=== PATIENT | male | born 1975 | race Caucasian/White ===

== ENCOUNTER → 2016-07-31 | Outpatient (CLI) | payer OTHER ==
[~2016-07-31] MED LIST: APIX1TAB PO; ASPI81TA28 PO; AZITTAB PO; B-COCAP20 PO; CALC0.5C PO; CYCL5TAB PO; DXY100 PO; HYDR-4717 PO; INSDGIPEN SC; ISOS20TA15 PO; METO25TA3 PO; METO5TAB5 PO; METR500T PO; NVLGI/PEN SC; RCL25 PO; SEVE800T7 PO; SPIR25TA PO; TOBR0.3S4 OPL; TORS100T13 PO; TORS20TA2 PO; TPRSR25 PO; VNTHFA/IN INH
[2016-07-31 14:44] LABS: BASO % 0.3 %; BASO ABS # 0.04 K/uL (0-0.2); COMPLETE YES; EOS % 0.1 %; HEMATOCRIT 32.6 % (42-52); IG% 0.3 %; LYMPH % 7.5 %; LYMPH ABS # 1.09 K/uL (1.2-3.4); MEAN CELL VOLUME 91.1 fL (80-100); MEAN CORPUSCULAR HEMOGLOBIN 30.2 pg (25-34); MEAN CORPUSCULAR HGB CONC 33.1 g/dl (32-36); MEAN PLATELET VOLUME 12.1 fL (7.4-10.4); MONO % 10.7 %; NEUT % 81.1 %; PLATELET COUNT 301 K/uL (130-400); RED BLOOD COUNT 3.58 M/uL (4.7-6.1); WHITE BLOOD COUNT 14.45 K/uL (4.8-10.8)
[2016-07-31 15:37] LABS: BLOOD UREA NITROGEN 172 mg/dl (7-18); BUN/CREATININE RATIO 20.7 (10-20); CALCIUM 10.5 mg/dl (8.5-10.1); CARBON DIOXIDE 24 mmol/L (21-32); CHLORIDE 95 mmol/L (98-107); GLUCOSE 171 mg/dl (70-99); MAGNESIUM 2.8 mg/dl (1.8-2.4); PHOSPHORUS 8.8 mg/dl (2.5-4.9); POTASSIUM 4.3 mmol/L (3.5-5.1); SODIUM 135 mmol/L (136-145)
== END | disposition home or self-care (01) ==
LOC: C.LAB1850 12:41
PROVIDERS: ATTEND Internal Medicine Nephrology
DX: D64.9 Anemia, unspecified (principal)

== ENCOUNTER 2016-08-02 05:27 | Inpatient (IN) | payer OTHER ==
[~2016-08-02] VITALS: Ht 190.5 cm; Wt 100.8 kg
[~2016-08-02 05:27] MED LIST changes: -APIX1TAB PO; -ASPI81TA28 PO; -B-COCAP20 PO; -CALC0.5C PO; -DXY100 PO; -HYDR-4717 PO; -INSDGIPEN SC; -ISOS20TA15 PO; -METO25TA3 PO; -METO5TAB5 PO; -METR500T PO; -NVLGI/PEN SC; -RCL25 PO; -SEVE800T7 PO; -SPIR25TA PO; -TORS100T13 PO; -TORS20TA2 PO; -TPRSR25 PO; -VNTHFA/IN INH
[2016-08-02 05:51] LABS: HEMATOCRIT 33.4 % (42-52); MEAN CELL VOLUME 89.3 fL (80-100); MEAN CORPUSCULAR HEMOGLOBIN 28.9 pg (25-34); MEAN CORPUSCULAR HGB CONC 32.3 g/dl (32-36); PLATELET COUNT 282 K/uL (130-400); RED BLOOD COUNT 3.74 M/uL (4.7-6.1); WHITE BLOOD COUNT 12.64 K/uL (4.8-10.8)
--- NOTE | 2016-08-02 05:56 | EMERGENCY ROOM VISIT NOTE ---
History Report prepared by Sun: Cristino Gambino Under the Supervision of: Dr. Elena Oconnell D.O. First contact with patient: 05:32 Chief Complaint: CHEST PAIN Stated Complaint: CHEST PAIN,LEGS NUMB History of Present Illness The patient is a 41 year old male who presents to the Emergency Room with complaints of resolved left sided chest pain starting around 8 pm last night. He describes it as a pinching pain. He had pain radiation to the back. His pain resolved on the way to the Emergency Room. He currently denies any chest pain. He also complains of bilateral lower extremity weakness. He has left leg pain which is similar to his previous sciatica pain. He had 2 hours of sleep last night due to the pain. He was evaluated by his PCP yesterday and had some blood work done. He has a defibrillator in place. He has a history of diabetes, hypertension, and A-Fib. He denies any history of myocardial infarction. About three and a half years ago, the patient had a cardiac catheterization which was clear. He was recently diagnosed with bronchitis. The patient has a history of kidney disease and he is scheduled to have vein mapping performed today at [place]. Source of History: patient Onset: around 8 pm last night Position: chest (left) Quality: other (pinching pain) Timing: resolved Associated Symptoms: + weakness Review of Systems See HPI for pertinent positives & negatives. A total of 10 systems reviewed and were otherwise negative. Past Medical & Surgical Medical Problems: (1) A-fib (2) Chest pain (3) Diabetes (4) Hypertension Family History Patient reports no known family medical history. Social History Smoking Status: Former Smoker Marital Status: single Occupation Status: unemployed Current/Historical Medications Scheduled Aspirin (Aspirin Ec), 81 MG PO DAILY Azithromycin (Zithromax Z-Chetan), 1 PKT PO UD Cyclobenzaprine Hcl (Flexeril), 5 MG PO TID Hydralazine Hcl (Apresoline), 50 MG PO TID Insulin Aspart (Novolog Flexpen), UNITS SC AC Insulin Glargine (Lantus Solostar), 38 UNITS SC QPM Isosorbide Dinitrate (Isordil), 20 MG PO BID Metolazone (Zaroxolyn), 5 MG PO DAILY Sevelamer Carbonate (Renvela), 1 TAB PO AC Spironolactone (Aldactone), 25 MG PO DAILY Tobramycin Sulfate (Ophth) (Tobrex Oph Jessica), 1 DROPS OPL DAILY Torsemide (Demadex), 20 MG PO QPM Torsemide (Demadex), 100 MG PO QAM Scheduled PRN Albuterol Hfa (Ventolin Hfa), 2 PUFFS INH Q6H PRN for SOB/Wheezing Allergies Coded Allergies: Cat Dander (Verified Allergy, Intermediate, RESPIRATORY SX, 08/02/16) Dust (Verified Allergy, Intermediate, ASTHMA SYMPTOMS, 08/02/16) Heparin (Verified Allergy, Intermediate, GI SYMPTOMS, 08/02/16) Uncoded Allergies: CIGARETTE SMOKE (Allergy, Unknown, SOB/COUGH, 08/02/16) WEATHER CHANGES (Allergy, Unknown, GETS SICK, 08/02/16) Physical Exam Vital Signs Date Time Temp Pulse Resp B/P (MAP) Pulse Ox O2 Delivery O2 Flow Rate FiO2 08/02/16 06:55 36.8 88 18 168/113 95 08/02/16 06:30 88 18 174/111 95 Room Air 08/02/16 05:42 95 Room Air 08/02/16 05:41 86 08/02/16 05:28 36.8 87 24 157/99 96 Room Air Physical Exam General: Slightly confused. HEENT: Head - normocephalic and atraumatic Pupils are equal, round, and reactive to light. Extraocular eye muscles are intact, and sclera are anicteric. Nose - moist nasal mucosa without discharge. Mouth - dry buccal mucosa. Oropharynx is nonerythematous and there is no tonsillar exudate or edema noted. Neck: Supple; no JVD, nuchal rigidity, cervical lymphadenopathy. Heart: Regular rate and rhythm. There is a normal S1 and S2 with no murmurs, clicks, or gallops appreciated. Lungs: Clear to auscultation bilaterally with no wheezes, rales, or rhonchi. Abdomen: Soft, completely nontender, nondistended, with good bowel sounds. There are no palpable pulsatile masses or hepatosplenomegaly. There is no guarding, rigidity, or rebound noted. Extremities: No evidence of cyanosis, clubbing, or edema. There are easily palpable peripheral pulses. Skin: warm and dry with good turgor and no rashes. Medical Decision & Procedures ER Provider Diagnostic Interpretation: X-ray results as stated below per interpretation by me: CHEST X-RAY Defibrillator in place, cardiomegaly, no pulmonary infiltrates. Laboratory Results 08/02/16 05:35 Red Blood Count 3.74, Mean Corpuscular Volume 89.3, Mean Corpuscular Hemoglobin 28.9, Mean Corpuscular Hemoglobin Concent 32.3, Mean Platelet Volume 11.0, Neutrophils (%) (Auto) 71.0, Lymphocytes (%) (Auto) 10.3, Monocytes (%) (Auto) 15.3, Eosinophils (%) (Auto) 2.6, Basophils (%) (Auto) 0.6, Neutrophils # (Auto ) 8.97, Lymphocytes # (Auto) 1.30, Monocytes # (Auto) 1.94, Eosinophils # (Auto ) 0.33, Basophils # (Auto) 0.07 08/02/16 05:35 Test 08/02/16 05:35 White Blood Count 12.64 K/uL (4.8-10.8) Red Blood Count 3.74 M/uL (4.7-6.1) Hemoglobin 10.8 g/dL (14.0-18.0) Hematocrit 33.4 % (42-52) Mean Corpuscular Volume 89.3 fL (80-100) Mean Corpuscular Hemoglobin 28.9 pg (25-34) Mean Corpuscular Hemoglobin Concent 32.3 g/dl (32-36) Platelet Count 282 K/uL (130-400) Mean Platelet Volume 11.0 fL (7.4-10.4) Neutrophils (%) (Auto) 71.0 % Lymphocytes (%) (Auto) 10.3 % Monocytes (%) (Auto) 15.3 % Eosinophils (%) (Auto) 2.6 % Basophils (%) (Auto) 0.6 % Neutrophils # (Auto) 8.97 K/uL (1.4-6.5) Lymphocytes # (Auto) 1.30 K/uL (1.2-3.4) Monocytes # (Auto) 1.94 K/uL (0.11-0.59) Eosinophils # (Auto) 0.33 K/uL (0-0.5) Basophils # (Auto) 0.07 K/uL (0-0.2) RDW Standard Deviation 48.7 fL (36.4-46.3) RDW Coefficient of Variation 15.0 % (11.5-14.5) Immature Granulocyte % (Auto) 0.2 % Immature Granulocyte # (Auto) 0.03 K/uL (0.00-0.02) Red Blood Cell Morphology Unremarkable Anion Gap 15.0 mmol/L (3-11) Est Creatinine Clear Calc Drug Dose 15.3 ml/min Estimated GFR () 8.4 Estimated GFR (Non- 7.2 BUN/Creatinine Ratio 21.7 (10-20) Calcium Level 9.9 mg/dl (8.5-10.1) Magnesium Level 2.5 mg/dl (1.8-2.4) Total Bilirubin 1.0 mg/dl (0.2-1) Aspartate Amino Transf (AST/SGOT) 18 U/L (15-37) Alanine Aminotransferase (ALT/SGPT) 20 U/L (12-78) Alkaline Phosphatase 194 U/L (45-117) Total Creatine Kinase 177 U/L (39-308) Creatine Kinase MB 21.8 ng/ml (0.5-3.6) Creatine Kinase MB Ratio 12.3 (0-3.0) Troponin I 0.230 ng/ml (0-0.045) Total Protein 8.7 gm/dl (6.4-8.2) Albumin 2.9 gm/dl (3.4-5.0) Globulin 5.8 gm/dl (2.5-4.0) Albumin/Globulin Ratio 0.5 (0.9-2) Laboratory results per my review. ECG Indication: chest pain Rate (beats per minute): 87 Rhythm: normal sinus Findings: 1st degree AV block, T-wave inversion (Lead I and aVL) Comparison ECG Date: May 2016 Change: no significant change ED Course 0532: Past medical records reviewed. The patient was evaluated in room B02. A complete history and physical exam was performed. A 12 EKG was obtained. An IV lock was initiated and labs were drawn as above. Patient had chest x-ray as described above. We were able to obtain previous laboratory studies from May 2016 in [facility]. We also obtained a 12 EKG from May 2016. 0624: I discussed the patient's case with Dr. Torres, from [facility]. 0628: Upon reevaluation, I discussed findings and results with him. He verbalized agreement of the treatment plan. The patient will be evaluated for further management and care. Medical Decision The patient presents to the Emergency Room with complaints of chest pain. Differential diagnosis includes but is not limited to angina, cardiac ischemia, STEMI, pleurisy, costochondritis. His labs showed white count 12.6, anemic with hemoglobin of 10.8, BUN 178, creatinine 8.2, glucose 144, magnesium 2.5, troponin 0.0230, potassium level 4.3. I attest that I have personally reviewed the patient's current medication list. Patient was found to have an elevated blood pressure and was referred to their primary doctor for recheck and further treatment. The patient is suffering from acute renal failure. He presents to the emergency department with chest pain. EKG was unchanged but the patient does have elevated troponin. The patient will require dialysis. I discussed the case with the [facility] Hospitalist and they will evaluate for further management. The patient was noted to have a low magnesium. Consults Time Called: 619 Consulting Physician: Dr. Torres, from [facility] Hospitalist Service Returned Call: 06 I discussed the patient's case with Dr. Torres, from [facility]. Impression Primary Impression: Acute renal failure Additional Impressions: Acute non-ST segment elevation myocardial infarction Hypomagnesemia Scribe Attestation The scribe's documentation has been prepared under my direction and personally reviewed by me in its entirety. I confirm that the note above accurately reflects all work, treatment, procedures, and medical decision making performed by me. Departure Information Dispostion Being Evaluated By Hospitalist Referrals No Doctor, Assigned (PCP) Patient Instructions My [facility] Problem Qualifiers
[2016-08-02 06:10] LABS: BASO % 0.6 %; BASO ABS # 0.07 K/uL (0-0.2); COMPLETE YES; EOS % 2.6 %; IG% 0.2 %; LYMPH % 10.3 %; MONO % 15.3 %
[2016-08-02 06:12] LABS: ALB/GLOB RATIO 0.5 (0.9-2); BUN/CREATININE RATIO 21.7 (10-20); CALCIUM 9.9 mg/dl (8.5-10.1); CREATININE 8.2 mg/dl (0.60-1.40); MAGNESIUM 2.5 mg/dl (1.8-2.4); POTASSIUM 4.3 mmol/L (3.5-5.1)
[2016-08-02 06:19] LABS: CKMB/CK RATIO 12.3 (0-3.0)
[2016-08-02] MEDS ORDERED: INSDGIPEN SC (06:24)
[2016-08-02] MEDS ORDERED: NVLGI/PEN SC (06:24)
[2016-08-02] MEDS ORDERED: VNTHFA/IN INH (06:26)
[2016-08-02] MEDS ORDERED: ASPI81TA28 PO (06:26)
[2016-08-02] MEDS ORDERED: METO5TAB5 PO (06:28)
[2016-08-02] MEDS ORDERED: TORS20TA2 PO (06:28)
[2016-08-02] MEDS ORDERED: SPIR25TA PO (06:28)
[2016-08-02] MEDS ORDERED: TORS100T13 PO (06:28)
[2016-08-02] MEDS ORDERED: HYDR-4717 PO (06:30)
[2016-08-02] MEDS ORDERED: ISOS20TA15 PO (06:30)
[2016-08-02] MEDS ORDERED: SEVE800T7 PO (06:30)
[2016-08-02 07:00] VITALS: O2SAT 95; BMI 29.2
[2016-08-02] MEDS ORDERED: HydrALAZINE HCL 20 MG/ML VIAL IM PRN (07:15)
--- NOTE | 2016-08-02 07:30 | DIAGNOSTIC IMAGING REPORT ---
CHEST ONE VIEW PORTABLE CLINICAL HISTORY: cp dyspnea COMPARISON STUDY: No previous studies for comparison. FINDINGS: The bones of congestive failure. Moderate cardiomegaly. Unipolar cardiac pacemaker/defibrillator. IMPRESSION: Moderate cardiomegaly. Electronically signed by: Familia Delgado M.D. 08/02/2016 7:29 AM Dictated Date/Time: 08/02/2016 7:27 AM
[2016-08-02 07:58] VITALS: BP 166/103; PULSE 85; TEMP 36.6; O2SAT 98
[2016-08-02] MEDS ORDERED: PNEUMOCOCCAL POLYSACCHARIDES 25 MCG/0.5 ML VIAL/SYR IM. ONE (08:30)
[2016-08-02] MEDS ORDERED: PNEUMOCOCCAL ADMINISTRATION CHARGE ONE (08:30)
--- NOTE | 2016-08-02 08:44 | History and Physical ---
History & Physical Date & Time of Service: Aug 02, 2016 at 07:13 Chief Complaint: Chest Pain,Legs Numb Primary Care Physician: No Doctor, Assigned History of Present Illness Source: patient, clinic records, hospital records 41 year old male with PMH of DM, HTN, CKD stage 5, cardiomyopathy, ICD placement presents to the Emergency Room with complaints chest pain that started around last night. Pt recently moved [facility] to [place]. He does not yet establish with a PCP. Pt said that the pain located below his nipple area, sharp pain, grade 2/10. The pain is radiated to his back. He also complaint left shoulder pain, and right wrist pain associated with 4th and 5th fingers numbness. Pt said that currently he does not have any chest pain. He said that the pain come and goes and usually lasted a few second. he said that nothing triggers the Chest pain. The chest pain can occur at anytime. He also complains of bilateral lower extremity weakness and left leg pain which is similar to his previous sciatica pain. he said the pain kept him up all night. He has a defibrillator in place. He had a cardiac catheterization done 3yrs ago that was normal. He is scheduled to have vein mapping today In [place]. He continues to produce urine. He was recently dx with bronchitis and being treated with Zithromax. Denies any palpitation, SOB, fever and chills. Past Medical/Surgical History Medical Problems: (1) A-fib Status: Resolved (2) Diabetes Status: Chronic (3) Hypertension Status: Chronic Family History Patient reports no known family medical history. Social History Smoking Status: Former Smoker Marital Status: single Occupational Status: unemployed Allergies Coded Allergies: Cat Dander (Verified Allergy, Intermediate, RESPIRATORY SX, 08/02/16) Dust (Verified Allergy, Intermediate, ASTHMA SYMPTOMS, 08/02/16) Heparin (Verified Allergy, Intermediate, GI SYMPTOMS, 08/02/16) Uncoded Allergies: CIGARETTE SMOKE (Allergy, Unknown, SOB/COUGH, 08/02/16) WEATHER CHANGES (Allergy, Unknown, GETS SICK, 08/02/16) Home Medications Scheduled Aspirin (Aspirin Ec), 81 MG PO DAILY Azithromycin (Zithromax Z-Chetan), 1 PKT PO UD Cyclobenzaprine Hcl (Flexeril), 5 MG PO TID Hydralazine Hcl (Apresoline), 50 MG PO TID Insulin Aspart (Novolog Flexpen), UNITS SC AC Insulin Glargine (Lantus Solostar), 38 UNITS SC QPM Isosorbide Dinitrate (Isordil), 20 MG PO BID Metolazone (Zaroxolyn), 5 MG PO DAILY Sevelamer Carbonate (Renvela), 1 TAB PO AC Spironolactone (Aldactone), 25 MG PO DAILY Tobramycin Sulfate (Ophth) (Tobrex Oph Jessica), 1 DROPS OPL DAILY Torsemide (Demadex), 20 MG PO QPM Torsemide (Demadex), 100 MG PO QAM Scheduled PRN Albuterol Hfa (Ventolin Hfa), 2 PUFFS INH Q6H PRN for SOB/Wheezing Review of Systems Constitutional: + fatigue, No fever, No chills, No sweats, No weakness Eyes: No eye pain, No discharge ENT: No hearing loss, No nasal symptoms, No sore throat Respiratory: + cough, No wheezing, No dyspnea at rest Cardiovascular: + chest pain, No orthopnea, No palpitations Abdomen: No pain, No nausea, No vomiting Musculoskeletal: + joint pain, + muscle pain, + problem reported (right wrist pain) Genitourinary - Male: No hematuria, No dysuria Neurologic: No memory loss, No paralysis Psychiatric: No substance abuse Endocrine: + fatigue Hematologic / Lymphatic: No night sweats Integumentary: No rash, No itch Physical Exam Vital Signs Date Time Temp Pulse Resp B/P (MAP) Pulse Ox O2 Delivery O2 Flow Rate FiO2 08/02/16 06:55 36.8 88 18 168/113 95 08/02/16 06:30 88 18 174/111 95 Room Air 08/02/16 05:42 95 Room Air 08/02/16 05:41 86 08/02/16 05:28 36.8 87 24 157/99 96 Room Air General Appearance: WD/WN, no apparent distress Head: normocephalic, atraumatic Eyes: normal inspection, PERRL ENT: hearing grossly normal Neck: supple, no JVD Respiratory/Chest: normal breath sounds, no respiratory distress, no accessory muscle use Cardiovascular: no JVD, no murmur Abdomen/GI: normal bowel sounds, non tender Back: no CVA tenderness, + pertinent finding (back pain) Extremities/Musculoskelatal: no calf tenderness Neurologic/Psych: alert, normal mood/affect, oriented x 3 Skin: warm/dry, no rash, + pertinent finding (Left buttock- (+) small open wound, lower left buttock, no erythema/warmth/tenderness) Diagnostics Laboratory Results Results Past 24 Hours Test 08/02/16 05:35 Range/Units White Blood Count 12.64 4.8-10.8 K/uL Red Blood Count 3.74 4.7-6.1 M/uL Hemoglobin 10.8 14.0-18.0 g/dL Hematocrit 33.4 42-52 % Mean Corpuscular Volume 89.3 80-100 fL Mean Corpuscular Hemoglobin 28.9 25-34 pg Mean Corpuscular Hemoglobin Concent 32.3 32-36 g/dl Platelet Count 282 130-400 K/uL Mean Platelet Volume 11.0 7.4-10.4 fL Neutrophils (%) (Auto) 71.0 % Lymphocytes (%) (Auto) 10.3 % Monocytes (%) (Auto) 15.3 % Eosinophils (%) (Auto) 2.6 % Basophils (%) (Auto) 0.6 % Neutrophils # (Auto) 8.97 1.4-6.5 K/uL Lymphocytes # (Auto) 1.30 1.2-3.4 K/uL Monocytes # (Auto) 1.94 0.11-0.59 K/uL Eosinophils # (Auto) 0.33 0-0.5 K/uL Basophils # (Auto) 0.07 0-0.2 K/uL RDW Standard Deviation 48.7 36.4-46.3 fL RDW Coefficient of Variation 15.0 11.5-14.5 % Immature Granulocyte % (Auto) 0.2 % Immature Granulocyte # (Auto) 0.03 0.00-0.02 K/uL Red Blood Cell Morphology Unremarkable Sodium Level 138 136-145 mmol/L Potassium Level 4.3 3.5-5.1 mmol/L Chloride Level 100 98-107 mmol/L Carbon Dioxide Level 23 21-32 mmol/L Anion Gap 15.0 3-11 mmol/L Blood Urea Nitrogen 178 7-18 mg/dl Creatinine 8.20 0.60-1.40 mg/dl Est Creatinine Clear Calc Drug Dose 15.3 ml/min Estimated GFR () 8.4 Estimated GFR (Non- 7.2 BUN/Creatinine Ratio 21.7 10-20 Random Glucose 144 70-99 mg/dl Calcium Level 9.9 8.5-10.1 mg/dl Magnesium Level 2.5 1.8-2.4 mg/dl Total Bilirubin 1.0 0.2-1 mg/dl Aspartate Amino Transf (AST/SGOT) 18 15-37 U/L Alanine Aminotransferase (ALT/SGPT) 20 12-78 U/L Alkaline Phosphatase 194 45-117 U/L Total Creatine Kinase 177 39-308 U/L Creatine Kinase MB 21.8 0.5-3.6 ng/ml Creatine Kinase MB Ratio 12.3 0-3.0 Troponin I 0.230 0-0.045 ng/ml Total Protein 8.7 6.4-8.2 gm/dl Albumin 2.9 3.4-5.0 gm/dl Globulin 5.8 2.5-4.0 gm/dl Albumin/Globulin Ratio 0.5 0.9-2 Diagnostic Radiology CHEST ONE VIEW PORTABLE CLINICAL HISTORY: cp dyspnea COMPARISON STUDY: No previous studies for comparison. FINDINGS: The bones of congestive failure. Moderate cardiomegaly. Unipolar cardiac pacemaker/defibrillator. IMPRESSION: Moderate cardiomegaly. Electronically signed by: Familia Delgado M.D. 08/02/2016 7:29 AM Dictated Date/Time: 08/02/2016 7:27 AM Impression Assessment and Plan CHEST PAIN Significant risks factor such as DM, HTN, CKD stage 5, Cardiomyopathy Need to R/O ACS 1set troponin elevated EKG did not show any significant ischemic changes Will monitor serial CM, check lipid panel If troponin trending up, will consult cardiology Monitor in telemetry Continue aspirin Pharmacology Nuclear Stress test done on 01/26 1) Uneventful regadenoson stress test 2) large size severe intensity basal to mid predominantly fixed inferior wall perfusion defect consistent with infarct with minimal periinfarct ischemia 3) left ventricular cavity size is severly enlarged, reduced systolic function, EF 26% global hypokinesis with akinetic basal to mid inferior wall ELEVATED TROPONIN Possible related to CKD stage 5 monitor troponin repeat EKG if chest pain persists and EKG trending up CKD STAGE 5 Has an appt today for Vein mapping in [place] Will consult Nephrology Consult Vascular surgery for possible vein mapping Avoid nephrotoxic agents CARDIOMYOPATHY Hx ICD placement Monitor in telemetry HTN BP elevated Continue home medS Hydralazine prn for SBP above 165 DM TYPE 2 HBA1C 8.2 on 05/28 Continue Lantus Insulin coverage MILD ELEVATION WBC Afebrile Denies any urinary symptoms Wound doesn't look infected continue monitor CBC LEFT WOUND BUTTOCK Daily wound care wound care consulted BRONCHITIS continue Zithromax for 3 days Duoneb treatment BACK PAIN pain medication prn continue cyclobenzaprine RIGHT WRIST PAIN associated with 4th and 5th fingers numbness Might be related to carpal tunnel denies any recent injury or trauma Will get an Xray of the wrist continue pain management DVT PX on heparin subq CODE STATUS FULL CODE Level of Care Telemetry Resuscitation Status FULL RESUSCITATION VTE Prophylaxis VTE Risk Assessment Done? Y/N: Yes Risk Level: Moderate Given or contraindicated: Unfractionated heparin SQ
[2016-08-02] MEDS ORDERED: GUAIFENESIN 200 MG TAB PO PRN (08:45)
[2016-08-02] MEDS ORDERED: ALBUT/IPRATROP 3MG/0.5MG NEB 3 ML VIAL INH PRN (08:45)
[2016-08-02] MEDS ORDERED: GLUCOSE 40% GEL 15 GM TUBE PO PRN (08:45)
[2016-08-02] MEDS ORDERED: GLUCAGON FOR INJ 1 MG VIAL SQ PRN (08:45)
[2016-08-02] MEDS ORDERED: DEXTROSE 50% 50 ML SYR IV PRN (08:45)
--- NOTE | 2016-08-02 08:50 | DIAGNOSTIC IMAGING REPORT ---
RIGHT WRIST MIN 3 VIEWS ROUTINE CLINICAL HISTORY: Wrist pain Right pain COMPARISON: None. DISCUSSION: Mild degenerative change. Soft tissue vascular calcification. No acute bony abnormality. There is no evidence for soft tissue swelling. IMPRESSION: Minimal/mild degenerative change. Soft tissue vascular calcification. No acute bony abnormality. Electronically signed by: Familia Delgado M.D. 08/02/2016 8:49 AM Dictated Date/Time: 08/02/2016 8:47 AM
[2016-08-02 09:05] LABS: INR 1.2 (0.9-1.1); PROTHROMBIN TIME (PATIENT) 12.5 SECONDS (9.0-12.0)
[2016-08-02] MEDS: ASPIRIN 81 MG ECTAB PO SCH (10:57)
[2016-08-02] MEDS: TOBRAMYCIN SULF 0.3% OP SOLN 5 ML BTL OPL SCH (10:58)
[2016-08-02] MEDS: TORSEMIDE 20 MG TAB PO SCH ×2 (10:59→17:43)
[2016-08-02] MEDS: CYCLOBENZAPRINE HCL 10 MG TAB PO SCH ×3 (10:59→19:42)
[2016-08-02] MEDS: METOLAZONE 5 MG TAB PO SCH (10:59)
[2016-08-02] MEDS: HYDROCODONE/ACETAMOPHEN 5/325MG TAB PO PRN (11:11)
[2016-08-02 11:39] VITALS: BP 166/103; PULSE 86; TEMP 36.7; O2SAT 94
[2016-08-02] MEDS: SPIRONOLACTONE 25 MG TAB PO SCH (11:48)
[2016-08-02] MEDS: AZITHROMYCIN 250 MG TAB PO SCH (11:48)
[2016-08-02] MEDS ORDERED: CLONIDINE HCL 0.1 MG TAB PO PRN (12:00)
[2016-08-02 12:01] LABS: ESTIMATED AVERAGE GLUCOSE 186 mg/dl; HA1C FLAG Normal (Normal)
[2016-08-02] MEDS: ISOSORBIDE DINITRATE 20 MG TAB PO SCH (13:55)
[2016-08-02] MEDS: INSULIN ASPART 100 UNITS/ML 3 ML PEN SC SCH ×3 (13:57→19:42)
[2016-08-02] MEDS: NITROGLYCERIN OINT 2% 1GM PACKET EXT SCH ×3 (13:58→23:02)
[2016-08-02] MEDS ORDERED: HEPARIN SOD 5000 UNIT/0.5 ML CARP SQ SCH (14:00)
--- NOTE | 2016-08-02 14:08 | Progress Note ---
Medicine Progress Note Date & Time of Visit: Aug 02, 2016 at 13:56. Subjective patient seen resting in bed, comfortable appears weak reports intermittent chest pain, more on the left side, radiating to the left arm and back also has chronic sciatica pain- left and bilateral leg pain- cramping worse with ambulation denies headache, dizziness, nausea, abdominal pain, poor appetite no other symptoms Objective Last 8 Hrs Date Time Temp Pulse Resp B/P (MAP) Pulse Ox O2 Delivery O2 Flow Rate FiO2 08/02/16 11:39 36.7 86 16 166/103 (124) 94 Room Air 08/02/16 07:58 36.6 85 18 166/103 (124) 98 Room Air 08/02/16 07:00 95 Room Air 08/02/16 06:55 36.8 88 18 168/113 95 08/02/16 06:30 88 18 174/111 95 Room Air Physical Exam: General- oriented x 3, not in distress, speaks in sentences with no effort Head- atraumatic Eyes- EOMI, anicteric Neck- no JVD Lungs- clear breath sounds bilaterally, no rales/wheezing Heart- regular rhythm; no murmur, normal rate no chest tenderness Abdomen- normal bowel sounds, soft, nontender Extremities- no pretibial edema, no calf tenderness; peripheral pulses intact Left buttock- (+) small open wound, lower left buttock, no erythema/warmth/ tenderness/discharge Neuro- alert, oriented x 3; EOMI; no facial palsy; no dysarthria; motor 5/5 bilaterally Skin- warm & dry Laboratory Results: Last 24 Hours Test 08/02/16 05:35 08/02/16 11:18 08/02/16 11:53 White Blood Count 12.64 K/uL Red Blood Count 3.74 M/uL Hemoglobin 10.8 g/dL Hematocrit 33.4 % Mean Corpuscular Volume 89.3 fL Mean Corpuscular Hemoglobin 28.9 pg Mean Corpuscular Hemoglobin Concent 32.3 g/dl Platelet Count 282 K/uL Mean Platelet Volume 11.0 fL Neutrophils (%) (Auto) 71.0 % Lymphocytes (%) (Auto) 10.3 % Monocytes (%) (Auto) 15.3 % Eosinophils (%) (Auto) 2.6 % Basophils (%) (Auto) 0.6 % Neutrophils # (Auto) 8.97 K/uL Lymphocytes # (Auto) 1.30 K/uL Monocytes # (Auto) 1.94 K/uL Eosinophils # (Auto) 0.33 K/uL Basophils # (Auto) 0.07 K/uL RDW Standard Deviation 48.7 fL RDW Coefficient of Variation 15.0 % Immature Granulocyte % (Auto) 0.2 % Immature Granulocyte # (Auto) 0.03 K/uL Red Blood Cell Morphology Unremarkable Prothrombin Time 12.5 SECONDS Prothromb Time International Ratio 1.2 Sodium Level 138 mmol/L Potassium Level 4.3 mmol/L Chloride Level 100 mmol/L Carbon Dioxide Level 23 mmol/L Anion Gap 15.0 mmol/L Blood Urea Nitrogen 178 mg/dl Creatinine 8.20 mg/dl Est Creatinine Clear Calc Drug Dose 15.3 ml/min Estimated GFR () 8.4 Estimated GFR (Non- 7.2 BUN/Creatinine Ratio 21.7 Random Glucose 144 mg/dl Calcium Level 9.9 mg/dl Magnesium Level 2.5 mg/dl Total Bilirubin 1.0 mg/dl Aspartate Amino Transf (AST/SGOT) 18 U/L Alanine Aminotransferase (ALT/SGPT) 20 U/L Alkaline Phosphatase 194 U/L Total Creatine Kinase 177 U/L Creatine Kinase MB 21.8 ng/ml 19.1 ng/ml Creatine Kinase MB Ratio 12.3 Troponin I 0.230 ng/ml 0.218 ng/ml Total Protein 8.7 gm/dl Albumin 2.9 gm/dl Globulin 5.8 gm/dl Albumin/Globulin Ratio 0.5 Estimated Average Glucose 186 mg/dl Hemoglobin A1c 8.1 % Bedside Glucose 128 mg/dl Assessment & Plan 41 year old male with history of DM Type 2, HTN, CAD, Cardiomyopathy, CKD 5 presenting with chest pain. CHEST PAIN HISTORY OF CAD, CARDIOMYOPATHY Significant risks factor such as DM, HTN, CKD stage 5, Cardiomyopathy -- cardiac markers x stable -- ekg no signs of acute ischemi -- echo: pending -- Cardiology consulted -- on Aspirin, Imdur -- will obtain records from PCP CARDIOMYOPATHY Hx ICD placement euvolemic -- continue Metolazone, Spironolactone, Torsemide CKD STAGE 5 Nephrology consulted HTN add PRN Clonidine on Hydralazine, Imdur Cardiology consulted DM TYPE 2 HBA1C 8.2 on 05/28 Continue Lantus Insulin coverage LEFT WOUND BUTTOCK wound care consulted BRONCHITIS continue Zithromax for 3 days Duoneb treatment BACK PAIN pain medication prn continue cyclobenzaprine RIGHT WRIST PAIN possible carpal tunnel syndrom xray wrist: negative DVT PX SCDs patient reports previous episode of nausea, sweats with heparin- declining heparin stating he does not want any more side effects explained that this is for DVT prevention CODE STATUS FULL CODE Dispo pending Current Inpatient Medications: Current Inpatient Medications Medications (Trade) Dose Ordered Sig/Niki Route Start Time Stop Time Status Last Admin Dose Admin Aspirin (Ecotrin Tab) 81 mg DAILY PO 08/02/16 09:00 09/01/16 08:59 08/02/16 10:57 81 MG Cyclobenzaprine HCl (Flexeril Tab) 5 mg TID PO 08/02/16 09:00 09/01/16 08:59 08/02/16 10:59 5 MG Hydralazine HCl (Apresoline Tab) 50 mg TID PO 08/02/16 09:00 09/01/16 08:59 08/02/16 10:58 50 MG Insulin Glargine (Lantus Solostar Pen) 35 unit QPM SC 08/02/16 21:00 09/01/16 20:59 Isosorbide Dinitrate (Isordil Tab) 20 mg BID@0700,1200 PO 08/02/16 12:00 09/01/16 11:59 Metolazone (Zaroxolyn Tab) 5 mg DAILY PO 08/02/16 09:00 09/01/16 08:59 08/02/16 10:59 5 MG Spironolactone (Aldactone Tab) 25 mg DAILY@0930 PO 08/02/16 09:30 09/01/16 09:29 08/02/16 11:48 25 MG Torsemide (Demadex Tab) 20 mg DAILY@1700 PO 08/02/16 17:00 09/01/16 16:59 Torsemide (Demadex Tab) 100 mg QAM PO 08/02/16 09:00 09/01/16 08:59 08/02/16 10:59 100 MG Hydralazine HCl (HydrALAZINE INJ) 10 mg Q6 PRN IM 08/02/16 07:15 09/01/16 07:14 Azithromycin (Zithromax Tab) 250 mg DAILY PO 08/02/16 10:00 08/09/16 09:59 08/02/16 11:48 250 MG Tobramycin Sulfate (Tobrex Oph Soln) 1 drops DAILY OPL 08/02/16 09:00 08/12/16 08:59 08/02/16 10:58 1 DROPS Insulin Aspart (novoLOG ASPART) SLIDING SCALE If C... ACHS SC 08/02/16 11:00 09/01/16 10:59 Glucose (Glucose 40% Gel) 15-30 GRAMS 15 GRAMS... UD PRN PO 08/02/16 08:45 09/01/16 08:44 Glucose (Glucose Chew Tab) 4-8 Tablets 4 Tabl... UD PRN PO 08/02/16 08:45 09/01/16 08:44 Dextrose (Dextrose 50% 50ML Syringe) 25-50ML OF 50% DW IV FOR... UD PRN IV 08/02/16 08:45 09/01/16 08:44 Glucagon (Glucagon Inj) 1 mg UD PRN SQ 08/02/16 08:45 09/01/16 08:44 Acetaminophen/ Hydrocodone Bitart ([place] 5/325 Tab) 1 tab Q8 PRN PO 08/02/16 08:45 08/16/16 08:44 08/02/16 11:11 1 TAB Albuterol/ Ipratropium (Duoneb) 3 ml Q4R PRN INH 08/02/16 08:45 09/01/16 08:44 Guaifenesin (Organidin Nr Tab) 200 mg Q8 PRN PO 08/02/16 08:45 09/01/16 08:44 Sevelamer HCl (Renvela) 800 mg AC PO 08/02/16 16:15 09/01/16 16:14 Clonidine HCl (Catapres Tab) 0.1 mg Q6H PRN PO 08/02/16 12:00 09/01/16 11:59 Nitroglycerin (Nitroglycerin 2% Oint) 1 inch Q6 EXT 08/02/16 13:00 09/01/16 12:59
[2016-08-02] MEDS ORDERED: PHARMACY GLYCEMIC MGMT CONSULT PRN (14:11)
[2016-08-02] MEDS ORDERED: METOPROLOL SUCC 25MG EXT REL TAB PO ONE (14:17)
[2016-08-02] MEDS ORDERED: PERFLUTREN LIPID MICROSPHERE (DEFINITY) IV ONE (14:35)
[2016-08-02 15:01] VITALS: BP 160/88; PULSE 85; TEMP 36.8; O2SAT 92
--- NOTE | 2016-08-02 15:34 | Pharmacy Progress Note ---
Glycemic Control Intl Consult Date of Service Aug 02, 2016. Scope Glycemic Pharmacist consulted by Dr Gregory on 08/02/16 for glycemic control and to write orders per [facility] inpatient glycemic control protocol Objective Weight (Kilograms): 106.000 Accuchecks BSG (last 24hrs): Test 08/02/16 05:35 08/02/16 11:53 Random Glucose 144 mg/dl (70-99) Bedside Glucose 128 mg/dl (70-99) Laboratory Data (last 24hrs) Test 08/02/16 05:35 08/02/16 11:18 Anion Gap 15.0 mmol/L BUN/Creatinine Ratio 21.7 Blood Urea Nitrogen 178 mg/dl Creatinine 8.20 mg/dl Potassium Level 4.3 mmol/L Sodium Level 138 mmol/L White Blood Count 12.64 K/uL Red Blood Count 3.74 M/uL Hemoglobin 10.8 g/dL Hematocrit 33.4 % Mean Corpuscular Volume 89.3 fL Mean Corpuscular Hemoglobin 28.9 pg Mean Corpuscular Hemoglobin Concent 32.3 g/dl Platelet Count 282 K/uL Mean Platelet Volume 11.0 fL Neutrophils (%) (Auto) 71.0 % Lymphocytes (%) (Auto) 10.3 % Monocytes (%) (Auto) 15.3 % Eosinophils (%) (Auto) 2.6 % Basophils (%) (Auto) 0.6 % Neutrophils # (Auto) 8.97 K/uL Lymphocytes # (Auto) 1.30 K/uL Monocytes # (Auto) 1.94 K/uL Eosinophils # (Auto) 0.33 K/uL Basophils # (Auto) 0.07 K/uL Hemoglobin A1c 8.1 % HbA1c Test 08/02/16 11:18 Hemoglobin A1c 8.1 % (4.5-5.6) H Recent Pertinent Medications Outpatient Anti-diabetic Regimen: * Lantus 38 units qpm, Novolog 10-14 units per sliding scale tidm * A1c = 8.1 % 08/02/16 The patient is currently receiving: * Basal insulin: Lantus 35 units every pm * Correctional Insulin: Novolog Correction per scale ACHS Goal Range: Low 140 mg/dL - High 180 mg/dL Correction Factor: 40 mg/dL/unit * Prandial insulin: Per carb ratio of 1 unit per 14 grams CHO consumed * Oral Agents: none Risk Factors for Insulin Resistance: * Steroids: no * Infection: recent bronchitis, on Zithromax po * Pressors: no * IVF: no * Recent Surgery: no * Diet: type 2 diabetic,AHA, low Na+, low K+, renal * Mechanical Ventilation: no Assessment & Plan ASSESSMENT: * ADA & AACE recommend a goal blood sugar range 140-180 mg/dl for the majority of critically ill & non-critically ill patients. However, more stringent targets may be selected in individual cases. * 41 yo type 2 diabetic rather poorly controlled on insulin, now with chest pain , renal failure. BSG's good so far though stress has increased and po intake has decreased. Will decrease goal range as patient is not critically ill, and tighten correction and carb ratio. Will reassess in am. PLAN FOR INPATIENT GLYCEMIC CONTROL: * Continuing Lantus 35 units SQ HS * Changing correction factor to 20 mg/dl/unit * Changing carb ratio to 1 unit per 7 grams CHO consumed * Changing goal range to Low 110 mg/dL - High 150 mg/dL * Please note that the plan above was derived based on current level of insulin resistance and hospital stress. These recommendations are appropriate for inpatient admission only. Plan of care upon discharge will need to be reassessed to avoid potential outpatient hypo/hyperglycemia. Thank you.
--- NOTE | 2016-08-02 16:19 | CARDIOLOGY CONSULTATION ---
DATE OF CONSULTATION: 08/02/2016 DATE OF CONSULTATION: 08/02/2016. REFERRING PHYSICIAN: Dr. Gregory. INDICATIONS: Chest pain, hypertension, renal insufficiency, elevated troponin. HISTORY OF PRESENT ILLNESS: The patient is a 41-year-old male whose history per review of records is notable for longstanding hypertension with hypertensive heart disease and idiopathic dilated cardiomyopathy, severe LV dysfunction with ejection fraction approximately 25% with chronic class 2-3 heart failure. He has been followed for history of worsening renal insufficiency now stage V. His past evaluations and treatments have included atrial flutter ablation in 2012, remote cardiac catheterization in 2007 without ischemic heart disease, prior history of [employer] ICD implantation with generator exchange in 2007, diabetes, chronic back pain and sciatica per patient. Patient presents now having been admitted with sharp jabbing intermittent pain less than a second in duration across his anterior and left precordium, occasionally intermittent left shoulder numbness and right wrist pain. Symptoms were not exertionally related. Symptoms are brief in nature. Notes no dizziness, lightheadedness. Notes no tachypalpitations. Notes no melena, hematochezia, dysuria or hematuria. Does continue to make urine though notes urine volumes have decreased. Feels weight has been stable. Has been treated recently for bronchitis with azithromycin. Still has residual cough. Notes no overt orthopnea, though does not sleep well at night due to cough and low back pain. Notes no bleeding difficulties. Notes no melena or hematochezia. Notes no headache or visual changes. Feels pain improved after taking usual medications since admission. Notes blood pressure always runs substantially elevated. The patient was markedly hypertensive on admission. He denies any defibrillator tenderness or activation. ALLERGIES: NOTED TO BE CIGARETTE SMOKE, CAT DANDER, DUST, HEPARIN. MEDICATIONS PRIOR TO HOSPITALIZATION: Per report were albuterol inhaler, aspirin 81 mg per day, recent addition of azithromycin, Flexeril 5 mg t.i.d., Apresoline 50 t.i.d., NovoLog and Lantus insulin, Isordil 20 b.i.d., metolazone 5 mg per day, Renvela 1 tablet AC, spironolactone 25 mg per day, torsemide 20 mg p.o. q.p.m., 100 mg q.a.m., Tobrex eyedrops. PAST SURGICAL HISTORY: Notable for as described ICD implantation, single lead 2007 as revision of initial study, prior remote cardiac catheterization in 2007, prior flutter ablation in 2011. SOCIAL HISTORY: The patient is a current resident at [place], is a nonsmoker, nondrinker. 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 FAMILY HISTORY: Positive for hypertension in both parents. Heart disease in grandparents. PHYSICAL EXAMINATION: VITAL SIGNS: Heart rate is 86, blood pressure is 166/103. GENERAL: The patient is an male in no acute distress, feels improved since hospitalization though little change clinically. NECK: Thick. There is no distinct jugular venous distention. LUNGS: Reveal mildly diminished breath sounds, but no rhonchi, rale or wheeze. CARDIOVASCULAR EXAMINATION: Regular. There is a grade 2/6 systolic murmur at the apical heave. There is no diastolic murmur. There is no audible S3 gallop. Pacer defibrillator sites in the right shoulder without tenderness. ABDOMEN: Soft, nontender. EXTREMITIES: Without cyanosis or clubbing. There are chronic stasis changes with 1+ lower extremity edema. DATA: Echocardiogram is pending. EKG reveals sinus rhythm with first degree AV block, rate of 87, left anterior fascicular block. LABORATORY STUDIES: Hemoglobin A1c is 8.1. Sodium is 138, potassium is 4.3, chloride is 100, bicarbonate is 23, BUN is 178, creatinine is 8.2. Troponin is 0.23 and comparable to prior hospitalizations per review of records. Chest x-ray reveals no pulmonary edema. White cell count 12.6, hemoglobin is 10.8. IMPRESSION: A 41-year-old male with history of longstanding hypertension, hypertensive heart disease and nonischemic cardiomyopathy, prior single total ICD implantation in 2007, prior flutter ablation, presents now with history of compensated class 2-3 heart failure with atypical chest pain, sharp, jabbing discomfort in the setting of nonischemic cardiomyopathy and marked uremia. Concern regarding likely component renal insufficiency contributing as well as significant hypertensive disease. PLAN: Will be to add topical nitrates. Echocardiogram will be reviewed. Nephrology will be recommended to be consulted. While in hospital will arrange for pacer defibrillator to be checked if not recently performed. Will add low dose beta viktoriya to regimen cautiously in the setting of first degree AV block with Toprol-XL 12.5 mg twice per day. All other home medications will be continued.
--- NOTE | 2016-08-02 17:10 | Nephrology Consultation ---
Nephrology Consultation Date & Providers Date of Consultation: Aug 02, 2016. Primary Care Provider: No Doctor, Assigned Referring Provider: Reason for Consultation Renal insufficiency History of Present Illness Mr. Cliff Tucker is a 41-year-old male with chronic kidney disease class V. The patient moved to [facility] from [place], [place]. He is now living in [place]. I met the patient in [place] [facility] [place]. He is transferring care from Dr. Mike Figueroa of [facility]. Arrangements for made for vein mapping which was scheduled for today. The patient has an appointment with vascular surgery in [place] next week for PD catheter and AVF placement. Mr. Tucker's baseline creatinine had been approximately 7 milligram/deciliter in May. Creatinine is currently 8. Cliff denied any specific uremic symptoms. His appetite is good. Activity tolerance is also appropriate. He has not witnessed any notable signs of fluid retention. He is interested in home dialysis options. He would like to plan for peritoneal dialysis. The patient's primary care provider in [place] was Dr. Evan Watts. 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 Robinson Hightower of the [place] [facility]. He has not established a primary care physician or global creative chairman locally at this time. Medical history is notable for an idiopathic cardiomyopathy with chronic systolic congestive heart failure. He has an ICD and history of ventricular arrhythmia in the past. Cliff has hypertension as well as adult onset diabetes mellitus. He underwent a left heart catheterization previously which did not show significant coronary artery disease. Most recent hemoglobin A1c was 8.2 in May. He denies significant retinopathy or neuropathy. He has visual loss associated with cataracts. He is planning on scheduling surgery for cataract extraction in the near future. This would be scheduled at [facility] in [facility]. Cliff also reports a significant history of morbid obesity. He has been able to lose nearly 100 lbs over the past several years using diet and regular walking exercise. The patient was evaluated in the emergency department at [facility] earlier this week. He was diagnosed with bronchitis as well as sciatica. Has a chronic history of sciatic pain. He was started on Flexeril to help with lower back symptoms. There has been improvement with the medication. He appears to be tolerating the medication well. He was also given a 5 day course of azithromycin. For mineral bone disorder and hyperphosphatemia, he has been taking Tums 2 tablets with each meal. He is maintained on a vitamin B1 supplement. He presented to the ED at [facility] today with chest pain and worsening symptoms of sciatica in both legs. He denies significant shortness of breath. Blood pressure is elevated. He denies headaches or visual changes. EKG did not show any acute changes. TTE is pending. Cardiology consultation was reviewed. Troponin slightly elevated. Past Medical/Surgical History Medical: Stage 5 chronic kidney disease Anemia DM type 2 Dyslipidemia Heart failure, systolic, due to idiopathic cardiomyopathy Hypertension Obesity Proteinuria Sciatica History of shock History of Respiratory arrest Surgical: ICD placement Allergies Coded Allergies: Cat Dander (Verified Allergy, Intermediate, RESPIRATORY SX, 08/02/16) Dust (Verified Allergy, Intermediate, ASTHMA SYMPTOMS, 08/02/16) Heparin (Verified Allergy, Intermediate, GI SYMPTOMS, 08/02/16) Uncoded Allergies: CIGARETTE SMOKE (Allergy, Unknown, SOB/COUGH, 08/02/16) WEATHER CHANGES (Allergy, Unknown, GETS SICK, 08/02/16) Inpatient Medications Current Inpatient Medications Medications (Trade) Dose Ordered Sig/Niki Route Start Time Stop Time Status Last Admin Dose Admin Aspirin (Ecotrin Tab) 81 mg DAILY PO 08/02/16 09:00 09/01/16 08:59 08/02/16 10:57 81 MG Cyclobenzaprine HCl (Flexeril Tab) 5 mg TID PO 08/02/16 09:00 09/01/16 08:59 08/02/16 13:58 5 MG Hydralazine HCl (Apresoline Tab) 50 mg TID PO 08/02/16 09:00 09/01/16 08:59 08/02/16 13:55 50 MG Insulin Glargine (Lantus Solostar Pen) 35 unit QPM SC 08/02/16 21:00 09/01/16 20:59 Isosorbide Dinitrate (Isordil Tab) 20 mg BID@0700,1200 PO 08/02/16 12:00 09/01/16 11:59 08/02/16 13:55 20 MG Metolazone (Zaroxolyn Tab) 5 mg DAILY PO 08/02/16 09:00 09/01/16 08:59 08/02/16 10:59 5 MG Spironolactone (Aldactone Tab) 25 mg DAILY@0930 PO 08/02/16 09:30 09/01/16 09:29 08/02/16 11:48 25 MG Torsemide (Demadex Tab) 20 mg DAILY@1700 PO 08/02/16 17:00 09/01/16 16:59 Torsemide (Demadex Tab) 100 mg QAM PO 08/02/16 09:00 09/01/16 08:59 08/02/16 10:59 100 MG Hydralazine HCl (HydrALAZINE INJ) 10 mg Q6 PRN IM 08/02/16 07:15 09/01/16 07:14 Azithromycin (Zithromax Tab) 250 mg DAILY PO 08/02/16 10:00 08/09/16 09:59 08/02/16 11:48 250 MG Tobramycin Sulfate (Tobrex Oph Soln) 1 drops DAILY OPL 08/02/16 09:00 08/12/16 08:59 08/02/16 10:58 1 DROPS Insulin Aspart (novoLOG ASPART) SLIDING SCALE If C... ACHS SC 08/02/16 11:00 09/01/16 10:59 08/02/16 13:57 2 UNITS Glucose (Glucose 40% Gel) 15-30 GRAMS 15 GRAMS... UD PRN PO 08/02/16 08:45 09/01/16 08:44 Glucose (Glucose Chew Tab) 4-8 Tablets 4 Tabl... UD PRN PO 08/02/16 08:45 09/01/16 08:44 Dextrose (Dextrose 50% 50ML Syringe) 25-50ML OF 50% DW IV FOR... UD PRN IV 08/02/16 08:45 09/01/16 08:44 Glucagon (Glucagon Inj) 1 mg UD PRN SQ 08/02/16 08:45 09/01/16 08:44 Acetaminophen/ Hydrocodone Bitart ([place] 5/325 Tab) 1 tab Q8 PRN PO 08/02/16 08:45 08/16/16 08:44 08/02/16 11:11 1 TAB Albuterol/ Ipratropium (Duoneb) 3 ml Q4R PRN INH 08/02/16 08:45 09/01/16 08:44 Guaifenesin (Organidin Nr Tab) 200 mg Q8 PRN PO 08/02/16 08:45 09/01/16 08:44 Sevelamer HCl (Renvela) 800 mg AC PO 08/02/16 16:15 09/01/16 16:14 Clonidine HCl (Catapres Tab) 0.1 mg Q6H PRN PO 08/02/16 12:00 09/01/16 11:59 Nitroglycerin (Nitroglycerin 2% Oint) 1 inch Q6 EXT 08/02/16 13:00 09/01/16 12:59 08/02/16 13:58 1 INCH Miscellaneous Information (Consult Glycemic Management Pharmacy) 1 ea UD PRN N/A 08/02/16 14:11 09/01/16 14:10 Metoprolol Succinate (Toprol Xl Tab) 12.5 mg BID PO 08/02/16 21:00 09/01/16 20:59 Family History Patient reports no known family medical history. Social History Smoking Status: Former Smoker Marital Status: single Occupation: unemployed Review of Systems A complete review of systems was performed. Pertinent positives are noted above. All other systems are negative. Physical Exam Date Time Temp Pulse Resp B/P (MAP) Pulse Ox O2 Delivery O2 Flow Rate FiO2 08/02/16 16:00 Room Air 08/02/16 15:01 36.8 85 19 160/88 (112) 92 Room Air 08/02/16 12:00 Room Air 08/02/16 11:39 36.7 86 16 166/103 (124) 94 Room Air 08/02/16 07:58 36.6 85 18 166/103 (124) 98 Room Air 08/02/16 07:00 95 Room Air 08/02/16 06:55 36.8 88 18 168/113 95 08/02/16 06:30 88 18 174/111 95 Room Air 08/02/16 05:42 95 Room Air 08/02/16 05:41 86 08/02/16 05:28 36.8 87 24 157/99 96 Room Air General Appearance: WD/WN, no apparent distress Head: normocephalic, atraumatic Eyes: normal inspection, sclerae normal ENT: normal ENT inspection, pharynx normal Neck: supple, + JVD Respiratory/Chest: lungs clear, no respiratory distress, no accessory muscle use Cardiovascular: regular rate, rhythm, no gallop, + systolic murmur, + pertinent finding (no rub appreciated) Abdomen/GI: non tender, soft Extremities/Musculoskelatal: normal inspection, no pedal edema Neurologic/Psych: alert, oriented x 3 Skin: normal color Laboratory Results Last 24 Hours Test 08/02/16 05:35 08/02/16 11:18 08/02/16 11:53 08/02/16 16:12 White Blood Count 12.64 K/uL Red Blood Count 3.74 M/uL Hemoglobin 10.8 g/dL Hematocrit 33.4 % Mean Corpuscular Volume 89.3 fL Mean Corpuscular Hemoglobin 28.9 pg Mean Corpuscular Hemoglobin Concent 32.3 g/dl Platelet Count 282 K/uL Mean Platelet Volume 11.0 fL Neutrophils (%) (Auto) 71.0 % Lymphocytes (%) (Auto) 10.3 % Monocytes (%) (Auto) 15.3 % Eosinophils (%) (Auto) 2.6 % Basophils (%) (Auto) 0.6 % Neutrophils # (Auto) 8.97 K/uL Lymphocytes # (Auto) 1.30 K/uL Monocytes # (Auto) 1.94 K/uL Eosinophils # (Auto) 0.33 K/uL Basophils # (Auto) 0.07 K/uL RDW Standard Deviation 48.7 fL RDW Coefficient of Variation 15.0 % Immature Granulocyte % (Auto) 0.2 % Immature Granulocyte # (Auto) 0.03 K/uL Red Blood Cell Morphology Unremarkable Prothrombin Time 12.5 SECONDS Prothromb Time International Ratio 1.2 Sodium Level 138 mmol/L Potassium Level 4.3 mmol/L Chloride Level 100 mmol/L Carbon Dioxide Level 23 mmol/L Anion Gap 15.0 mmol/L Blood Urea Nitrogen 178 mg/dl Creatinine 8.20 mg/dl Est Creatinine Clear Calc Drug Dose 15.3 ml/min Estimated GFR () 8.4 Estimated GFR (Non- 7.2 BUN/Creatinine Ratio 21.7 Random Glucose 144 mg/dl Calcium Level 9.9 mg/dl Magnesium Level 2.5 mg/dl Total Bilirubin 1.0 mg/dl Aspartate Amino Transf (AST/SGOT) 18 U/L Alanine Aminotransferase (ALT/SGPT) 20 U/L Alkaline Phosphatase 194 U/L Total Creatine Kinase 177 U/L Creatine Kinase MB 21.8 ng/ml 19.1 ng/ml Creatine Kinase MB Ratio 12.3 Troponin I 0.230 ng/ml 0.218 ng/ml Total Protein 8.7 gm/dl Albumin 2.9 gm/dl Globulin 5.8 gm/dl Albumin/Globulin Ratio 0.5 Estimated Average Glucose 186 mg/dl Hemoglobin A1c 8.1 % Bedside Glucose 128 mg/dl 111 mg/dl Impression (1) CKD (chronic kidney disease), stage IV (2) Chest pain (3) Sciatica (4) Anemia (5) Idiopathic cardiomyopathy Cliff is a 41-year-old male with idiopathic cardiomyopathy, history of ventricular arrhythmia, hypertension, diabetes mellitus, and chronic kidney disease class V A3. Serum creatinine 8 milligram/deciliter with a protein to creatinine ratio previously documented at 5000 milligram/gram. Metabolic profile is otherwise currently acceptable. Presentation not consistent with pericarditis or significant uremic signs or symptoms to necessitate emergent dialysis. He is interested in peritoneal dialysis. If necessary, he is aware that we would expedite tunneled hemodialysis catheter placement while inpatient. Unfortunately, I spoke with Dr. Encarnacion today and he does not have upcoming availability to expedite PD catheter placement. At this time, cardiac evaluation for chest pain is being completed. Volume status and blood pressure can be optimized. Pain control may help with management of blood pressure. Response to nitrate therapy will also be monitored. We will repeat a metabolic profile in the AM. Earlier this week, I requested to establish care with Antony Richard DO in [place]. Dr. Richard may be able to provide osteopathic treatments that could replace care previously provided by a chiropractor in [facility]. The patient reported significant benefit for management of sciatica with these treatments. Recommendations -- NPO after midnight -- Increase Torsemide as needed to encourage a net negative fluid balance -- Check hepatitis profile -- TTE pending -- Repeat metabolic profile in AM -- Check hepatitis profile -- Renal diet
--- NOTE | 2016-08-02 17:16 | ECHOCARDIOGRAM REPORT ---
*NOTICE TO RECEIVING [employer]EN [employer]Y AGENCY This information is strictly Confidential and protected under [place] law. [place] law prohibits you from making any further disclosure of this information unless further disclosure is expressly permitted by the written consent of the person to whom it pertains or is authorized by law. A general authorization for the release of medical or other information is not sufficient for this purpose. Hospital accepts no responsibility if the information is made available to any other person, INCLUDING THE PATIENT. Interpretation Summary * Name: BO DEGROOT Study Date: 08/02/2016 02:12 PM BP: 160/88 mmHg * Patient Location: C.2T\S\S242\S\1 HR: 85 * : 1975 (M/d/yyyy) Gender: Male Height: 75 in * Age: 41 yrs Ethnicity: CA Weight: 234 lb * Ordering Physician: George Gregory * Referring Physician: Self, Referred * Performed By: Flores Quinn RDCS * * Reason For Study: ELEVATED CARDIAC MARKERS * BSA: 2.3 m2 * -- Conclusions -- * The left ventricle is mildly dilated. * There is severe concentric left ventricular hypertrophy. * There is severe global hypokinesis of the left ventricle. * Ejection Fraction = 20-25%. * Diastolic dysfunction, Grade III (restrictive pattern), consistent with markedly increased left atrial pressure. * Aortic valve sclerosis moderate, without significant aortic valvular stenosis. * There is trace mitral regurgitation. * There is mild to moderate tricuspid regurgitation. * Right ventricular systolic pressure is elevated at 40-50mmHg. Procedure Details * A contrast injection of Definity was performed to improve assessment of LV function. * Contrast was injected into an intravenous site in the left arm. * One vial of Definity ultrasound contrast was diluted in normal saline to a total volume of 10 ml. A total of '2' ml of solution was administered during imaging. * Lot # [id number] of Definity utilized for procedure. * Expiration date AUG 28. * The attending nurse who injected the contrast agent was ARIEL OLIVA RN. * A complete two-dimensional transthoracic echocardiogram was performed (2D, M-mode, Doppler and color flow Doppler). Left Ventricle * The left ventricle is mildly dilated. * There is severe concentric left ventricular hypertrophy. * Ejection Fraction = 20-25%. * There is severe global hypokinesis of the left ventricle. Right Ventricle * The right ventricle is normal in size and function. * There is a pacemaker lead in the right ventricle. Atria * The left atrium is severely dilated. * Right atrial size is normal. * No ASD detected; PFO is not assessed. Mitral Valve * The mitral valve is normal. * There is no mitral valve stenosis. * There is trace mitral regurgitation. Tricuspid Valve * The tricuspid valve anatomy is normal. * There is no tricuspid stenosis. * There is mild to moderate tricuspid regurgitation. * Right ventricular systolic pressure is elevated at 40-50mmHg. Aortic Valve * The aortic valve is trileaflet. * Aortic valve sclerosis moderate, without significant aortic valvular stenosis. * No aortic regurgitation is present. Pulmonic Valve * The pulmonic valve is not well visualized. Great Vessels * The aortic root is normal size. Pericardium/Pleural * There is no pericardial effusion. Left Ventricular Diastolic Function * Diastolic dysfunction, Grade III (restrictive pattern), consistent with markedly increased left atrial pressure. MMode 2D Measurements and Calculations IVSd 1.6 cm IVSs 2.0 cm LVIDd 5.1 cm LVIDs 4.6 cm LVPWd 1.9 cm LVPWs 2.2 cm IVS/LVPW 0.84 FS 10.5 % EDV(Teich) 125.6 ml ESV(Teich) 97.0 ml EF(Teich) 22.8 % EDV(cubed) 135.1 ml ESV(cubed) 96.9 ml EF(cubed) 28.3 % % IVS thick 24.6 % % LVPW thick 17.6 % LV mass(C)d 420.6 grams LV mass(C)dI 179.4 grams/m\S\2 LV mass(C)s 487.5 grams LV mass(C)sI 207.9 grams/m\S\2 SV(Teich) 28.6 ml SI(Teich) 12.2 ml/m\S\2 SV(cubed) 38.3 ml SI(cubed) 16.3 ml/m\S\2 Ao root diam 3.2 cm Ao root area 8.3 cm\S\2 LA dimension 5.7 cm LA/Ao 1.8 LVAd ap4 44.2 cm\S\2 LVLd ap4 10.0 cm EDV(MOD-sp4) 163.6 ml EDV(sp4-el) 166.5 ml LVAs ap4 37.0 cm\S\2 LVLs ap4 9.6 cm ESV(MOD-sp4) 121.3 ml ESV(sp4-el) 120.6 ml EF(MOD-sp4) 25.8 % EF(sp4-el) 27.6 % LVAd ap2 48.1 cm\S\2 LVLd ap2 10.5 cm EDV(MOD-sp2) 184.4 ml EDV(sp2-el) 186.7 ml LVAs ap2 38.8 cm\S\2 LVLs ap2 9.7 cm ESV(MOD-sp2) 130.6 ml ESV(sp2-el) 131.8 ml EF(MOD-sp2) 29.2 % EF(sp2-el) 29.4 % LVLd %diff 5.3 % EDV(MOD-bp) 178.5 ml LVLs %diff 0.75 % ESV(MOD-bp) 126.7 ml EF(MOD-bp) 29.0 % SV(MOD-sp4) 42.3 ml SI(MOD-sp4) 18.0 ml/m\S\2 SV(MOD-sp2) 53.9 ml SI(MOD-sp2) 23.0 ml/m\S\2 SV(MOD-bp) 51.8 ml SI(MOD-bp) 22.1 ml/m\S\2 SV(sp4-el) 45.9 ml SI(sp4-el) 19.6 ml/m\S\2 SV(sp2-el) 54.9 ml SI(sp2-el) 23.4 ml/m\S\2 Doppler Measurements and Calculations MV E max arie 123.0 cm/sec MV dec time 0.13 sec Ao V2 max 105.7 cm/sec Ao max PG 4.5 mmHg Ao max PG (full) 2.4 mmHg LV V1 max PG 2.0 mmHg LV V1 max 71.2 cm/sec TR max arie 321.2 cm/sec
[2016-08-02] MEDS: RENVELA 800 MG PO SCH (17:44)
[2016-08-02 18:42] VITALS: BP 155/91; PULSE 82; TEMP 36.8; O2SAT 96
[2016-08-02 18:42] LABS: URINE APPEARANCE CLEAR (CLEAR); URINE BILIRUBIN NEG (NEG); URINE COLOR YELLOW; URINE EPITHELIAL CELL AUTO 0-5 /lpf (0-5); URINE NITRITE NEG (NEG); URINE PH 5.5 (4.5-7.5); URINE SPECIFIC GRAVITY 1.014 (1.000-1.030); UROBILINOGEN NEG (NEG)
[2016-08-02 18:43] LABS: MANUAL MICROSCOPIC REQUIRED? NO; REVIEW REQ? NO
[2016-08-02] MEDS: METOPROLOL SUCC 25MG EXT REL TAB PO SCH (19:41)
[2016-08-02] MEDS ORDERED: PIPERACILL/TAZOBAC CONSULT ACTIVE PRN (20:15)
[2016-08-02] MEDS ORDERED: PIPERACILL/TAZOBAC IV 3.375 GM in DEXTROSE 5% 100ML IV ONE (20:30)
[2016-08-02] MEDS ORDERED: INSULIN GLARGINE SOLOSTAR 100 UNITS/ML 3 ML PEN SC SCH (21:00)
[2016-08-02 23:16] VITALS: BP 156/95; PULSE 78; TEMP 37; O2SAT 94
[2016-08-03] VITALS (9 sets, daily range): BP systolic 144–166; BP diastolic 83–100; PULSE 71–75; TEMP 36.3–37; O2SAT 94–99; BMI 29.0
--- NOTE | 2016-08-03 00:39 | SURGICAL CONSULTATION ---
DATE OF CONSULTATION: 08/02/2016 HISTORY OF PRESENT ILLNESS: I have been asked by Dr. Gregory to see this 41-year-old male, who was admitted with a complaint of chest pain that was located below the nipple area on the left. It was sharp in character and radiated to his back. Has a complain of shoulder pain and right wrist pain and numbness between the fourth and fifth digits. He was also found to have an open wound measuring 3-4 mm on his left buttock just above the thigh crease posteriorly that he stated had been there for about 2.5 months. It has been draining, but has decreased in size to this point. There is no pain. He has not had any fever or chills. He has never had an ulcer in this area before. He has no history of Crohn's disease. PAST MEDICAL HISTORY: Includes, AFib, cardiomyopathy, decreased ejection fraction of 26%, diabetes, hypertension, stage V kidney disease and is going to be evaluated for fistula placement for dialysis. PAST SURGICAL HISTORY: No abdominal or buttocks procedures. MEDICATIONS AT HOME: Included, aspirin, Zithromax Flexeril, Apresoline, NovoLog, Lantus, Isordil, Zaroxolyn, Renvela, Aldactone, Tobrex, Demadex. ALLERGIES: HEPARIN AND SOME ENVIRONMENTAL ALLERGIES. PHYSICAL EXAMINATION: GENERAL: Reveals a well-developed, well-nourished male, who appears in no acute distress. VITAL SIGNS: Blood pressure 160/88, heart rate 85, respirations 19, temperature 36.8, pulse oximetry 92% on room air. HEENT: Reveals the sclerae to be anicteric. Mucous membranes are moist. NECK: Supple. BACK: Has no spinal or CVA tenderness. Examination of the buttock show a 3-4 mm opening through which a quarter inch piece of gauze is protruding that had been placed by the wound care team. There is no induration in that area. There is no palpable abscess cavity. There is no tenderness or erythema. LABORATORY DATA: WBC 12.64, H&H is 10.8 and 33.4, platelet count 282,000. Sodium 138, potassium 4.3, chloride 100, CO2 23, BUN 178, creatinine 8.2, glucose 144. Total bilirubin 1.0, AST 18, ALT 20, alkaline phosphatase 194. Troponin I is 0.230. ASSESSMENT AND PLAN: This patient has a buttock wound that is approximately 2 cm deep, but there is no induration. There is no erythema. I would use local management with daily irrigation and packing loosely. I do not feel there is any need for surgical exploration at this time. If the area becomes more indurated or if there seems to appear a pocket, we can reevaluate. This does not appear to be a fistulous opening. Thank you for allowing me to see this patient and participate in his care. CODEY
[2016-08-03] MEDS: PIPERACILL/TAZOBAC IV 3.375 GM in DEXTROSE 5% 100ML IV SCH ×2 (03:16→16:38)
[2016-08-03] MEDS: NITROGLYCERIN OINT 2% 1GM PACKET EXT SCH (04:59)
[2016-08-03] MEDS: RENVELA 800 MG PO SCH ×3 (05:45→16:39)
[2016-08-03] MEDS: ISOSORBIDE DINITRATE 20 MG TAB PO SCH ×2 (05:46→12:16)
[2016-08-03 05:52] LABS: HEMATOCRIT 32.6 % (42-52); MEAN CELL VOLUME 89.6 fL (80-100); MEAN CORPUSCULAR HEMOGLOBIN 29.7 pg (25-34); MEAN CORPUSCULAR HGB CONC 33.1 g/dl (32-36); MEAN PLATELET VOLUME 11.7 fL (7.4-10.4); PLATELET COUNT 254 K/uL (130-400); RED BLOOD COUNT 3.64 M/uL (4.7-6.1)
[2016-08-03 06:41] LABS: CREATININE 8.5 mg/dl (0.60-1.40); MAGNESIUM 2.5 mg/dl (1.8-2.4); POTASSIUM 4.3 mmol/L (3.5-5.1)
[2016-08-03 06:48] LABS: BUN/CREATININE RATIO 21.1 (10-20)
[2016-08-03] MEDS: INSULIN ASPART 100 UNITS/ML 3 ML PEN SC SCH ×4 (07:00→20:54)
[2016-08-03] MEDS: TOBRAMYCIN SULF 0.3% OP SOLN 5 ML BTL OPL SCH (08:23)
[2016-08-03] MEDS: METOLAZONE 5 MG TAB PO SCH (08:23)
[2016-08-03] MEDS: CYCLOBENZAPRINE HCL 10 MG TAB PO SCH ×3 (08:24→20:53)
[2016-08-03] MEDS: AZITHROMYCIN 250 MG TAB PO SCH (08:24)
[2016-08-03] MEDS: ASPIRIN 81 MG ECTAB PO SCH (08:24)
[2016-08-03] MEDS: METOPROLOL SUCC 25MG EXT REL TAB PO SCH ×2 (08:25→20:54)
--- NOTE | 2016-08-03 08:56 | Surgery Progress Note ---
Surgery Progress Note Date of Service Aug 03, 2016. Subjective Denies pain in perirectal area Objective Vital Signs: Date Time Temp Pulse Resp B/P (MAP) Pulse Ox O2 Delivery O2 Flow Rate FiO2 08/03/16 07:58 36.9 74 16 151/88 (109) 94 Room Air 08/03/16 05:05 37.0 75 18 157/94 (115) 98 Room Air 08/03/16 04:00 Room Air 08/02/16 23:59 Room Air 08/02/16 23:16 37.0 78 16 156/95 (115) 94 Room Air 08/02/16 20:00 Room Air 08/02/16 18:42 36.8 82 18 155/91 (112) 96 Room Air 08/02/16 16:00 Room Air 08/02/16 15:01 36.8 85 19 160/88 (112) 92 Room Air 08/02/16 12:00 Room Air 08/02/16 11:39 36.7 86 16 166/103 (124) 94 Room Air Laboratory Results: Results Past 24 Hours Test 08/02/16 11:18 08/02/16 11:53 08/02/16 16:12 08/02/16 17:17 Range/Units Estimated Average Glucose 186 mg/dl Hemoglobin A1c 8.1 4.5-5.6 % Creatine Kinase MB 19.1 16.3 0.5-3.6 ng/ml Creatine Kinase MB Ratio 0-3.0 Troponin I 0.218 0.231 0-0.045 ng/ml Bedside Glucose 128 111 70-99 mg/dl Test 08/02/16 18:00 08/02/16 19:38 08/03/16 05:33 08/03/16 06:53 Range/Units Urine Color YELLOW Urine Appearance CLEAR CLEAR Urine pH 5.5 4.5-7.5 Urine Specific [place] 1.014 1.000-1.030 Urine Protein 2+ NEG Urine Glucose (UA) NEG NEG Urine Ketones NEG NEG Urine Occult Blood NEG NEG Urine Nitrite NEG NEG Urine Bilirubin NEG NEG Urine Urobilinogen NEG NEG Urine Leukocyte Esterase NEG NEG Urine WBC (Auto) 1-5 0-5 /hpf Urine RBC (Auto) 0-4 0-4 /hpf Urine Hyaline Casts (Auto) 0 0-5 /lpf Urine Epithelial Cells (Auto) 0-5 0-5 /lpf Urine Bacteria (Auto) NEG NEG Bedside Glucose 99 82 70-99 mg/dl White Blood Count 10.80 4.8-10.8 K/uL Red Blood Count 3.64 4.7-6.1 M/uL Hemoglobin 10.8 14.0-18.0 g/dL Hematocrit 32.6 42-52 % Mean Corpuscular Volume 89.6 80-100 fL Mean Corpuscular Hemoglobin 29.7 25-34 pg Mean Corpuscular Hemoglobin Concent 33.1 32-36 g/dl RDW Standard Deviation 48.6 36.4-46.3 fL RDW Coefficient of Variation 14.9 11.5-14.5 % Platelet Count 254 130-400 K/uL Mean Platelet Volume 11.7 7.4-10.4 fL Sodium Level 137 136-145 mmol/L Potassium Level 4.3 3.5-5.1 mmol/L Chloride Level 97 98-107 mmol/L Carbon Dioxide Level 23 21-32 mmol/L Anion Gap 17.0 3-11 mmol/L Blood Urea Nitrogen 183 7-18 mg/dl Creatinine 8.50 0.60-1.40 mg/dl Est Creatinine Clear Calc Drug Dose 14.7 ml/min Estimated GFR () 8.0 Estimated GFR (Non- 6.9 BUN/Creatinine Ratio 21.1 10-20 Random Glucose 71 70-99 mg/dl Calcium Level 10.0 8.5-10.1 mg/dl Phosphorus Level 8.0 2.5-4.9 mg/dl Magnesium Level 2.5 1.8-2.4 mg/dl Albumin 2.8 3.4-5.0 gm/dl Opening persists Some purulent drainage on dressing More consideration for possible fistula Would need tertiary center colorectal surgical evaluation especially considering other multiple comorbidities
[2016-08-03] MEDS ORDERED: ALBUTEROL HFA 8 GM INHALER INH PRN (09:00)
--- NOTE | 2016-08-03 09:17 | Progress Note ---
Medicine Progress Note Date & Time of Visit: Aug 03, 2016 at 09:07. Subjective patient seen resting in bed, comfortable states he had a good night occasional chest pain- pinch, but overall better denies dyspnea, palpitations, dizziness cough also improving, no sputum no abdominal pain nausea/vomiting, no problems with urination denies buttock pain, fever/chills no other symptoms eager for discharge Objective Last 8 Hrs Date Time Temp Pulse Resp B/P (MAP) Pulse Ox O2 Delivery O2 Flow Rate FiO2 08/03/16 07:58 36.9 74 16 151/88 (109) 94 Room Air 08/03/16 05:05 37.0 75 18 157/94 (115) 98 Room Air 08/03/16 04:00 Room Air Physical Exam: General- oriented x 3, not in distress, speaks in sentences with no effort Eyes-anicteric Neck- no JVD Lungs- clear breath sounds, no rales/wheezing bilaterally Heart- regular rhythm; no murmur, normal rate Abdomen- normal bowel sounds, soft, nontender Extremities- no pretibial edema, no calf tenderness; peripheral pulses intact right wrist- on the medial side, (+) small scabbed wound, some tenderness but no erythema/warmth Neuro- alert, oriented x 3; no gross focal neuro deficits Skin- warm & dry Laboratory Results: Last 24 Hours Test 08/02/16 11:18 08/02/16 11:53 08/02/16 16:12 08/02/16 17:17 Estimated Average Glucose 186 mg/dl Hemoglobin A1c 8.1 % Creatine Kinase MB 19.1 ng/ml 16.3 ng/ml Creatine Kinase MB Ratio Troponin I 0.218 ng/ml 0.231 ng/ml Bedside Glucose 128 mg/dl 111 mg/dl Test 08/02/16 18:00 08/02/16 19:38 08/03/16 05:33 08/03/16 06:53 Urine Color YELLOW Urine Appearance CLEAR Urine pH 5.5 Urine Specific [place] 1.014 Urine Protein 2+ Urine Glucose (UA) NEG Urine Ketones NEG Urine Occult Blood NEG Urine Nitrite NEG Urine Bilirubin NEG Urine Urobilinogen NEG Urine Leukocyte Esterase NEG Urine WBC (Auto) 1-5 /hpf Urine RBC (Auto) 0-4 /hpf Urine Hyaline Casts (Auto) 0 /lpf Urine Epithelial Cells (Auto) 0-5 /lpf Urine Bacteria (Auto) NEG Bedside Glucose 99 mg/dl 82 mg/dl White Blood Count 10.80 K/uL Red Blood Count 3.64 M/uL Hemoglobin 10.8 g/dL Hematocrit 32.6 % Mean Corpuscular Volume 89.6 fL Mean Corpuscular Hemoglobin 29.7 pg Mean Corpuscular Hemoglobin Concent 33.1 g/dl RDW Standard Deviation 48.6 fL RDW Coefficient of Variation 14.9 % Platelet Count 254 K/uL Mean Platelet Volume 11.7 fL Sodium Level 137 mmol/L Potassium Level 4.3 mmol/L Chloride Level 97 mmol/L Carbon Dioxide Level 23 mmol/L Anion Gap 17.0 mmol/L Blood Urea Nitrogen 183 mg/dl Creatinine 8.50 mg/dl Est Creatinine Clear Calc Drug Dose 14.7 ml/min Estimated GFR () 8.0 Estimated GFR (Non- 6.9 BUN/Creatinine Ratio 21.1 Random Glucose 71 mg/dl Calcium Level 10.0 mg/dl Phosphorus Level 8.0 mg/dl Magnesium Level 2.5 mg/dl Albumin 2.8 gm/dl Assessment & Plan 41 year old male with history of DM Type 2, HTN, CAD, Cardiomyopathy, CKD 5 presenting with chest pain. CHEST PAIN HISTORY OF CAD, CARDIOMYOPATHY Significant risks factor such as DM, HTN, CKD stage 5, Cardiomyopathy -- cardiac markers x stable -- ekg no signs of acute ischemia -- echo: -- Conclusions -- * The left ventricle is mildly dilated. * There is severe concentric left ventricular hypertrophy. * There is severe global hypokinesis of the left ventricle. * Ejection Fraction = 20-25%. * Diastolic dysfunction, Grade III (restrictive pattern), consistent with markedly increased left atrial pressure. * Aortic valve sclerosis moderate, without significant aortic valvular stenosis. * There is trace mitral regurgitation. * There is mild to moderate tricuspid regurgitation. * Right ventricular systolic pressure is elevated at 40-50mmHg. -- Cardiology consulted, appreciate the input Metoprolol, Nitropaste added for BP control BP improving -- on Aspirin, Imdur CARDIOMYOPATHY Hx ICD placement -- echo as noted above Defibrillator interrogated: unremarkable per Accident Report Clerk -- euvolemic -- continue Metolazone, Spironolactone, Torsemide CKD STAGE 5 Nephrology consulted- Dr. Wild possible HD cath placement no overt uremia symptoms HTN Metoprolol, Nitropaste added for BP control BP improving on Hydralazine, Imdur Cardiology consulted DM TYPE 2 HBA1C 8.2 on 05/28 Continue Lantus Insulin coverage LEFT WOUND BUTTOCK wound care consulted , reports purulent drainage yesterday Gen surg consulted, no interventions at this time, will need local wound care started on Zosyn, also on Azithromycin (continued from outpatient for bronchitis ) -- wound cultures pending -- denies buttock pain -- on Zosyn Day 2 ID consulted BRONCHITIS cough improving, no dyspnea continue Zithromax for 2 more days Duoneb treatment PRN, Albuterol PRN BACK PAIN pain medication prn continue cyclobenzaprine RIGHT WRIST PAIN possible carpal tunnel syndrome xray wrist: negative trial of wrist splint outpatient follow up DVT PX SCDs patient reports previous episode of nausea, sweats with heparin- declining heparin stating he does not want any more side effects explained that this is for DVT prevention CODE STATUS FULL CODE Dispo pending Current Inpatient Medications: Current Inpatient Medications Medications (Trade) Dose Ordered Sig/Niki Route Start Time Stop Time Status Last Admin Dose Admin Aspirin (Ecotrin Tab) 81 mg DAILY PO 08/02/16 09:00 09/01/16 08:59 08/03/16 08:24 81 MG Cyclobenzaprine HCl (Flexeril Tab) 5 mg TID PO 08/02/16 09:00 09/01/16 08:59 08/03/16 08:24 5 MG Hydralazine HCl (Apresoline Tab) 50 mg TID PO 08/02/16 09:00 09/01/16 08:59 08/03/16 08:23 50 MG Insulin Glargine (Lantus Solostar Pen) 35 unit QPM SC 08/02/16 21:00 09/01/16 20:59 08/02/16 20:19 35 UNIT Isosorbide Dinitrate (Isordil Tab) 20 mg BID@0700,1200 PO 08/02/16 12:00 09/01/16 11:59 08/03/16 05:46 20 MG Metolazone (Zaroxolyn Tab) 5 mg DAILY PO 08/02/16 09:00 09/01/16 08:59 08/03/16 08:23 5 MG Spironolactone (Aldactone Tab) 25 mg DAILY@0930 PO 08/02/16 09:30 09/01/16 09:29 08/02/16 11:48 25 MG Torsemide (Demadex Tab) 20 mg DAILY@1700 PO 08/02/16 17:00 09/01/16 16:59 08/02/16 17:43 20 MG Torsemide (Demadex Tab) 100 mg QAM PO 08/02/16 09:00 09/01/16 08:59 08/02/16 10:59 100 MG Hydralazine HCl (HydrALAZINE INJ) 10 mg Q6 PRN IM 08/02/16 07:15 09/01/16 07:14 Azithromycin (Zithromax Tab) 250 mg DAILY PO 08/02/16 10:00 08/09/16 09:59 08/03/16 08:24 250 MG Tobramycin Sulfate (Tobrex Oph Soln) 1 drops DAILY OPL 08/02/16 09:00 08/12/16 08:59 08/03/16 08:23 1 DROPS Insulin Aspart (novoLOG ASPART) SLIDING SCALE If C... ACHS SC 08/02/16 11:00 09/01/16 10:59 08/02/16 17:47 5 UNITS Glucose (Glucose 40% Gel) 15-30 GRAMS 15 GRAMS... UD PRN PO 08/02/16 08:45 09/01/16 08:44 Glucose (Glucose Chew Tab) 4-8 Tablets 4 Tabl... UD PRN PO 08/02/16 08:45 09/01/16 08:44 Dextrose (Dextrose 50% 50ML Syringe) 25-50ML OF 50% DW IV FOR... UD PRN IV 08/02/16 08:45 09/01/16 08:44 Glucagon (Glucagon Inj) 1 mg UD PRN SQ 08/02/16 08:45 09/01/16 08:44 Acetaminophen/ Hydrocodone Bitart ([place] 5/325 Tab) 1 tab Q8 PRN PO 08/02/16 08:45 08/16/16 08:44 08/02/16 11:11 1 TAB Albuterol/ Ipratropium (Duoneb) 3 ml Q4R PRN INH 08/02/16 08:45 09/01/16 08:44 Guaifenesin (Organidin Nr Tab) 200 mg Q8 PRN PO 08/02/16 08:45 09/01/16 08:44 Sevelamer HCl (Renvela) 800 mg AC PO 08/02/16 16:15 09/01/16 16:14 08/03/16 05:45 800 MG Clonidine HCl (Catapres Tab) 0.1 mg Q6H PRN PO 08/02/16 12:00 09/01/16 11:59 Nitroglycerin (Nitroglycerin 2% Oint) 1 inch Q6 EXT 08/02/16 13:00 09/01/16 12:59 08/02/16 17:45 1 INCH Miscellaneous Information (Consult Glycemic Management Pharmacy) 1 ea UD PRN N/A 08/02/16 14:11 09/01/16 14:10 Metoprolol Succinate (Toprol Xl Tab) 12.5 mg BID PO 08/02/16 21:00 09/01/16 20:59 08/03/16 08:25 12.5 MG Piperacillin Sod/ Tazobactam Sod (Consult) 1 ea UD PRN N/A 08/02/16 20:15 09/01/16 20:14 Piperacillin Sod/ Tazobactam Sod 3.375 gm/Dextrose 115 ml @ 28.75 mls/ hr Q12H IV 08/03/16 04:00 08/13/16 03:59 08/03/16 03:16 28.75 MLS/HR
[2016-08-03] MEDS: SPIRONOLACTONE 25 MG TAB PO SCH (10:30)
[2016-08-03] MEDS: TORSEMIDE 20 MG TAB PO SCH ×2 (10:52→16:38)
--- NOTE | 2016-08-03 11:02 | CARDIOLOGY PROGRESS NOTE ---
DATE: 08/03/2016 DATE: 08/03/2016. SUBJECTIVE: The patient seen and examined. Chart, medications, telemetry reviewed. Blood pressure slightly lower this morning. He notes headache and nausea from nitro paste, this was discontinued. Heart rates have been tolerable on current dosing of metoprolol. Notes no tachypalpitations, syncope or near syncope and is anticipating dialysis, though hoped to begin peritoneal rather than hemodialysis. Pacer defibrillator checked this morning and finds it functioning appropriately. Device was placed last fall. Excellent battery life. OBJECTIVE: VITAL SIGNS: Heart rate 74, blood pressure is 151/88. NECK: Thin. There is no jugular venous distention, no carotid bruits. LUNGS: Clear. CARDIOVASCULAR EXAMINATION: Regular. No S3 gallop. There is apical heave. There is a grade 1/6 systolic murmur at the apex. Pacer defibrillator sites without tenderness. EXTREMITIES: Without cyanosis or clubbing. There are chronic stasis changes with trace pedal edema. LABORATORY STUDIES THIS MORNING: Creatinine is 8.5, albumin is 2.8. White cell count 10.8, hemoglobin is 10.8. 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 PLAN: We will continue current dosing of medications. Will discontinue topical nitrates while continuing oral isosorbide and low dose metoprolol added to regimen. Further evaluation as per nephrology. No acute cardiac decline. Pacer defibrillator interrogation finds it functioning appropriately today with results scanned into chart.
[2016-08-03] MEDS: GLUCOSE 10 TABS/TUBE PO PRN (11:13)
--- NOTE | 2016-08-03 11:14 | Pharmacy Progress Note ---
Glycemic Control Progress Note Date of Service Aug 03, 2016. Scope Glycemic Pharmacist consulted for glycemic control to write orders per [facility] inpatient glycemic control protocol. Objective Accuchecks BSG (last 24hrs): Test 08/02/16 11:53 08/02/16 16:12 08/02/16 19:38 08/03/16 05:33 Bedside Glucose 128 mg/dl (70-99) 111 mg/dl (70-99) 99 mg/dl (70-99) Random Glucose 71 mg/dl (70-99) Test 08/03/16 06:53 Bedside Glucose 82 mg/dl (70-99) HbA1c: Test 08/02/16 11:18 Hemoglobin A1c 8.1 % (4.5-5.6) H Recent Pertinent Medications The patient is currently receiving: * Basal insulin: Lantus 35 units every 24 hours given at bedtime * Correctional Insulin: Novolog Correction per scale ACHS Goal Range: Low 110 mg/dL - High 150 mg/dL Correction Factor: 20 mg/dL/unit * Prandial insulin: Per carb ratio of 1 unit per 7 grams CHO consumed Outpatient Anti-Diabetic Meds Basal Insulin & Bolus Insulin Assessment & Plan ASSESSMENT: * See progress note from 08/02 for more background info, in short: * Pt receiving SQ basal bolus insulin regimen for hyperglycemia secondary to baseline DM,stress/infection, 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 This is less than outpatient dosing of 68-80units/day d/t NPO and controlled CHO intake hospital diet. * 35 units of basal insulin * 7 units of prandial/correctional insulin * BSGs ranging 82 - 144 mg/dl over the past 24hrs * Changes needed to insulin regimen: * AM Fasting BSG = 82 mg/dl. This is slightly below goal range for patient based on inpatient targets and co-morbidities. Therefore Basal insulin needs decreased. Current dosing is already decreased as compared to outpatient dosing but further decrease warranted for NPO status. * Post-prandial BSGs are in range therefore no changes needed to CF/CR. Pt with LOW BSG at 1200 today. No insulin given today d/t NPO and below goal range BSGs, but will empirically decrease CF/CR to prevent further hypoglycemia. * Total daily dose = 42 units. May need to evenly re-distribute regimen 50%:50 % basal:prandial to prevent hypo/hyperglycemia PLAN FOR INPATIENT GLYCEMIC CONTROL: * Basal insulin * Decrease Lantus from 35 to 30 units units SQ HS * Bolus insulin: loosen parameters slightly * NovoLog per scale ACHS or Q6hrs while NPO * Goal Range: Low 110 mg/dL - High 150 mg/dL * Correction Factor: 25 mg/dL/unit * Nutritional / Prandial insulin per carb ratio of 1 unit per 9 grams CHO consumed * Please note that the plan above was derived based on current level of insulin resistance and hospital stress. These recommendations are appropriate for inpatient admission only. Plan of care upon discharge will need to be reassessed to avoid potential outpatient hypo/hyperglycemia. Thank you.
--- NOTE | 2016-08-03 11:18 | Progress Note ---
Progress Note Date of Service Aug 03, 2016. Progress Note ID Consult Dictated #[id number] A/P: 1. Buttock wound, chronic -Can continue zosyn for now -Will need outpt wound care, would like to follow in [place] -Was on keflex captain cannery tender with + response, can place on keflex, renal dosing -Thank you
--- NOTE | 2016-08-03 11:48 | Surgery Consultation ---
Consultation Date of Service Aug 03, 2016. (Wen Peoples, FCO) Chief Complaint acute on chronic renal failure, need permcath (Wen Peoples PA-C) History of Present Illness The patient is a 41 year old male with complicated medical hx, including AICD placement, cardiomyopathy, DMII, HTN, chronic renal failure, seen in consultation today for insertion of TDC for HD. Pt admits fatigue. Denies MORSE, fever, chills, chest pain, SOB, abd pain, N/V, rest pain, claudication, other complaints. (Wen Peoples, FCO) Vitals Vital Signs Past 12 Hours Date Time Temp Pulse Resp B/P (MAP) Pulse Ox O2 Delivery O2 Flow Rate FiO2 08/03/16 11:14 36.8 72 16 156/91 (112) 97 08/03/16 11:09 36.9 74 16 151/88 94 Room Air 08/03/16 11:02 Room Air 08/03/16 07:58 36.9 74 16 151/88 (109) 94 Room Air 08/03/16 07:30 Room Air 08/03/16 05:05 37.0 75 18 157/94 (115) 98 Room Air 08/03/16 04:00 Room Air 08/02/16 23:59 Room Air (Wen Peoples, FCO) Allergies Coded Allergies: Cat Dander (Verified Allergy, Intermediate, RESPIRATORY SX, 08/02/16) Dust (Verified Allergy, Intermediate, ASTHMA SYMPTOMS, 08/02/16) Heparin (Verified Allergy, Intermediate, GI SYMPTOMS, 08/02/16) Uncoded Allergies: CIGARETTE SMOKE (Allergy, Unknown, SOB/COUGH, 08/02/16) WEATHER CHANGES (Allergy, Unknown, GETS SICK, 08/02/16) Home Medications Scheduled Aspirin (Aspirin Ec), 81 MG PO DAILY Azithromycin (Zithromax Z-Chetan), 1 PKT PO UD Cyclobenzaprine Hcl (Flexeril), 5 MG PO TID Hydralazine Hcl (Apresoline), 50 MG PO TID Insulin Aspart (Novolog Flexpen), UNITS SC AC Insulin Glargine (Lantus Solostar), 38 UNITS SC QPM Isosorbide Dinitrate (Isordil), 20 MG PO BID Metolazone (Zaroxolyn), 5 MG PO DAILY Sevelamer Carbonate (Renvela), 1 TAB PO AC Spironolactone (Aldactone), 25 MG PO DAILY Tobramycin Sulfate (Ophth) (Tobrex Oph Jessica), 1 DROPS OPL DAILY Torsemide (Demadex), 20 MG PO QPM Torsemide (Demadex), 100 MG PO QAM Scheduled PRN Albuterol Hfa (Ventolin Hfa), 2 PUFFS INH Q6H PRN for SOB/Wheezing Problem List Medical Problems: (1) A-fib (2) Anemia (3) Chest pain (4) Chest pain (5) CKD (chronic kidney disease), stage IV (6) Diabetes (7) Hypertension (8) Idiopathic cardiomyopathy (9) Sciatica (Wen Peoples, GLENDYC) Surgical / Medical History Hx Cardiac Surgery: Yes (pacemaker/ICD-2nd one (February 2004)) HX Other Surgery: Yes Past Medical/Surgical History: CHF, Diabetes, Heart Disease, Hypertension, Kidney Disease (Wen Peoples, GLENDYC) Family History Patient reports no known family medical history. (Wen Peoples, GLENDYC) Patient reports no known family medical history. (Tho Encarnacion M.D.) Social History Smoking Status: Former Smoker Hx Tobacco Use In Past Year?: No Hx Alcohol Use - Type & Amnt: No Hx Substance Use -Type & Amnt: No (Wen Peoples, GLENDYC) Review of Systems Constitutional: + malaise, + fatigue, No chills, No fever Skin: No change in color Eyes: No visual changes (chronic cataracts) ENMT: No sore throat Respiratory: No cough, No YANEZ, No hemoptysis, No short of breath Cardiovascular: No chest pain, No palpitations, No syncope, No edema, No intermittent claudication Gastrointestinal: No abdominal pain, No nausea, No vomiting Musculoskeletal: + back pain Neurologic: + lethargy, No dizziness, No numbness, No tingling (Wen Peoples, PA-C) Physical Exam Constitutional: General Apperance: well-nourished, well-developed Level of Distress: NAD, chronically ill Ambulation: ambulating normally Psychiatric: Mental Status: active & alert, normal mood, normal affect Orientation: oriented except where noted, to time, to place, to person Memory: recent memory normal, remote memory normal Head: normocephalic, atraumatic Eyes: EOM: EOMI ENMT: normal ENT inspection, hearing grossly normal Neck: supple, trachea midline Lungs: Respiratory effort: no dyspnea Auscultation: no rales/crackles, no rhonchi, decreased breath sounds Cardiovascular: Heart Auscultation: RRR, no rubs, no gallops Peripheral Pulses: Pulses: full and equal, in all extremities except if noted Bruits: none appreciated Carotid Pulse: normal on the left, normal on the right Brachial Pulses: normal on the left, normal on the right Radial Pulse: normal on the left, normal on the right Femoral Pulse: normal on the left, normal on the right Posterior Tibialis Pulse: decreased on the left, decreased on the right Dorsalis Pedis Pulse: decreased on the left, decreased on the right Abdomen: Bowel Sounds: normal Inspection & Palpation: soft, non-distended, no tenderness, guarding & rebound Musculoskeletal: normal strength (5/5 throughout), normal tone Extremities: Upper Right: no cyanosis, no edema, no varicosities Upper Left: no cyanosis, no edema, no varicosities Lower Right: no cyanosis, no edema, no varicosities Lower Left: no cyanosis, no edema, no varicosities Neurologic: Cranial Nerves: grossly intact Sensation: grossly intact (Wen Peoples, PA-C) Assessment and Plan ASSESSMENT and PLAN: Acute on chronic renal failure Pt for permcath insertion in OR today for HD. Procedure, risks, benefits and alternatives discussed with pt, he expresses understanding and agreement. AICD in R chest noted. Pt advised we would be happy to see in office to discuss AVF creation in near future. (Wen Peoples, PA-C) Patient was seen, examined, and chart reviewed. Agree with exam and treatment plan of the Vascular PA. I have discussed the risks options and benefits of the procedure with the patient. The patient understands the risks options and benefits and agrees to the procedure. (Tho Encarnacion M.D.)
--- NOTE | 2016-08-03 12:20 | INFECT. DISEASE CONSULTATION ---
DATE OF CONSULTATION: 08/03/2016 REQUESTING PHYSICIAN: Dr. Gregory. HISTORY OF PRESENT ILLNESS: This is a 41-year-old gentleman who was admitted to the hospital after he had chest pain that started the night before. He does have a significant cardiac history. He is being followed by cardiology. He does have a history of a left buttock wound which he states has been there for 2 months. He was following with physicians in the [facility] but recently moved to [place]. He was on antibiotics with Keflex for 30 days and just completed this 1 week ago. He states that he was to be on chronic antibiotics, but he had not established care and was to follow up with the wound care center in [place] today; however, he was admitted to the hospital. He denies any fevers or chills. He denies any pain in the area. He states the wound has overall improved significantly and is much smaller than when it was initially when he began antibiotics for this. He was tolerating antibiotics well. He denies any diarrhea, nausea or vomiting. He currently has no pain in the area but there is minimal drainage. He states that he would prefer to follow up with the wound center in [place] upon discharge as this will be closer to his house. He was started on Zosyn empirically yesterday. No cultures have been obtained. All remaining review of systems are reviewed and are unremarkable. He currently does not have chest pain on my examination. Of note, he was recently treated with Zithromax for bronchitis. He was restarted on azithromycin upon admission here. PAST MEDICAL HISTORY: Significant for AFib, diabetes, hypertension, chronic kidney disease, cardiomyopathy. The patient is undergoing outpatient workup to begin plans for dialysis. SURGICAL HISTORY: Significant for ICD placement. FAMILY HISTORY: Noncontributory. SOCIAL HISTORY: Significant for history of tobacco use. He denies any alcohol or drug use. ALLERGIES: HE IS ALLERGIC TO HEPARIN. CURRENT MEDICATIONS: Include albuterol, Zosyn, Lantus, Toprol-XL, Demadex, Renvela, Catapres, isosorbide, azithromycin, Aldactone, Ecotrin, Flexeril, hydralazine, Zaroxolyn, tobramycin eyedrops, Percocet, DuoNeb, guaifenesin. PHYSICAL EXAMINATION: VITAL SIGNS: He is afebrile, pulse 74, respiratory rate is 16, blood pressure is 151/88, oxygen saturation is 94-98% on room air. GENERAL: He is awake, alert and oriented x3. He is in no acute distress. HEENT: Mucous membranes are moist. Extraocular muscles are intact. HEART: Regular. LUNGS: Clear with poor inspiratory effort. ABDOMEN: Soft, nontender, nondistended. EXTREMITIES: There is no lower extremity edema. SKIN: Without rash. Examination of the left buttock ulcer reveals a pinpoint tunnel which does not appear to track. There is no surrounding warmth, erythema, induration. There is minimal serous drainage. A culture was obtained. There is no tenderness to palpation. LABORATORY STUDIES: CBC today reveals a white blood cell count of 10.8, hemoglobin 10.8, platelets are 254. Chemistry panel reveals sodium of 137, potassium 4.3, chloride 97, bicarbonate 23, BUN 183, creatinine is 8.5, glucose is 82. Urinalysis is unremarkable. Chest x-ray is unremarkable. ASSESSMENT AND PLAN: Buttock wound. I did not see any signs of infection at this time. He can be followed on Zosyn for now and can return to renal dose Keflex upon discharge from the hospital as he seems to be having appropriate response to this. I would recommend that he have continued followup at wound care center and he has expressed preference of going to [place] wound center as this will be closer to his home. Thank you for this consultation.
--- NOTE | 2016-08-03 12:58 | Procedure Note ---
Pre-Mod Sedation Assessment General Date of Moderate Sedation: Aug 03, 2016. Vital Signs: Vital Signs Past 12 Hours Date Time Temp Pulse Resp B/P (MAP) Pulse Ox O2 Delivery O2 Flow Rate FiO2 08/03/16 11:14 36.8 72 16 156/91 (112) 97 08/03/16 11:09 36.9 74 16 151/88 94 Room Air 08/03/16 11:02 Room Air 08/03/16 07:58 36.9 74 16 151/88 (109) 94 Room Air 08/03/16 07:30 Room Air 08/03/16 05:05 37.0 75 18 157/94 (115) 98 Room Air 08/03/16 04:00 Room Air Pre-Sedation Airway Assessment Oral Cavity: WNL Short Thick Neck: No Hx of Sleep Apnea: No Smoking Status: Former Smoker Mallampati Classification: Class I ASA Classification: Class IV Notes The planned sedation has been discussed with the patient and consent obtained. I have identified the patient, determined the appropriateness of sedation and have assessed the patient immediately prior to the procedure. All medicine(s) and interventions are by my order.
[2016-08-03] MEDS ORDERED: CEFAZOLIN IV 1,000 MG in DEXTROSE 5% 50ML 50 ML IV SCH (13:00)
[2016-08-03] MEDS ORDERED: CEFAZOLIN SOD 1000MG/55 ML D5W IV ONE (14:47)
[2016-08-03] MEDS ORDERED: HEPARIN SOD (PORCINE) 5000 UNIT/ML 1 ML VIAL ONE (15:03)
[2016-08-03] MEDS ORDERED: FENTANYL CITRATE INJ 50 MCG/1 ML 2 ML VIAL ONE (15:03)
[2016-08-03] MEDS ORDERED: MIDAZOLAM HCL 1 MG/ML 2ML VIAL ONE (15:04)
[2016-08-03] MEDS ORDERED: MIDAZOLAM HCL 1 MG/ML 2ML VIAL IV ONE ×2 (15:37→15:51)
[2016-08-03] MEDS ORDERED: FENTANYL CITRATE INJ 50 MCG/1 ML 2 ML VIAL IV ONE ×2 (15:37→15:51)
[2016-08-03] MEDS ORDERED: LIDOCAINE HCL 1% 20 ML VIAL SQ ONE (15:42)
--- NOTE | 2016-08-03 16:08 | [facility] Post Operative Brief Note ---
Immediate Operative Summary Operative Date Aug 03, 2016. Pre-Operative Diagnosis Acute Renal Failure Post-Operative Diagnosis Same Procedure(s) Performed Insertion of Perm Catheter, Left Internal Jugular Approach, Ultrasound Localization of Left Internal Jugular Vein, Fluoroscopy for positioning, Moderate Sedation from 1536 - [address] Encarnacion Jacquard Fixer Surgeon(s) Dr. Harp Estimated Blood Loss 5 Findings tip in distal SVC Specimens None Anesthesia Local with conscious sedation Complication(s) None Disposition
--- NOTE | 2016-08-03 16:35 | DIAGNOSTIC IMAGING REPORT ---
DATE OF PROCEDURE: 08/03/2016 PREOPERATIVE DIAGNOSIS: Acute on chronic renal failure requiring dialysis. POSTOPERATIVE DIAGNOSIS: Acute on chronic renal failure requiring dialysis. PROCEDURE: Placement of left tunneled IJ PermCath. SURGEON: Dr. Tho Encarnacion. MEAL ATTENDANT: Dr. Krystle Harp. ANESTHESIA: 28 minutes of conscious sedation plus local. ESTIMATED BLOOD LOSS: 5 mL. CONDITION: Stable. COMPLICATIONS: None. INDICATIONS: Mr. Cliff Tucker is a 41-year-old gentleman with history of type 2 diabetes, hypertension, ischemic cardiomyopathy status post AICD placement, acute on chronic renal failure. He has had worsening renal function and is now requiring dialysis. For this reason, he was recommended to undergo placement of a left tunneled IJ PermCath as his AICD is placed on the right side. The risks, benefits and alternatives were discussed with the patient and he consented to the procedure. DESCRIPTION OF PROCEDURE: The patient was taken to the [facility] OR and placed in the supine position. His left neck and chest were prepped and draped in the usual sterile fashion. Safety timeout was performed and the patient, procedure and sidedness were correctly identified. The patient was given conscious sedation. Ultrasound was used to identify the left internal jugular vein. Local anesthesia was used to anesthetize the skin overlying the vein. An 18-gauge access needle was used to puncture the vein under ultrasound guidance. Guidewire was inserted through the needle and placed into the right ventricle. Local anesthesia was used to anesthetize the skin underlying the left clavicle to create a tunnel for the catheter. A skin gerber was made in the infraclavicular region. The catheter was tunneled from the infraclavicular skin incision to the left IJ access site. Several dilators were placed over the wire to dilate the tract for the catheter. A peelaway sheath was placed over the wire and the wire removed. The catheter was placed through the peelaway sheath and into the SVC. There was some kinking of the catheter and guidewire was placed through the venous port to aid in positioning of the catheter. Catheter then appeared to be in good position and the wire was removed. Both ports easily aspirated and flushed. Again, this patient is ALLERGIC TO HEPARIN THEY CAUSE NAUSEA AND TACHYCARDIA, heparin was not instilled into either port of the catheter. Both ports were flushed copiously with normal saline. The catheter was sutured to the chest wall with nylon suture. The IJ access site was closed with a single interrupted Vicryl suture. Dermabond was applied over the IJ access site. A sterile dressing was applied. The patient was transferred to PACU in stable condition. He tolerated the procedure well and there were no immediate complications. Dr. Tho Encarnacion was present for the entire procedure. I, Dr. Encarnacion was present and scrubed for the entire procedure. [facility]
[2016-08-03 18:42] LABS: HEPATITIS B AB NEG
--- NOTE | 2016-08-03 18:46 | Nephrology Progress Note ---
Nephrology Progress Note Date of Service Aug 03, 2016. Chief Complaint Renal insufficiency Subjective Cliff was seen and evaluated in his hospital room this morning. Plan of care was discussed with Dr. Leroy, Dr. Encarnacion and Dr. Gregory. I also spoke with Dr. Barrios (assembler billiard table in [facility]). Unfortunately, we were not able to arrange PD catheter placement at this time. Ultimately, it was felt more comfortable transitioning from hemodialysis to PD. Cliff was agreeable to HD PermCath placement today. He would like to start dialysis near his home in [place]. Dr. Barrios confirmed that the patient would be able to transition to a home dialysis at [facility]. Review of Systems A complete review of systems was performed. Pertinent positives are noted above. All other systems are negative. Vital Signs Last 8 Hrs Date Time Temp Pulse Resp B/P (MAP) Pulse Ox O2 Delivery O2 Flow Rate FiO2 08/03/16 18:30 37.0 73 22 158/92 (114) 94 Room Air 08/03/16 17:30 36.9 73 22 166/100 (122) 97 Room Air 08/03/16 16:30 Room Air 08/03/16 16:30 36.4 72 16 156/87 (110) 94 Room Air 08/03/16 16:04 70 16 148/88 95 3 08/03/16 11:14 36.8 72 16 156/91 (112) 97 08/03/16 11:09 36.9 74 16 151/88 94 Room Air 08/03/16 11:02 Room Air I & O 24-Hour Column 08/04/16 08:00 Output Total 1100 ml Balance -1100 ml Last Recorded Weight Weight (Kilograms): 105.400 Physical Exam General Appearance: WD/WN, no apparent distress Head: normocephalic, atraumatic Eyes: normal inspection, sclerae normal ENT: normal ENT inspection, pharynx normal Neck: supple, + JVD Respiratory/Chest: lungs clear, no respiratory distress, no accessory muscle use Cardiovascular: regular rate, rhythm, no gallop, + systolic murmur, + pertinent finding (no rub) Abdomen/GI: non tender, soft Extremities/Musculoskelatal: normal inspection, + pedal edema Neurologic/Psych: alert, normal mood/affect, oriented x 3 Family History Patient reports no known family medical history. Social History Marital Status: single Occupation: unemployed Laboratory Results Past 24 Hours 08/03/16 05:33 08/03/16 05:33 Test 08/02/16 19:38 08/03/16 05:33 08/03/16 06:53 08/03/16 11:09 Bedside Glucose 99 mg/dl (70-99) 82 mg/dl (70-99) 53 mg/dl (70-99) Red Blood Count 3.64 M/uL (4.7-6.1) Mean Corpuscular Volume 89.6 fL (80-100) Mean Corpuscular Hemoglobin 29.7 pg (25-34) Mean Corpuscular Hemoglobin Concent 33.1 g/dl (32-36) RDW Standard Deviation 48.6 fL (36.4-46.3) RDW Coefficient of Variation 14.9 % (11.5-14.5) Mean Platelet Volume 11.7 fL (7.4-10.4) Anion Gap 17.0 mmol/L (3-11) Est Creatinine Clear Calc Drug Dose 14.7 ml/min Estimated GFR () 8.0 Estimated GFR (Non- 6.9 BUN/Creatinine Ratio 21.1 (10-20) Calcium Level 10.0 mg/dl (8.5-10.1) Phosphorus Level 8.0 mg/dl (2.5-4.9) Magnesium Level 2.5 mg/dl (1.8-2.4) Albumin 2.8 gm/dl (3.4-5.0) Test 08/03/16 11:47 08/03/16 16:28 08/03/16 16:45 08/03/16 17:45 Bedside Glucose 80 mg/dl (70-99) 65 mg/dl (70-99) 60 mg/dl (70-99) Allergies Coded Allergies: Cat Dander (Verified Allergy, Intermediate, RESPIRATORY SX, 08/02/16) Dust (Verified Allergy, Intermediate, ASTHMA SYMPTOMS, 08/02/16) Heparin (Verified Allergy, Intermediate, GI SYMPTOMS, 08/02/16) Uncoded Allergies: CIGARETTE SMOKE (Allergy, Unknown, SOB/COUGH, 08/02/16) WEATHER CHANGES (Allergy, Unknown, GETS SICK, 08/02/16) Medications Current Inpatient Medications Medications (Trade) Dose Ordered Sig/Niki Route Start Time Stop Time Status Last Admin Dose Admin Aspirin (Ecotrin Tab) 81 mg DAILY PO 08/02/16 09:00 09/01/16 08:59 08/03/16 08:24 81 MG Cyclobenzaprine HCl (Flexeril Tab) 5 mg TID PO 08/02/16 09:00 09/01/16 08:59 08/03/16 08:24 5 MG Hydralazine HCl (Apresoline Tab) 50 mg TID PO 08/02/16 09:00 09/01/16 08:59 08/03/16 08:23 50 MG Isosorbide Dinitrate (Isordil Tab) 20 mg BID@0700,1200 PO 08/02/16 12:00 09/01/16 11:59 08/03/16 12:16 20 MG Metolazone (Zaroxolyn Tab) 5 mg DAILY PO 08/02/16 09:00 09/01/16 08:59 08/03/16 08:23 5 MG Spironolactone (Aldactone Tab) 25 mg DAILY@0930 PO 08/02/16 09:30 09/01/16 09:29 08/03/16 10:30 25 MG Torsemide (Demadex Tab) 20 mg DAILY@1700 PO 08/02/16 17:00 09/01/16 16:59 08/03/16 16:38 20 MG Torsemide (Demadex Tab) 100 mg QAM PO 08/02/16 09:00 09/01/16 08:59 08/03/16 10:52 100 MG Hydralazine HCl (HydrALAZINE INJ) 10 mg Q6 PRN IM 08/02/16 07:15 09/01/16 07:14 Azithromycin (Zithromax Tab) 250 mg DAILY PO 08/02/16 10:00 08/05/16 08:59 08/03/16 08:24 250 MG Tobramycin Sulfate (Tobrex Oph Soln) 1 drops DAILY OPL 08/02/16 09:00 08/12/16 08:59 08/03/16 08:23 1 DROPS Insulin Aspart (novoLOG ASPART) SLIDING SCALE If C... ACHS SC 08/02/16 11:00 09/01/16 10:59 08/02/16 17:47 5 UNITS Glucose (Glucose 40% Gel) 15-30 GRAMS 15 GRAMS... UD PRN PO 08/02/16 08:45 09/01/16 08:44 Glucose (Glucose Chew Tab) 4-8 Tablets 4 Tabl... UD PRN PO 08/02/16 08:45 09/01/16 08:44 08/03/16 11:13 4 TABS Dextrose (Dextrose 50% 50ML Syringe) 25-50ML OF 50% DW IV FOR... UD PRN IV 08/02/16 08:45 09/01/16 08:44 Glucagon (Glucagon Inj) 1 mg UD PRN SQ 08/02/16 08:45 09/01/16 08:44 Acetaminophen/ Hydrocodone Bitart ([place] 5/325 Tab) 1 tab Q8 PRN PO 08/02/16 08:45 08/16/16 08:44 08/02/16 11:11 1 TAB Albuterol/ Ipratropium (Duoneb) 3 ml Q4R PRN INH 08/02/16 08:45 09/01/16 08:44 Guaifenesin (Organidin Nr Tab) 200 mg Q8 PRN PO 08/02/16 08:45 09/01/16 08:44 Sevelamer HCl (Renvela) 800 mg AC PO 08/02/16 16:15 09/01/16 16:14 08/03/16 16:39 800 MG Clonidine HCl (Catapres Tab) 0.1 mg Q6H PRN PO 08/02/16 12:00 09/01/16 11:59 Miscellaneous Information (Consult Glycemic Management Pharmacy) 1 UD PRN N/A 08/02/16 14:11 09/01/16 14:10 Metoprolol Succinate (Toprol Xl Tab) 12.5 mg BID PO 08/02/16 21:00 09/01/16 20:59 08/03/16 08:25 12.5 MG Piperacillin Sod/ Tazobactam Sod (Consult) 1 ea UD PRN N/A 08/02/16 20:15 09/01/16 20:14 Piperacillin Sod/ Tazobactam Sod 3.375 gm/Dextrose 115 ml @ 28.75 mls/ hr Q12H IV 08/03/16 04:00 08/13/16 03:59 6/23/17 16:38 28.75 MLS/HR Albuterol (Ventolin Hfa Inhaler) 2 puffs Q6H PRN INH 08/03/16 09:00 09/02/16 08:59 Insulin Glargine (Lantus Solostar Pen) 30 unit QPM SC 08/03/16 21:00 09/02/16 20:59 Impression (1) CKD (chronic kidney disease), stage IV (2) Chest pain (3) Sciatica (4) Anemia (5) Idiopathic cardiomyopathy Cliff is a 41-year-old male with idiopathic cardiomyopathy, history of ventricular arrhythmia, hypertension, diabetes mellitus, and chronic kidney disease class V A3. Cliff has ESRD with significant azotemia, early signs of uremia and hypervolemia. I suspect he will feel better starting hemodialysis at this time. He does plan to transition to PD in the near future once PD catheter is placed. Recommendations -- HD permcath placement today -- Outpatient HD to be arranged at [facility] under the care of Dr. Barrios -- Plan first HD treatment tomorrow (orders entered into EMR) -- Hepatitis profile pending -- Repeat metabolic profile in AM -- Renal diet
[2016-08-03] MEDS: HYDROCODONE/ACETAMOPHEN 5/325MG TAB PO PRN (19:25)
[2016-08-03] MEDS ORDERED: INSULIN GLARGINE SOLOSTAR 100 UNITS/ML 3 ML PEN SC SCH (21:00)
[2016-08-04] VITALS (20 sets, daily range): BP systolic 134–164; BP diastolic 72–101; PULSE 71–84; TEMP 36.4–36.8; O2SAT 95–98
[2016-08-04] MEDS: PIPERACILL/TAZOBAC IV 3.375 GM in DEXTROSE 5% 100ML IV SCH ×2 (04:22→18:00)
[2016-08-04] MEDS: ISOSORBIDE DINITRATE 20 MG TAB PO SCH ×2 (07:00→14:55)
[2016-08-04 07:02] LABS: HEMATOCRIT 32.4 % (42-52); MEAN CELL VOLUME 89.5 fL (80-100); MEAN CORPUSCULAR HEMOGLOBIN 29.6 pg (25-34); MEAN PLATELET VOLUME 11.7 fL (7.4-10.4); PLATELET COUNT 228 K/uL (130-400); RED BLOOD COUNT 3.62 M/uL (4.7-6.1); WHITE BLOOD COUNT 10.03 K/uL (4.8-10.8)
--- NOTE | 2016-08-04 07:09 | Surgery Progress Note ---
Surgery Progress Note Date of Service Aug 04, 2016. Subjective afeb, awake alert Objective Vital Signs: Date Time Temp Pulse Resp B/P (MAP) Pulse Ox O2 Delivery O2 Flow Rate FiO2 08/04/16 04:00 Room Air 08/04/16 04:00 36.6 71 20 145/82 (103) 98 Room Air 08/04/16 00:00 Room Air 08/03/16 23:23 36.5 71 16 144/83 (103) 99 Room Air 08/03/16 20:00 Room Air 08/03/16 19:37 36.3 72 20 158/95 (116) 95 Room Air 08/03/16 18:30 37.0 73 22 158/92 (114) 94 Room Air 08/03/16 17:30 36.9 73 22 166/100 (122) 97 Room Air 08/03/16 16:30 Room Air 08/03/16 16:30 36.4 72 16 156/87 (110) 94 Room Air 08/03/16 16:04 70 16 148/88 95 3 08/03/16 11:14 36.8 72 16 156/91 (112) 97 08/03/16 11:09 36.9 74 16 151/88 94 Room Air 08/03/16 11:02 Room Air 08/03/16 07:58 36.9 74 16 151/88 (109) 94 Room Air 08/03/16 07:30 Room Air Laboratory Results: Results Past 24 Hours Test 08/03/16 11:09 08/03/16 11:47 08/03/16 16:28 08/03/16 16:45 Range/Units Bedside Glucose 53 80 65 60 70-99 mg/dl Test 08/03/16 17:27 08/03/16 17:45 08/03/16 20:10 08/04/16 06:37 Range/Units Bedside Glucose 97 136 70-99 mg/dl Hepatitis B Surface Antigen NEG NEG Hepatitis B Surface Antibody NEG White Blood Count 10.03 4.8-10.8 K/uL Red Blood Count 3.62 4.7-6.1 M/uL Hemoglobin 10.7 14.0-18.0 g/dL Hematocrit 32.4 42-52 % Mean Corpuscular Volume 89.5 80-100 fL Mean Corpuscular Hemoglobin 29.6 25-34 pg Mean Corpuscular Hemoglobin Concent 33.0 32-36 g/dl RDW Standard Deviation 49.2 36.4-46.3 fL RDW Coefficient of Variation 15.0 11.5-14.5 % Platelet Count 228 130-400 K/uL Mean Platelet Volume 11.7 7.4-10.4 fL no worsening erythema or drainage from Lt buttock wound Assessment & Plan 08/04/16- pt would like f/u with Dr Briceno when discharged
[2016-08-04 07:49] LABS: CALCIUM 9.9 mg/dl (8.5-10.1); CREATININE 8.8 mg/dl (0.60-1.40); POTASSIUM 4.3 mmol/L (3.5-5.1)
[2016-08-04] MEDS: RENVELA 800 MG PO SCH ×3 (07:58→16:15)
[2016-08-04] MEDS: TOBRAMYCIN SULF 0.3% OP SOLN 5 ML BTL OPL SCH (07:59)
[2016-08-04] MEDS: CYCLOBENZAPRINE HCL 10 MG TAB PO SCH ×3 (08:01→20:46)
[2016-08-04] MEDS: ASPIRIN 81 MG ECTAB PO SCH (08:01)
[2016-08-04] MEDS: AZITHROMYCIN 250 MG TAB PO SCH (08:02)
[2016-08-04] MEDS: INSULIN ASPART 100 UNITS/ML 3 ML PEN SC SCH ×4 (08:04→20:43)
[2016-08-04 08:07] LABS: BUN/CREATININE RATIO 20.6 (10-20); PHOSPHORUS 8.7 mg/dl (2.5-4.9)
[2016-08-04 10:34] LABS: FERRITIN 92.6 ng/ml (8.0-388.0)
--- NOTE | 2016-08-04 11:00 | Pharmacy Progress Note ---
Glycemic Control Progress Note Date of Service Aug 04, 2016. Scope Glycemic Pharmacist consulted for glycemic control to write orders per [facility] inpatient glycemic control protocol. Objective Accuchecks BSG (last 24hrs): Test 08/03/16 11:09 08/03/16 11:47 08/03/16 16:28 08/03/16 16:45 Bedside Glucose 53 mg/dl (70-99) 80 mg/dl (70-99) 65 mg/dl (70-99) 60 mg/dl (70-99) Test 08/03/16 17:27 08/03/16 20:10 08/04/16 06:37 08/04/16 06:52 Bedside Glucose 97 mg/dl (70-99) 136 mg/dl (70-99) 73 mg/dl (70-99) Random Glucose 65 mg/dl (70-99) HbA1c: Test 08/02/16 11:18 Hemoglobin A1c 8.1 % (4.5-5.6) H Recent Pertinent Medications The patient is currently receiving: * Basal insulin: Lantus 30 units every 24 hours given at bedtime * Correctional Insulin: Novolog Correction per scale ACHS Goal Range: Low 110 mg/dL - High 150 mg/dL Correction Factor: 25 mg/dL/unit * Prandial insulin: Per carb ratio of 1 unit per 9 grams CHO consumed Outpatient Anti-Diabetic Meds Basal Insulin Bolus Insulin Total daily outpatient dose = 68-80 units/day Assessment & Plan ASSESSMENT: * See progress note from 08/02 for more background info, in short: * Pt receiving SQ basal bolus insulin regimen for hyperglycemia secondary to baseline DM,stress/infection, recent surgery {cardiac cath [employer]REL [employer]ASHER}, * Patient is currently receiving an average of 30-42 units of insulin per day. This is less than outpatient dosing of 68-80units/day d/t NPO and controlled CHO intake hospital diet. * BSGs ranging 54 - 136 mg/dl over the past 24hrs * Changes needed to insulin regimen: * AM Fasting BSG = 73 mg/dl. This is slightly below goal range for patient based on inpatient targets and co-morbidities. Therefore Basal insulin needs decreased. Current dosing is already decreased as compared to outpatient dosing but further decrease warranted for NPO/decrease PO status. * Post-prandial BSGs are in range therefore no changes needed to CF/CR. PLAN FOR INPATIENT GLYCEMIC CONTROL: * Basal insulin * Decrease Lantus from 30 to 25 units units SQ HS * Bolus insulin: No change * NovoLog per scale ACHS or Q6hrs while NPO * Goal Range: Low 110 mg/dL - High 150 mg/dL * Correction Factor: 25 mg/dL/unit * Nutritional / Prandial insulin per carb ratio of 1 unit per 9 grams CHO consumed * Please note that the plan above was derived based on current level of insulin resistance and hospital stress. These recommendations are appropriate for inpatient admission only. Plan of care upon discharge will need to be reassessed to avoid potential outpatient hypo/hyperglycemia. Thank you.
[2016-08-04] MEDS: HYDROCODONE/ACETAMOPHEN 5/325MG TAB PO PRN (11:21)
[2016-08-04] MEDS: CALCITRIOL 0.25 MCG CAP PO SCH (11:21)
--- NOTE | 2016-08-04 11:31 | Nephrology Progress Note ---
Nephrology Progress Note Date of Service Aug 04, 2016. Chief Complaint Follow-up for end-stage renal disease. Iraida Coronado was seen and examined in his room this morning. He had left IJ TDC yesterday, currently the area looks fine but he is having pain at the catheter site. denies nausea, shortness of breath or chest pain. He continues to make urine, creatinine 8.8 but on the other electrolyte acceptable. BUN stable at 183. Blood pressure stable. Review of Systems A complete review of systems was performed. Pertinent positives are noted above. All other systems are negative. Vital Signs Last 8 Hrs Date Time Temp Pulse Resp B/P (MAP) Pulse Ox O2 Delivery O2 Flow Rate FiO2 08/04/16 08:19 36.8 84 18 152/79 (103) 98 08/04/16 08:00 98 Room Air 08/04/16 04:00 Room Air 08/04/16 04:00 36.6 71 20 145/82 (103) 98 Room Air Last Recorded Weight Weight (Kilograms): 104.400 Physical Exam GENERAL: Middle-aged male , AAA x 3, in mild distress with pain NECK: Supple, no JVD. CHEST: Left IJ tunnel dialysis catheter, area mildly tender but no significant swelling, erythema or bleeding. RESPIRATORY: Normal breathing efforts, no accessory muscle use, clear to auscultation bilaterally, no wheezes or rales. CARDIOVASCULAR: S1, S2 normal, rate rhythm regular. EXTREMITY: No lower extremity edema NEURO: speech fluent. PSYCHIATRY: Normal mood and judgment Family History Patient reports no known family medical history. Social History Marital Status: single Occupation: unemployed Laboratory Results Past 24 Hours 08/04/16 06:37 08/04/16 06:37 Test 08/03/16 11:47 08/03/16 16:28 08/03/16 16:45 08/03/16 17:27 Bedside Glucose 80 mg/dl (70-99) 65 mg/dl (70-99) 60 mg/dl (70-99) 97 mg/dl (70-99) Test 08/03/16 17:45 08/03/16 20:10 08/04/16 06:37 08/04/16 06:52 Hepatitis B Surface Antigen NEG (NEG) Hepatitis B Surface Antibody NEG Bedside Glucose 136 mg/dl (70-99) 73 mg/dl (70-99) Red Blood Count 3.62 M/uL (4.7-6.1) Mean Corpuscular Volume 89.5 fL (80-100) Mean Corpuscular Hemoglobin 29.6 pg (25-34) Mean Corpuscular Hemoglobin Concent 33.0 g/dl (32-36) RDW Standard Deviation 49.2 fL (36.4-46.3) RDW Coefficient of Variation 15.0 % (11.5-14.5) Mean Platelet Volume 11.7 fL (7.4-10.4) Anion Gap 18.0 mmol/L (3-11) Est Creatinine Clear Calc Drug Dose 14.2 ml/min Estimated GFR () 7.7 Estimated GFR (Non- 6.6 BUN/Creatinine Ratio 20.6 (10-20) Calcium Level 9.9 mg/dl (8.5-10.1) Phosphorus Level 8.7 mg/dl (2.5-4.9) Iron Level 33 mcg/dl (35-175) Total Iron Binding Capacity 283 mcg/dl (250-450) Transferrin 232 mg/dl (200-360) Transferrin % Saturation 10 % (20-50) Ferritin 92.6 ng/ml (8.0-388.0) Albumin 2.6 gm/dl (3.4-5.0) Allergies Coded Allergies: Cat Dander (Verified Allergy, Intermediate, RESPIRATORY SX, 08/02/16) Dust (Verified Allergy, Intermediate, ASTHMA SYMPTOMS, 08/02/16) Heparin (Verified Allergy, Intermediate, GI SYMPTOMS, 08/02/16) Uncoded Allergies: CIGARETTE SMOKE (Allergy, Unknown, SOB/COUGH, 08/02/16) WEATHER CHANGES (Allergy, Unknown, GETS SICK, 08/02/16) Medications Current Inpatient Medications Medications (Trade) Dose Ordered Sig/Niki Route Start Time Stop Time Status Last Admin Dose Admin Aspirin (Ecotrin Tab) 81 mg DAILY PO 08/02/16 09:00 09/01/16 08:59 08/04/16 08:01 81 MG Cyclobenzaprine HCl (Flexeril Tab) 5 mg TID PO 08/02/16 09:00 09/01/16 08:59 08/04/16 08:01 5 MG Hydralazine HCl (Apresoline Tab) 50 mg TID PO 08/02/16 09:00 09/01/16 08:59 08/03/16 20:53 50 MG Isosorbide Dinitrate (Isordil Tab) 20 mg BID@0700,1200 PO 08/02/16 12:00 09/01/16 11:59 08/03/16 12:16 20 MG Metolazone (Zaroxolyn Tab) 5 mg DAILY PO 08/02/16 09:00 09/01/16 08:59 08/03/16 08:23 5 MG Spironolactone (Aldactone Tab) 25 mg DAILY@0930 PO 08/02/16 09:30 09/01/16 09:29 08/03/16 10:30 25 MG Torsemide (Demadex Tab) 20 mg DAILY@1700 PO 08/02/16 17:00 09/01/16 16:59 08/03/16 16:38 20 MG Torsemide (Demadex Tab) 100 mg QAM PO 08/02/16 09:00 09/01/16 08:59 08/03/16 10:52 100 MG Hydralazine HCl (HydrALAZINE INJ) 10 mg Q6 PRN IM 08/02/16 07:15 09/01/16 07:14 Azithromycin (Zithromax Tab) 250 mg DAILY PO 08/02/16 10:00 08/05/16 08:59 08/04/16 08:02 250 MG Tobramycin Sulfate (Tobrex Oph Soln) 1 drops DAILY OPL 08/02/16 09:00 08/12/16 08:59 08/04/16 07:59 1 DROPS Insulin Aspart (novoLOG ASPART) SLIDING SCALE If C... ACHS SC 08/02/16 11:00 09/01/16 10:59 08/04/16 08:04 6 UNITS Glucose (Glucose 40% Gel) 15-30 GRAMS 15 GRAMS... UD PRN PO 08/02/16 08:45 09/01/16 08:44 Glucose (Glucose Chew Tab) 4-8 Tablets 4 Tabl... UD PRN PO 08/02/16 08:45 09/01/16 08:44 08/03/16 11:13 4 TABS Dextrose (Dextrose 50% 50ML Syringe) 25-50ML OF 50% DW IV FOR... UD PRN IV 08/02/16 08:45 7/22/17 08:44 Glucagon (Glucagon Inj) 1 mg UD PRN SQ 08/02/16 08:45 09/01/16 08:44 Acetaminophen/ Hydrocodone Bitart ([place] 5/325 Tab) 1 tab Q8 PRN PO 08/02/16 08:45 08/16/16 08:44 08/04/16 11:21 1 TAB Albuterol/ Ipratropium (Duoneb) 3 ml Q4R PRN INH 08/02/16 08:45 09/01/16 08:44 Guaifenesin (Organidin Nr Tab) 200 mg Q8 PRN PO 08/02/16 08:45 09/01/16 08:44 Sevelamer HCl (Renvela) 800 mg AC PO 08/02/16 16:15 09/01/16 16:14 08/04/16 11:21 800 MG Clonidine HCl (Catapres Tab) 0.1 mg Q6H PRN PO 08/02/16 12:00 09/01/16 11:59 Miscellaneous Information (Consult Glycemic Management Pharmacy) 1 ea UD PRN N/A 08/02/16 14:11 09/01/16 14:10 Metoprolol Succinate (Toprol Xl Tab) 12.5 mg BID PO 08/02/16 21:00 09/01/16 20:59 08/03/16 20:54 12.5 MG Piperacillin Sod/ Tazobactam Sod (Consult) 1 ea UD PRN N/A 08/02/16 20:15 09/01/16 20:14 Piperacillin Sod/ Tazobactam Sod 3.375 gm/Dextrose 115 ml @ 28.75 mls/ hr Q12H IV 08/03/16 04:00 08/13/16 03:59 08/04/16 04:22 28.75 MLS/HR Albuterol (Ventolin Hfa Inhaler) 2 puffs Q6H PRN INH 08/03/16 09:00 09/02/16 08:59 Insulin Glargine (Lantus Solostar Pen) 25 unit QPM SC 08/04/16 21:00 09/03/16 20:59 Vitamin B Complex/ Vit C/Folic Acid (Nephrocaps) 1 cap QAM PO 08/05/16 09:00 09/04/16 08:59 Calcitriol (Rocaltrol Cap) 0.5 mcg TuThSa@0900 PO 08/04/16 11:00 09/03/16 10:59 08/04/16 11:21 0.5 MCG Impression (1) CKD (chronic kidney disease), stage IV (2) Chest pain (3) Sciatica (4) Anemia (5) Idiopathic cardiomyopathy Cliff is a 41-year-old male with idiopathic cardiomyopathy, history of ventricular arrhythmia, hypertension, diabetes mellitus, and chronic kidney disease class V A3. Clfif has ESRD with significant azotemia, early signs of uremia and hypervolemia. I suspect he will feel better starting hemodialysis at this time. He does plan to transition to PD in the near future once PD catheter is placed. Recommendations -- plan for 1st hemodialysis today with 2 hour, 160 dialysis center with low blood flow considering significant azotemia -- next dialysis will be Saturday -- Outpatient HD to be arranged at [facility] under the care of Dr. Barrios -- Plan first HD treatment tomorrow (orders entered into EMR) -- Hepatitis profile pending -- Repeat metabolic profile in AM -- Renal diet -- Nephrocaps once a day -- will check iron study, if significant iron deficiency, will start on Venofer.
[2016-08-04] MEDS: METOPROLOL SUCC 25MG EXT REL TAB PO SCH ×2 (14:54→20:45)
[2016-08-04] MEDS: SPIRONOLACTONE 25 MG TAB PO SCH (14:56)
[2016-08-04] MEDS: METOLAZONE 5 MG TAB PO SCH (14:56)
[2016-08-04] MEDS: TORSEMIDE 20 MG TAB PO SCH ×2 (14:58→17:00)
--- NOTE | 2016-08-04 15:41 | Cardiology Follow-Up ---
Subjective General Date of Service: Aug 04, 2016. Chief Complaint: follow up CM Pt evaluation today including: conversation w/ patient, conversation w/ family , physical exam History of Present Illness The patient is a 41 year old male seen in follow up. Patient completed 2 hours of HD today and is now back in his room on the telemetry floor. He notes no SOB or chest pain. Allergies Coded Allergies: Cat Dander (Verified Allergy, Intermediate, RESPIRATORY SX, 08/02/16) Dust (Verified Allergy, Intermediate, ASTHMA SYMPTOMS, 08/02/16) Heparin (Verified Allergy, Intermediate, GI SYMPTOMS, 08/02/16) Uncoded Allergies: CIGARETTE SMOKE (Allergy, Unknown, SOB/COUGH, 08/02/16) WEATHER CHANGES (Allergy, Unknown, GETS SICK, 08/02/16) Social History Smoking Status: Former Smoker Hx Tobacco Use In Past Year?: No Hx Alcohol Use - Type And Amou: No Hx Substance Use - Type And Am: No Problem List Medical Problems: (1) Acute non-ST segment elevation myocardial infarction Status: Acute (2) Acute renal failure Status: Acute (3) Hypomagnesemia Status: Acute Physical Exam Vital Signs Last Vital Signs Documentation Date Time Temp Pulse Resp B/P (MAP) Pulse Ox O2 Delivery O2 Flow Rate FiO2 08/04/16 15:04 72 18 143/78 (99) 98 Room Air 08/04/16 14:20 36.7 08/03/16 16:04 3 Physical Exam Constitutional: General Apperance: well-nourished, well-developed Level of Distress: NAD, chronically ill Ambulation: ambulating normally Psychiatric: Mental Status: active & alert, normal mood, normal affect Orientation: oriented except where noted, to time, to place, to person Memory: recent memory normal, remote memory normal Head: normocephalic, atraumatic Eyes: EOM: EOMI Neck: supple, trachea midline Lungs: Respiratory effort: no dyspnea Auscultation: no rales/crackles, no rhonchi, decreased breath sounds Peripheral Pulses: Bruits: none appreciated Carotid Pulse: normal on the left, normal on the right Radial Pulse: normal on the left, normal on the right Femoral Pulse: normal on the left, normal on the right Dorsalis Pedis Pulse: decreased on the left, decreased on the right Abdomen: Bowel Sounds: normal Inspection & Palpation: soft, non-distended, no tenderness, guarding & rebound Musculoskeletal: normal strength (5/5 throughout), normal tone Neurologic: Cranial Nerves: grossly intact Sensation: grossly intact Assessment and Plan Assessment and Plan Impression: 1. Non ischemic CM, LVEF ~20%, s/p single chamber AICD in 2007 2. Progressive renal failure, uremia, azotemia, Tunneled HD catheter placed and had HD today. 3. Bronchitis Plan: Continue current treatment including oral isordil, hydralazine, ASA. Toprol started this hospital stay. Laboratory Results Last 24 Hours Test 08/03/16 16:28 08/03/16 16:45 08/03/16 17:27 08/03/16 17:45 Bedside Glucose 65 mg/dl 60 mg/dl 97 mg/dl Hepatitis B Surface Antigen NEG Hepatitis B Surface Antibody NEG Test 08/03/16 20:10 08/04/16 06:37 08/04/16 06:52 08/04/16 11:09 Bedside Glucose 136 mg/dl 73 mg/dl 90 mg/dl White Blood Count 10.03 K/uL Red Blood Count 3.62 M/uL Hemoglobin 10.7 g/dL Hematocrit 32.4 % Mean Corpuscular Volume 89.5 fL Mean Corpuscular Hemoglobin 29.6 pg Mean Corpuscular Hemoglobin Concent 33.0 g/dl RDW Standard Deviation 49.2 fL RDW Coefficient of Variation 15.0 % Platelet Count 228 K/uL Mean Platelet Volume 11.7 fL Sodium Level 135 mmol/L Potassium Level 4.3 mmol/L Chloride Level 94 mmol/L Carbon Dioxide Level 23 mmol/L Anion Gap 18.0 mmol/L Blood Urea Nitrogen 183 mg/dl Creatinine 8.80 mg/dl Est Creatinine Clear Calc Drug Dose 14.2 ml/min Estimated GFR () 7.7 Estimated GFR (Non- 6.6 BUN/Creatinine Ratio 20.6 Random Glucose 65 mg/dl Calcium Level 9.9 mg/dl Phosphorus Level 8.7 mg/dl Iron Level 33 mcg/dl Total Iron Binding Capacity 283 mcg/dl Transferrin 232 mg/dl Transferrin % Saturation 10 % Ferritin 92.6 ng/ml Albumin 2.6 gm/dl
--- NOTE | 2016-08-04 16:29 | Progress Note ---
Medicine Progress Note Date & Time of Visit: Aug 04, 2016 at 16:28. Objective Last 8 Hrs Date Time Temp Pulse Resp B/P (MAP) Pulse Ox O2 Delivery O2 Flow Rate FiO2 08/04/16 16:00 95 Room Air 08/04/16 15:48 36.4 08/04/16 15:04 72 18 143/78 (99) 98 Room Air 08/04/16 14:20 36.7 72 164/87 (112) 08/04/16 14:15 73 149/89 08/04/16 14:00 75 153/88 08/04/16 13:45 75 151/90 08/04/16 13:30 73 154/95 08/04/16 13:15 72 153/93 08/04/16 13:00 72 156/96 08/04/16 12:45 72 155/100 08/04/16 12:30 72 161/96 08/04/16 12:15 72 157/101 08/04/16 12:00 36.8 72 162/72 (102) 08/04/16 12:00 97 Room Air 08/04/16 11:57 36.7 76 16 154/95 (114) 97 Laboratory Results: Last 24 Hours Test 08/03/16 16:45 08/03/16 17:27 08/03/16 17:45 08/03/16 20:10 Bedside Glucose 60 mg/dl 97 mg/dl 136 mg/dl Hepatitis B Surface Antigen NEG Hepatitis B Surface Antibody NEG Test 08/04/16 06:37 08/04/16 06:52 08/04/16 11:09 08/04/16 16:13 White Blood Count 10.03 K/uL Red Blood Count 3.62 M/uL Hemoglobin 10.7 g/dL Hematocrit 32.4 % Mean Corpuscular Volume 89.5 fL Mean Corpuscular Hemoglobin 29.6 pg Mean Corpuscular Hemoglobin Concent 33.0 g/dl RDW Standard Deviation 49.2 fL RDW Coefficient of Variation 15.0 % Platelet Count 228 K/uL Mean Platelet Volume 11.7 fL Sodium Level 135 mmol/L Potassium Level 4.3 mmol/L Chloride Level 94 mmol/L Carbon Dioxide Level 23 mmol/L Anion Gap 18.0 mmol/L Blood Urea Nitrogen 183 mg/dl Creatinine 8.80 mg/dl Est Creatinine Clear Calc Drug Dose 14.2 ml/min Estimated GFR () 7.7 Estimated GFR (Non- 6.6 BUN/Creatinine Ratio 20.6 Random Glucose 65 mg/dl Calcium Level 9.9 mg/dl Phosphorus Level 8.7 mg/dl Iron Level 33 mcg/dl Total Iron Binding Capacity 283 mcg/dl Transferrin 232 mg/dl Transferrin % Saturation 10 % Ferritin 92.6 ng/ml Albumin 2.6 gm/dl Bedside Glucose 73 mg/dl 90 mg/dl 94 mg/dl Date/Time Source Procedure Growth Status 08/04/16 14:23 Blood Blood Culture Pending Ordered 08/04/16 14:23 Blood Blood Culture Pending Ordered Assessment & Plan Current Inpatient Medications: Current Inpatient Medications Medications (Trade) Dose Ordered Sig/Niki Route Start Time Stop Time Status Last Admin Dose Admin Aspirin (Ecotrin Tab) 81 mg DAILY PO 08/02/16 09:00 09/01/16 08:59 08/04/16 08:01 81 MG Cyclobenzaprine HCl (Flexeril Tab) 5 mg TID PO 08/02/16 09:00 09/01/16 08:59 08/04/16 14:59 5 MG Hydralazine HCl (Apresoline Tab) 50 mg TID PO 08/02/16 09:00 09/01/16 08:59 08/04/16 14:00 50 MG Isosorbide Dinitrate (Isordil Tab) 20 mg BID@0700,1200 PO 08/02/16 12:00 09/01/16 11:59 08/04/16 14:55 20 MG Metolazone (Zaroxolyn Tab) 5 mg DAILY PO 08/02/16 09:00 09/01/16 08:59 08/04/16 14:56 5 MG Spironolactone (Aldactone Tab) 25 mg DAILY@0930 PO 08/02/16 09:30 09/01/16 09:29 08/04/16 14:56 25 MG Torsemide (Demadex Tab) 20 mg DAILY@1700 PO 08/02/16 17:00 09/01/16 16:59 08/03/16 16:38 20 MG Torsemide (Demadex Tab) 100 mg QAM PO 08/02/16 09:00 09/01/16 08:59 08/04/16 14:58 100 MG Hydralazine HCl (HydrALAZINE INJ) 10 mg Q6 PRN IM 08/02/16 07:15 09/01/16 07:14 Azithromycin (Zithromax Tab) 250 mg DAILY PO 08/02/16 10:00 08/05/16 08:59 08/04/16 08:02 250 MG Tobramycin Sulfate (Tobrex Oph Soln) 1 drops DAILY OPL 08/02/16 09:00 08/12/16 08:59 08/04/16 07:59 1 DROPS Insulin Aspart (novoLOG ASPART) SLIDING SCALE If C... ACHS SC 08/02/16 11:00 09/01/16 10:59 08/04/16 12:09 5 UNITS Glucose (Glucose 40% Gel) 15-30 GRAMS 15 GRAMS... UD PRN PO 08/02/16 08:45 09/01/16 08:44 Glucose (Glucose Chew Tab) 4-8 Tablets 4 Tabl... UD PRN PO 08/02/16 08:45 09/01/16 08:44 08/03/16 11:13 4 TABS Dextrose (Dextrose 50% 50ML Syringe) 25-50ML OF 50% DW IV FOR... UD PRN IV 08/02/16 08:45 09/01/16 08:44 Glucagon (Glucagon Inj) 1 mg UD PRN SQ 08/02/16 08:45 09/01/16 08:44 Acetaminophen/ Hydrocodone Bitart ([place] 5/325 Tab) 1 tab Q8 PRN PO 08/02/16 08:45 08/16/16 08:44 08/04/16 11:21 1 TAB Albuterol/ Ipratropium (Duoneb) 3 ml Q4R PRN INH 08/02/16 08:45 09/01/16 08:44 Guaifenesin (Organidin Nr Tab) 200 mg Q8 PRN PO 08/02/16 08:45 09/01/16 08:44 Sevelamer HCl (Renvela) 800 mg AC PO 08/02/16 16:15 09/01/16 16:14 08/04/16 11:21 800 MG Clonidine HCl (Catapres Tab) 0.1 mg Q6H PRN PO 08/02/16 12:00 09/01/16 11:59 Miscellaneous Information (Consult Glycemic Management Pharmacy) 1 ea UD PRN N/A 08/02/16 14:11 09/01/16 14:10 Metoprolol Succinate (Toprol Xl Tab) 12.5 mg BID PO 08/02/16 21:00 09/01/16 20:59 08/04/16 14:54 12.5 MG Piperacillin Sod/ Tazobactam Sod (Consult) 1 ea UD PRN N/A 08/02/16 20:15 09/01/16 20:14 Piperacillin Sod/ Tazobactam Sod 3.375 gm/Dextrose 115 ml @ 28.75 mls/ hr Q12H IV 08/03/16 04:00 08/13/16 03:59 08/04/16 04:22 28.75 MLS/HR Albuterol (Ventolin Hfa Inhaler) 2 puffs Q6H PRN INH 08/03/16 09:00 09/02/16 08:59 Insulin Glargine (Lantus Solostar Pen) 25 unit QPM SC 08/04/16 21:00 09/03/16 20:59 Vitamin B Complex/ Vit C/Folic Acid (Nephrocaps) 1 cap QAM PO 08/05/16 09:00 09/04/16 08:59 Calcitriol (Rocaltrol Cap) 0.5 mcg TuThSa@0900 PO 08/04/16 11:00 09/03/16 10:59 08/04/16 11:21 0.5 MCG
--- NOTE | 2016-08-04 19:48 | Progress Note ---
Medicine Progress Note Date & Time of Visit: Aug 04, 2016 at 19:38. Subjective seen sitting up in bed, appears more comfortable, brighter s/p perm cath placement yesterday s/p 1st HD today, tolerated well no dizziness, nausea, abdominal pain, chest pain, dyspnea still has right wrist/hand pain no pain on the left buttock no other symptoms Objective Last 8 Hrs Date Time Temp Pulse Resp B/P (MAP) Pulse Ox O2 Delivery O2 Flow Rate FiO2 08/04/16 19:28 36.5 72 18 134/73 (93) 96 08/04/16 16:00 95 Room Air 08/04/16 15:48 36.4 08/04/16 15:04 72 18 143/78 (99) 98 Room Air 08/04/16 14:20 36.7 72 164/87 (112) 08/04/16 14:15 73 149/89 08/04/16 14:00 75 153/88 08/04/16 13:45 75 151/90 08/04/16 13:30 73 154/95 08/04/16 13:15 72 153/93 08/04/16 13:00 72 156/96 08/04/16 12:45 72 155/100 08/04/16 12:30 72 161/96 08/04/16 12:15 72 157/101 08/04/16 12:00 36.8 72 162/72 (102) 08/04/16 12:00 97 Room Air 08/04/16 11:57 36.7 76 16 154/95 (114) 97 Physical Exam: General- oriented x 3, not in distress, speaks in sentences with no effort Eyes-anicteric Neck- no JVD L IJ cath: no swelling/erythema/bleeding Lungs- clear b/s bilaterally, no rales/wheezes Heart- regular rhythm; no murmur, normal rate Abdomen- normal bowel sounds, soft, nontender Left Buttock- wound with small opening on the crease: less erythema, tenderness , drainage Extremities- no pretibial edema, no calf tenderness; peripheral pulses intact right wrist- on the medial side, (+) small scabbed wound, (+) moderate tenderness but no edema, erythema, warmth Neuro- alert, oriented x 3; no gross focal neuro deficits Skin- warm & dry Laboratory Results: Last 24 Hours Test 08/03/16 20:10 08/04/16 06:37 08/04/16 06:52 08/04/16 11:09 Bedside Glucose 136 mg/dl 73 mg/dl 90 mg/dl White Blood Count 10.03 K/uL Red Blood Count 3.62 M/uL Hemoglobin 10.7 g/dL Hematocrit 32.4 % Mean Corpuscular Volume 89.5 fL Mean Corpuscular Hemoglobin 29.6 pg Mean Corpuscular Hemoglobin Concent 33.0 g/dl RDW Standard Deviation 49.2 fL RDW Coefficient of Variation 15.0 % Platelet Count 228 K/uL Mean Platelet Volume 11.7 fL Sodium Level 135 mmol/L Potassium Level 4.3 mmol/L Chloride Level 94 mmol/L Carbon Dioxide Level 23 mmol/L Anion Gap 18.0 mmol/L Blood Urea Nitrogen 183 mg/dl Creatinine 8.80 mg/dl Est Creatinine Clear Calc Drug Dose 14.2 ml/min Estimated GFR () 7.7 Estimated GFR (Non- 6.6 BUN/Creatinine Ratio 20.6 Random Glucose 65 mg/dl Calcium Level 9.9 mg/dl Phosphorus Level 8.7 mg/dl Iron Level 33 mcg/dl Total Iron Binding Capacity 283 mcg/dl Transferrin 232 mg/dl Transferrin % Saturation 10 % Ferritin 92.6 ng/ml Albumin 2.6 gm/dl Test 08/04/16 16:13 Bedside Glucose 94 mg/dl Date/Time Source Procedure Growth Status 08/04/16 14:23 Blood Blood Culture Pending Ordered 08/04/16 14:23 Blood Blood Culture Pending Ordered Assessment & Plan 41 year old male with history of DM Type 2, HTN, CAD, Cardiomyopathy, CKD 5 presenting with chest pain. CHEST PAIN HISTORY OF CAD, CARDIOMYOPATHY --Significant risks factor such as DM, HTN, CKD stage 5, Cardiomyopathy -- cardiac markers x stable -- ekg no signs of acute ischemia -- echo: -- Conclusions -- * The left ventricle is mildly dilated. * There is severe concentric left ventricular hypertrophy. * There is severe global hypokinesis of the left ventricle. * Ejection Fraction = 20-25%. * Diastolic dysfunction, Grade III (restrictive pattern), consistent with markedly increased left atrial pressure. * Aortic valve sclerosis moderate, without significant aortic valvular stenosis. * There is trace mitral regurgitation. * There is mild to moderate tricuspid regurgitation. * Right ventricular systolic pressure is elevated at 40-50mmHg. -- Cardiology consulted, appreciate the input Chest pain likely from uncontrolled blood pressure Metoprolol, Nitropaste added for BP control BP improving, Nitropaste discontinued -- continue usual Hydralazine, Imdur CARDIOMYOPATHY Hx ICD placement -- echo as noted above Defibrillator interrogated: unremarkable per Anatomy Teacher -- euvolemic -- continue Metolazone, Spironolactone, Torsemide CKD STAGE 5 Nephrology consulted- Dr. Wild s/p Left IJ Permcath placement 08/03/16 s/p 1st HD session 08/04/16 -- tolerated HD -- plan for next HD on Saturday HTN management per #1 DM TYPE 2 HBA1C 8.2 on 05/28 Continue Lantus Insulin coverage LEFT WOUND BUTTOCK (+) purulent drainage on admission wound care consulted Gen surg consulted, no interventions at this time, will need local wound care started on Zosyn, also on Azithromycin (continued from outpatient for bronchitis ) -- wound cultures pending -- improving -- on Zosyn Day 3 ID consulted, recommend Cephalexin on discharge ff up cultures BRONCHITIS cough improving, no dyspnea continue Zithromax for 1 more day Duoneb treatment PRN, Albuterol PRN BACK PAIN pain medication prn continue cyclobenzaprine RIGHT WRIST PAIN WOUND ON THE RIGHT WRIST xray wrist: negative -- still has significant pain despite antibiotics -- CT scan ordered, follow up -- Ortho consulted DVT PX SCDs patient reports previous episode of nausea, sweats with heparin- declining heparin stating he does not want any more side effects explained that this is for DVT prevention, accepting of risks CODE STATUS FULL CODE Dispo pending recently moved from [facility] to [facility] lives with mother currently in the process of establishing care in [facility] also will need to establish care with Senior Windows Engineer in [place], close to home- Dr. Wild arranging needs to establish care with a Pattern Attendant Current Inpatient Medications: Current Inpatient Medications Medications (Trade) Dose Ordered Sig/Niki Route Start Time Stop Time Status Last Admin Dose Admin Aspirin (Ecotrin Tab) 81 mg DAILY PO 08/02/16 09:00 09/01/16 08:59 08/04/16 08:01 81 MG Cyclobenzaprine HCl (Flexeril Tab) 5 mg TID PO 08/02/16 09:00 09/01/16 08:59 08/04/16 14:59 5 MG Hydralazine HCl (Apresoline Tab) 50 mg TID PO 08/02/16 09:00 09/01/16 08:59 08/04/16 14:00 50 MG Isosorbide Dinitrate (Isordil Tab) 20 mg BID@0700,1200 PO 08/02/16 12:00 09/01/16 11:59 08/04/16 14:55 20 MG Metolazone (Zaroxolyn Tab) 5 mg DAILY PO 08/02/16 09:00 09/01/16 08:59 08/04/16 14:56 5 MG Spironolactone (Aldactone Tab) 25 mg DAILY@0930 PO 08/02/16 09:30 09/01/16 09:29 08/04/16 14:56 25 MG Torsemide (Demadex Tab) 20 mg DAILY@1700 PO 08/02/16 17:00 09/01/16 16:59 08/03/16 16:38 20 MG Torsemide (Demadex Tab) 100 mg QAM PO 08/02/16 09:00 09/01/16 08:59 08/04/16 14:58 100 MG Azithromycin (Zithromax Tab) 250 mg DAILY PO 08/02/16 10:00 08/05/16 08:59 08/04/16 08:02 250 MG Tobramycin Sulfate (Tobrex Oph Soln) 1 drops DAILY OPL 08/02/16 09:00 08/12/16 08:59 08/04/16 07:59 1 DROPS Insulin Aspart (novoLOG ASPART) SLIDING SCALE If C... ACHS SC 08/02/16 11:00 09/01/16 10:59 08/04/16 18:02 4 UNITS Glucose (Glucose 40% Gel) 15-30 GRAMS 15 GRAMS... UD PRN PO 08/02/16 08:45 09/01/16 08:44 Glucose (Glucose Chew Tab) 4-8 Tablets 4 Tabl... UD PRN PO 08/02/16 08:45 09/01/16 08:44 08/03/16 11:13 4 TABS Dextrose (Dextrose 50% 50ML Syringe) 25-50ML OF 50% DW IV FOR... UD PRN IV 08/02/16 08:45 09/01/16 08:44 Glucagon (Glucagon Inj) 1 mg UD PRN SQ 08/02/16 08:45 09/01/16 08:44 Acetaminophen/ Hydrocodone Bitart ([place] 5/325 Tab) 1 tab Q8 PRN PO 08/02/16 08:45 08/16/16 08:44 08/04/16 11:21 1 TAB Albuterol/ Ipratropium (Duoneb) 3 ml Q4R PRN INH 08/02/16 08:45 09/01/16 08:44 Guaifenesin (Organidin Nr Tab) 200 mg Q8 PRN PO 08/02/16 08:45 09/01/16 08:44 Sevelamer HCl (Renvela) 800 mg AC PO 08/02/16 16:15 09/01/16 16:14 08/04/16 16:15 800 MG Clonidine HCl (Catapres Tab) 0.1 mg Q6H PRN PO 08/02/16 12:00 09/01/16 11:59 Miscellaneous Information (Consult Glycemic Management Pharmacy) 1 ea UD PRN N/A 08/02/16 14:11 09/01/16 14:10 Metoprolol Succinate (Toprol Xl Tab) 12.5 mg BID PO 08/02/16 21:00 09/01/16 20:59 08/04/16 14:54 12.5 MG Piperacillin Sod/ Tazobactam Sod (Consult) 1 ea UD PRN N/A 08/02/16 20:15 09/01/16 20:14 Piperacillin Sod/ Tazobactam Sod 3.375 gm/Dextrose 115 ml @ 28.75 mls/ hr Q12H IV 08/03/16 04:00 08/13/16 03:59 08/04/16 18:00 28.75 MLS/HR Albuterol (Ventolin Hfa Inhaler) 2 puffs Q6H PRN INH 08/03/16 09:00 09/02/16 08:59 Insulin Glargine (Lantus Solostar Pen) 25 unit QPM SC 08/04/16 21:00 09/03/16 20:59 Vitamin B Complex/ Vit C/Folic Acid (Nephrocaps) 1 cap QAM PO 08/05/16 09:00 09/04/16 08:59 Calcitriol (Rocaltrol Cap) 0.5 mcg TuThSa@0900 PO 08/04/16 11:00 09/03/16 10:59 08/04/16 11:21 0.5 MCG
--- NOTE | 2016-08-04 20:41 | DIAGNOSTIC IMAGING REPORT ---
CT SCAN OF THE RIGHT UPPER EXTREMITY WITHOUT IV CONTRAST CLINICAL HISTORY: Wrist pain. No history of trauma. COMPARISON STUDY: Radiographs of the right wrist dated 08/02/2016. TECHNIQUE: CT scan of the right upper extremity is performed from the mid radius and ulna to the fingers. Images are reviewed in the axial, sagittal, and coronal planes. IV contrast was not administered for this examination. 3-D reformats are created and assessed. The examination is degraded by suboptimal positioning. FINDINGS: The skeletal structures are well mineralized. No fracture is identified in the visualized right upper extremity. The joint spaces of the wrist appear maintained. No erosive change is seen. There is advanced atherosclerotic calcification of the regional arteries. Indeterminant soft tissue calcifications are identified between the pisiform and the hook of the hamate and may be intramuscular in location. The overlying soft tissues are otherwise normal as visualized. No fluid collection is suggested. IMPRESSION: 1. No fracture is identified in the right wrist or hand. 2. There is advanced atherosclerotic calcification of the regional arteries. 3. 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 Clinical correlation will be essential. Dictated: 08/04/2016 5:44 PM Transcribed: 08/04/2016 8:41 PM MARK ANTHONY_Kate Electronically signed by: Vahid Garrido M.D. 08/04/2016 8:46 PM Dictated Date/Time: 08/04/2016 5:44 PM
[2016-08-04] MEDS ORDERED: INSULIN GLARGINE SOLOSTAR 100 UNITS/ML 3 ML PEN SC SCH (21:00)
[2016-08-05 04:28] VITALS: BP 136/85; PULSE 71; TEMP 36.7; O2SAT 94
[2016-08-05] MEDS: PIPERACILL/TAZOBAC IV 3.375 GM in DEXTROSE 5% 100ML IV SCH ×2 (04:28→16:13)
[2016-08-05 06:31] LABS: HEMATOCRIT 32.4 % (42-52); MEAN CELL VOLUME 89.5 fL (80-100); MEAN CORPUSCULAR HEMOGLOBIN 28.7 pg (25-34); MEAN CORPUSCULAR HGB CONC 32.1 g/dl (32-36); MEAN PLATELET VOLUME 11.1 fL (7.4-10.4); PLATELET COUNT 247 K/uL (130-400); RED BLOOD COUNT 3.62 M/uL (4.7-6.1); WHITE BLOOD COUNT 9.58 K/uL (4.8-10.8)
[2016-08-05] MEDS: RENVELA 800 MG PO SCH ×3 (07:00→16:15)
[2016-08-05 07:18] LABS: BLOOD UREA NITROGEN 154 mg/dl (7-18); CARBON DIOXIDE 23 mmol/L (21-32); CHLORIDE 97 mmol/L (98-107); GLUCOSE 70 mg/dl (70-99); PHOSPHORUS 8.8 mg/dl (2.5-4.9); POTASSIUM 4.1 mmol/L (3.5-5.1); SODIUM 136 mmol/L (136-145)
[2016-08-05 07:29] LABS: CALCIUM 10.1 mg/dl (8.5-10.1)
[2016-08-05] MEDS: ISOSORBIDE DINITRATE 20 MG TAB PO SCH ×2 (07:47→11:23)
[2016-08-05 08:00] VITALS: BP 138/86; PULSE 69; TEMP 36.8; O2SAT 97
[2016-08-05] MEDS: NEPHROCAPS PO SCH (08:57)
[2016-08-05] MEDS: CYCLOBENZAPRINE HCL 10 MG TAB PO SCH (08:58)
[2016-08-05] MEDS: METOPROLOL SUCC 25MG EXT REL TAB PO SCH ×2 (08:58→21:09)
[2016-08-05] MEDS: ASPIRIN 81 MG ECTAB PO SCH (08:58)
[2016-08-05] MEDS: METOLAZONE 5 MG TAB PO SCH (08:59)
[2016-08-05] MEDS: TORSEMIDE 20 MG TAB PO SCH ×2 (08:59→16:46)
[2016-08-05] MEDS: TOBRAMYCIN SULF 0.3% OP SOLN 5 ML BTL OPL SCH (09:00)
[2016-08-05] MEDS: SPIRONOLACTONE 25 MG TAB PO SCH (09:00)
[2016-08-05] MEDS: INSULIN ASPART 100 UNITS/ML 3 ML PEN SC SCH ×4 (09:08→21:00)
[2016-08-05] MEDS ORDERED: CYCLOBENZAPRINE HCL 10 MG TAB PO PRN (10:45)
--- NOTE | 2016-08-05 11:10 | Progress Note ---
Medicine Progress Note Date & Time of Visit: Aug 05, 2016 at 10:28. Subjective 41 yo diabetic male with HTN, CAD, cardiomyopathy and ESRD recently started on HD yesterday who presented a few days ago with chest pain though 2/2 uncontrolled BP. Cards has titrated meds and BP is better controlled with resolution of chest pain. There is some discomfort per patient from the perm cath in the L anterior chest wall placed 08/03 for HD, but this is manageable. He also reports pain in his R hand and wrist around a wound that is present just prox to R wrist which has been present for 2 weeks now. There is also numbness in an ulnar distribution and patient cannot move 5th finger well- limited function. He denies fevers, chills and toelrated breakfast this morning. L buttock pain is OK regarding the wound, however, he reports some sciatica with radiculopathy "like a lightning bolt" extending posteriorly to his L foot. The Flexeril is not helping and he states that he has tried gabapentin in the past but reports "too many side effects" We discussed the possibility of switching to a benzo and he declined citing "too many side effects." He tolerated HD without issue yesterday and states that he is going home tomorrow no matter what. Objective Last 8 Hrs Date Time Temp Pulse Resp B/P (MAP) Pulse Ox O2 Delivery O2 Flow Rate FiO2 08/05/16 08:00 Room Air 08/05/16 08:00 36.8 69 18 138/86 (103) 97 Room Air 08/05/16 04:28 36.7 71 16 136/85 (102) 94 Room Air 08/05/16 04:00 Room Air Physical Exam: GEN: WNWD, in distress with movement but is able to get up on his feet and stand , alert and appropriate HEENT: NC/AT, pupils are equal and reactive, normal sclerae CARDIO: reg rate, S1/2 heard without m/g/r CHEST: L anterior perm cath in place covered with dressing, c/d/i LUNGS: crackles at L base, otherwise clear to auscultation bilaterally. ABD: +BS, soft, non-tender, non-distended, no rebound or guarding BUTTOCK: L medial wound with no surrounding erythema or drainage. Packing in place with wick exposed. EXTREMITY: no LE swelling or edema, extremities are warm and well-perfused, multiple lower extremity scabbing noted on lower legs L>R-no open wounds. There is a purplish macule with an irregular linear shape to it on R forearm just proximal to wrist. No drainage is noted and there is a central punctum as though bitten. No erythema around the wound but there is significant tenderness around it. NEURO: CN 2-12 grossly intact, sensation intact throughout with the following exceptions: weakness in ulnar distribution of R hand to just proximal of wound , weakness on tops of feet to ankles bilaterally, neg SLR bilaterally-very inflexible, cannot extend L knee fully because of pain in L hamstrings. R side is also negative and patient is more flexible on this side. Could not elicit reflexes in knees-each time of tap patient would jump and flex his quads. MUSC: 5/5 strength throughout, no focal deficits but limited movement 2/2 pain. Cane is noted at bedside. SKIN: warm and dry with changes noted above. Laboratory Results: 08/05/16 06:07 08/05/16 06:07 Test 08/02/16 05:35 08/02/16 11:18 08/02/16 17:17 08/02/16 18:00 Immature Granulocyte % (Auto) 0.2 % White Blood Count 12.64 K/uL (4.8-10.8) Red Blood Count 3.74 M/uL (4.7-6.1) Hemoglobin 10.8 g/dL (14.0-18.0) Hematocrit 33.4 % (42-52) Mean Corpuscular Volume 89.3 fL (80-100) Mean Corpuscular Hemoglobin 28.9 pg (25-34) Mean Corpuscular Hemoglobin Concent 32.3 g/dl (32-36) Platelet Count 282 K/uL (130-400) Mean Platelet Volume 11.0 fL (7.4-10.4) Neutrophils (%) (Auto) 71.0 % Lymphocytes (%) (Auto) 10.3 % Monocytes (%) (Auto) 15.3 % Eosinophils (%) (Auto) 2.6 % Basophils (%) (Auto) 0.6 % Neutrophils # (Auto) 8.97 K/uL (1.4-6.5) Lymphocytes # (Auto) 1.30 K/uL (1.2-3.4) Monocytes # (Auto) 1.94 K/uL (0.11-0.59) Eosinophils # (Auto) 0.33 K/uL (0-0.5) Basophils # (Auto) 0.07 K/uL (0-0.2) Immature Granulocyte # (Auto) 0.03 K/uL (0.00-0.02) Red Blood Cell Morphology Unremarkable Prothrombin Time 12.5 SECONDS (9.0-12.0) Prothromb Time International Ratio 1.2 (0.9-1.1) Total Bilirubin 1.0 mg/dl (0.2-1) Aspartate Amino Transf (AST/SGOT) 18 U/L (15-37) Alanine Aminotransferase (ALT/SGPT) 20 U/L (12-78) Alkaline Phosphatase 194 U/L (45-117) Total Creatine Kinase 177 U/L (39-308) Total Protein 8.7 gm/dl (6.4-8.2) Globulin 5.8 gm/dl (2.5-4.0) Albumin/Globulin Ratio 0.5 (0.9-2) Estimated Average Glucose 186 mg/dl Hemoglobin A1c 8.1 % (4.5-5.6) Creatine Kinase MB 16.3 ng/ml (0.5-3.6) Creatine Kinase MB Ratio (0-3.0) Troponin I 0.231 ng/ml (0-0.045) Urine Color YELLOW Urine Appearance CLEAR (CLEAR) Urine pH 5.5 (4.5-7.5) Urine Specific [place] 1.014 (1.000-1.030) Urine Protein 2+ (NEG) Urine Glucose (UA) NEG (NEG) Urine Ketones NEG (NEG) Urine Occult Blood NEG (NEG) Urine Nitrite NEG (NEG) Urine Bilirubin NEG (NEG) Urine Urobilinogen NEG (NEG) Urine Leukocyte Esterase NEG (NEG) Urine WBC (Auto) 1-5 /hpf (0-5) Urine RBC (Auto) 0-4 /hpf (0-4) Urine Hyaline Casts (Auto) 0 /lpf (0-5) Urine Epithelial Cells (Auto) 0-5 /lpf (0-5) Urine Bacteria (Auto) NEG (NEG) Test 08/03/16 05:33 08/03/16 17:45 08/04/16 06:37 08/05/16 06:07 Magnesium Level 2.5 mg/dl (1.8-2.4) Hepatitis B Surface Antigen NEG (NEG) Hepatitis B Surface Antibody NEG Iron Level 33 mcg/dl (35-175) Total Iron Binding Capacity 283 mcg/dl (250-450) Transferrin 232 mg/dl (200-360) Transferrin % Saturation 10 % (20-50) Ferritin 92.6 ng/ml (8.0-388.0) Red Blood Count 3.62 M/uL (4.7-6.1) Mean Corpuscular Volume 89.5 fL (80-100) Mean Corpuscular Hemoglobin 28.7 pg (25-34) Mean Corpuscular Hemoglobin Concent 32.1 g/dl (32-36) RDW Standard Deviation 48.9 fL (36.4-46.3) RDW Coefficient of Variation 15.0 % (11.5-14.5) Mean Platelet Volume 11.1 fL (7.4-10.4) Anion Gap 16.0 mmol/L (3-11) Est Creatinine Clear Calc Drug Dose 15.7 ml/min Estimated GFR () 8.7 Estimated GFR (Non- 7.5 BUN/Creatinine Ratio (10-20) Calcium Level 10.1 mg/dl (8.5-10.1) Phosphorus Level 8.8 mg/dl (2.5-4.9) Albumin 2.5 gm/dl (3.4-5.0) Test 08/05/16 06:59 Bedside Glucose 72 mg/dl (70-99) Date/Time Source Procedure Growth Status 08/04/16 21:08 Blood Blood Culture Pending Received 08/03/16 00:00 Ulcer Buttock Left Gram Stain - Final Resulted 08/03/16 00:00 Ulcer Buttock Left Wound Culture Pending Resulted Last 24 Hours Test 08/04/16 11:09 08/04/16 16:13 08/04/16 20:18 08/05/16 06:07 Bedside Glucose 90 mg/dl 94 mg/dl 114 mg/dl White Blood Count 9.58 K/uL Red Blood Count 3.62 M/uL Hemoglobin 10.4 g/dL Hematocrit 32.4 % Mean Corpuscular Volume 89.5 fL Mean Corpuscular Hemoglobin 28.7 pg Mean Corpuscular Hemoglobin Concent 32.1 g/dl RDW Standard Deviation 48.9 fL RDW Coefficient of Variation 15.0 % Platelet Count 247 K/uL Mean Platelet Volume 11.1 fL Sodium Level 136 mmol/L Potassium Level 4.1 mmol/L Chloride Level 97 mmol/L Carbon Dioxide Level 23 mmol/L Anion Gap 16.0 mmol/L Blood Urea Nitrogen 154 mg/dl Creatinine 7.90 mg/dl Est Creatinine Clear Calc Drug Dose 15.7 ml/min Estimated GFR () 8.7 Estimated GFR (Non- 7.5 BUN/Creatinine Ratio Random Glucose 70 mg/dl Calcium Level 10.1 mg/dl Phosphorus Level 8.8 mg/dl Albumin 2.5 gm/dl Test 08/05/16 06:59 Bedside Glucose 72 mg/dl Date/Time Source Procedure Growth Status 08/04/16 21:08 Blood Blood Culture Pending Received 08/04/16 21:05 Blood Blood Culture Pending Received Assessment & Plan 41 yo diabetic male with HTN, CAD, cardiomyopathy and ESRD recently started on HD yesterday who presented a few days ago with chest pain though 2/2 uncontrolled BP. Cards has titrated meds and BP is better controlled with resolution of chest pain. 1. Right wrist wound with R hand ulnar numbness and circumferential pain and numbness around the wound. Pt denies trauma and suggests bugbite as the cause. Wound has been there for 10 days at this point per patient and he feels it is improving but numbness and decreased 5th finger function is very limiting. Ortho has been consulted for evaluation. 2. L buttock furuncle with spontaneous drainage at home 6 weeks ago--packing in place with no surrounding erythema and fevers/chills have resolved per patient. Elly and Charliero at this time-->change to Keflex per ID. Will need HH nursing for daily packing and home wound care as pt lives with girlfriend and states she will be unable to do this. 3. ESRD-perm cath placed 08/03 and first HD was yesterday, 08/04. No issues except some minor discomfort with the catheter. Next HD treatment is Mon. Cont per Nephro recs. 4. Chest pain in setting of h/o DMII, CAD and cardiomyopathy--resolved after titration of BP meds and better control of HTN 5. L buttock pain with radiculopathy x 4 weeks. On exam there is TTP of the L piriformis muscle and when patient changes position during exam he develops acute spasms that cause him severe pain. On SLR test he was noted to be extremely inflexible. PT was just in and he reports they showed him some stretching exercises. My initial impression is that this may be related to some compensation from the wound on his L buttock and trying to sit in strange positions to stay off of it. Cont Flexeril with increased dose and change to PRN. 6. Atypical chest pain-resolved with improvement of BP 7. Bronchitis-small area of crackles at R base, otherwise lungs are clear. Pt has persistent cough which is improved. Denies sore throat, fevers, chills, headache or earpain at this time. Was recently on Azithro as outpatient and continued on that here in the hospital. Cont this and supportive care for now. 8. Anemia-likely multifactorial 2/2 iron deficiency, ESRD and frequent phlebotomy in the hospital. Per Nephro, they may start Venofer, so will defer management to them at this time. Will need outpatient follow-up. 9. HTN-at goal on current meds 10. Chronic systolic heart failure-compensated. ICD in place. Cont medical management includingmetolazone, spironolactone and torsemide 11. DMII-A1C was 8.2 in May 2016. Currenlty controlled. Cont Lantus/ISS per glycemic pharmacist recs. DVT prophy-SCDs, per prior notes, patient reports episodes of nausea wtih heparin and declined heparin verbalizing understanding of the risks assoc woth hospital-acquired blood clots. CODE STATUS FULL CODE Dispo pending recently moved from [facility] to [facility] lives with mother currently in the process of establishing care in [facility] also will need to establish care with Pulmonary Care Nurse in [place], close to home- Dr. Wild arranging needs to establish care with a Watch [employer] Lily Díaz DO [facility] Hospitalist Consultants: Cards, Vascular Surgery, General Surgery, ID, Nephro, Ortho Current Inpatient Medications: Current Inpatient Medications Medications (Trade) Dose Ordered Sig/Niki Route Start Time Stop Time Status Last Admin Dose Admin Aspirin (Ecotrin Tab) 81 mg DAILY PO 08/02/16 09:00 09/01/16 08:59 08/05/16 08:58 81 MG Cyclobenzaprine HCl (Flexeril Tab) 5 mg TID PO 08/02/16 09:00 09/01/16 08:59 08/05/16 08:58 5 MG Hydralazine HCl (Apresoline Tab) 50 mg TID PO 08/02/16 09:00 09/01/16 08:59 08/05/16 08:59 50 MG Isosorbide Dinitrate (Isordil Tab) 20 mg BID@0700,1200 PO 08/02/16 12:00 09/01/16 11:59 08/05/16 07:47 20 MG Metolazone (Zaroxolyn Tab) 5 mg DAILY PO 08/02/16 09:00 09/01/16 08:59 08/05/16 08:59 5 MG Spironolactone (Aldactone Tab) 25 mg DAILY@0930 PO 08/02/16 09:30 09/01/16 09:29 08/05/16 09:00 25 MG Torsemide (Demadex Tab) 20 mg DAILY@1700 PO 08/02/16 17:00 09/01/16 16:59 08/03/16 16:38 20 MG Torsemide (Demadex Tab) 100 mg QAM PO 08/02/16 09:00 09/01/16 08:59 08/05/16 08:59 100 MG Tobramycin Sulfate (Tobrex Oph Soln) 1 drops DAILY OPL 08/02/16 09:00 08/12/16 08:59 08/05/16 09:00 1 DROPS Insulin Aspart (novoLOG ASPART) SLIDING SCALE If C... ACHS SC 08/02/16 11:00 09/01/16 10:59 08/05/16 09:08 3 UNITS Glucose (Glucose 40% Gel) 15-30 GRAMS 15 GRAMS... UD PRN PO 08/02/16 08:45 09/01/16 08:44 Glucose (Glucose Chew Tab) 4-8 Tablets 4 Tabl... UD PRN PO 08/02/16 08:45 09/01/16 08:44 08/03/16 11:13 4 TABS Dextrose (Dextrose 50% 50ML Syringe) 25-50ML OF 50% DW IV FOR... UD PRN IV 08/02/16 08:45 09/01/16 08:44 Glucagon (Glucagon Inj) 1 mg UD PRN SQ 08/02/16 08:45 09/01/16 08:44 Acetaminophen/ Hydrocodone Bitart ([place] 5/325 Tab) 1 tab Q8 PRN PO 08/02/16 08:45 08/16/16 08:44 08/04/16 11:21 1 TAB Albuterol/ Ipratropium (Duoneb) 3 ml Q4R PRN INH 08/02/16 08:45 09/01/16 08:44 Guaifenesin (Organidin Nr Tab) 200 mg Q8 PRN PO 08/02/16 08:45 09/01/16 08:44 08/05/16 08:57 200 MG Sevelamer HCl (Renvela) 800 mg AC PO 08/02/16 16:15 09/01/16 16:14 08/05/16 07:00 800 MG Clonidine HCl (Catapres Tab) 0.1 mg Q6H PRN PO 08/02/16 12:00 09/01/16 11:59 Miscellaneous Information (Consult Glycemic Management Pharmacy) 1 ea UD PRN N/A 08/02/16 14:11 09/01/16 14:10 Metoprolol Succinate (Toprol Xl Tab) 12.5 mg BID PO 08/02/16 21:00 09/01/16 20:59 08/05/16 08:58 12.5 MG Piperacillin Sod/ Tazobactam Sod (Consult) 1 ea UD PRN N/A 08/02/16 20:15 09/01/16 20:14 Piperacillin Sod/ Tazobactam Sod 3.375 gm/Dextrose 115 ml @ 28.75 mls/ hr Q12H IV 08/03/16 04:00 08/13/16 03:59 08/05/16 04:28 28.75 MLS/HR Albuterol (Ventolin Hfa Inhaler) 2 puffs Q6H PRN INH 08/03/16 09:00 09/02/16 08:59 Vitamin B Complex/ Vit C/Folic Acid (Nephrocaps) 1 cap QAM PO 08/05/16 09:00 09/04/16 08:59 08/05/16 08:57 1 CAP Calcitriol (Rocaltrol Cap) 0.5 mcg TuThSa@0900 PO 08/04/16 11:00 09/03/16 10:59 08/04/16 11:21 0.5 MCG Insulin Glargine (Lantus Solostar Pen) 20 unit QPM SC 08/05/16 21:00 09/04/16 20:59
--- NOTE | 2016-08-05 11:38 | Surgery Progress Note ---
Surgery Progress Note Date of Service Aug 05, 2016. Subjective No acute changes Objective Vital Signs: Date Time Temp Pulse Resp B/P (MAP) Pulse Ox O2 Delivery O2 Flow Rate FiO2 08/05/16 08:00 Room Air 08/05/16 08:00 36.8 69 18 138/86 (103) 97 Room Air 08/05/16 04:28 36.7 71 16 136/85 (102) 94 Room Air 08/05/16 04:00 Room Air 08/05/16 00:00 Room Air 08/04/16 23:47 36.8 71 18 137/81 (99) 97 Room Air 08/04/16 20:00 Room Air 08/04/16 19:28 36.5 72 18 134/73 (93) 96 08/04/16 16:00 95 Room Air 08/04/16 15:48 36.4 08/04/16 15:04 72 18 143/78 (99) 98 Room Air 08/04/16 14:20 36.7 72 164/87 (112) 08/04/16 14:15 73 149/89 08/04/16 14:00 75 153/88 08/04/16 13:45 75 151/90 08/04/16 13:30 73 154/95 08/04/16 13:15 72 153/93 08/04/16 13:00 72 156/96 08/04/16 12:45 72 155/100 08/04/16 12:30 72 161/96 08/04/16 12:15 72 157/101 08/04/16 12:00 36.8 72 162/72 (102) 08/04/16 12:00 97 Room Air 08/04/16 11:57 36.7 76 16 154/95 (114) 97 Laboratory Results: Results Past 24 Hours Test 08/04/16 16:13 08/04/16 20:18 08/05/16 06:07 08/05/16 06:59 Range/Units Bedside Glucose 94 114 72 70-99 mg/dl White Blood Count 9.58 4.8-10.8 K/uL Red Blood Count 3.62 4.7-6.1 M/uL Hemoglobin 10.4 14.0-18.0 g/dL Hematocrit 32.4 42-52 % Mean Corpuscular Volume 89.5 80-100 fL Mean Corpuscular Hemoglobin 28.7 25-34 pg Mean Corpuscular Hemoglobin Concent 32.1 32-36 g/dl RDW Standard Deviation 48.9 36.4-46.3 fL RDW Coefficient of Variation 15.0 11.5-14.5 % Platelet Count 247 130-400 K/uL Mean Platelet Volume 11.1 7.4-10.4 fL Sodium Level 136 136-145 mmol/L Potassium Level 4.1 3.5-5.1 mmol/L Chloride Level 97 98-107 mmol/L Carbon Dioxide Level 23 21-32 mmol/L Anion Gap 16.0 3-11 mmol/L Blood Urea Nitrogen 154 7-18 mg/dl Creatinine 7.90 0.60-1.40 mg/dl Est Creatinine Clear Calc Drug Dose 15.7 ml/min Estimated GFR () 8.7 Estimated GFR (Non- 7.5 BUN/Creatinine Ratio 10-20 Random Glucose 70 70-99 mg/dl Calcium Level 10.1 8.5-10.1 mg/dl Phosphorus Level 8.8 2.5-4.9 mg/dl Albumin 2.5 3.4-5.0 gm/dl Test 08/05/16 11:15 Range/Units Bedside Glucose 82 70-99 mg/dl Microbiology Results 08/04/16 Blood Culture, Received Pending 08/04/16 Blood Culture, Received Pending Assessment & Plan 08/05/16- Urgent surgical intervention not indicated cont with current plan and outpt followup 08/04/16- pt would like f/u with Dr Briceno when discharged 08/04/16- pt would like f/u with Dr Briceno when discharged
--- NOTE | 2016-08-05 11:41 | Pharmacy Progress Note ---
Glycemic Control Progress Note Date of Service Aug 05, 2016. Scope Glycemic Pharmacist consulted for glycemic control to write orders per [facility] inpatient glycemic control protocol. Objective Accuchecks BSG (last 24hrs): Test 08/04/16 16:13 08/04/16 20:18 08/05/16 06:07 08/05/16 06:59 Bedside Glucose 94 mg/dl (70-99) 114 mg/dl (70-99) 72 mg/dl (70-99) Random Glucose 70 mg/dl (70-99) Test 08/05/16 11:15 Bedside Glucose 82 mg/dl (70-99) HbA1c: Test 08/02/16 11:18 Hemoglobin A1c 8.1 % (4.5-5.6) H Recent Pertinent Medications The patient is currently receiving: * Basal insulin: Lantus 25 units every 24 hours given at bedtime * Correctional Insulin: Novolog Correction per scale ACHS Goal Range: Low 110 mg/dL - High 150 mg/dL Correction Factor: 25 mg/dL/unit * Prandial insulin: Per carb ratio of 1 unit per 9 grams CHO consumed Outpatient Anti-Diabetic Meds Basal Insulin Bolus Insulin Total daily outpatient dose = 68-80 units/day Assessment & Plan ASSESSMENT: * See progress note from 08/02 for more background info, in short: * Pt receiving SQ basal bolus insulin regimen for hyperglycemia secondary to baseline DM,stress/infection, recent surgery {cardiac cath [employer]}, * Patient is currently receiving an average of 30-40 units of insulin per day. This is less than outpatient dosing of 68-80units/day most likely d/t controlled CHO intake hospital diet, insulin sensitivity changes with starting HD, ?non-compliance as an outpatient? * BSGs 73, 90, 94, 114, 72 mg/dl over the past 24hrs * Changes needed to insulin regimen: * AM Fasting BSG = 72 mg/dl. This is slightly below goal range for patient based on inpatient targets and co-morbidities. Therefore Basal insulin needs decreased. Current dosing is already decreased as compared to outpatient dosing but further decrease warranted based on AM fasting BSG trends * Post-prandial BSGs are in range therefore no changes needed to CF/CR. PLAN FOR INPATIENT GLYCEMIC CONTROL: * Basal insulin * Decrease Lantus from 25 to 20 units units SQ HS * Bolus insulin: No change * NovoLog per scale ACHS or Q6hrs while NPO * Goal Range: Low 110 mg/dL - High 150 mg/dL * Correction Factor: 25 mg/dL/unit * Nutritional / Prandial insulin per carb ratio of 1 unit per 9 grams CHO consumed * Please note that the plan above was derived based on current level of insulin resistance and hospital stress. These recommendations are appropriate for inpatient admission only. Plan of care upon discharge will need to be reassessed to avoid potential outpatient hypo/hyperglycemia. Thank you.
[2016-08-05 12:00] VITALS: BP 127/76; PULSE 68; TEMP 36.4; O2SAT 96
--- NOTE | 2016-08-05 12:01 | Nephrology Progress Note ---
Nephrology Progress Note Date of Service Aug 05, 2016. Chief Complaint Follow-up for end-stage renal disease. Iraida Coronado Was seen and examined in his room this morning. He was lying in bed, mention that the pain and the tunnel dialysis catheter site improved. He had 1st dialysis treatment yesterday for 2 hours tolerated well without any adverse effects. BUN improved to 154 from 183, other electrolyte acceptable. Currently blood pressure and volume status stable. Continues to make decent amount of urine. Review of Systems A complete review of systems was performed. Pertinent positives are noted above. All other systems are negative. Vital Signs Last 8 Hrs Date Time Temp Pulse Resp B/P (MAP) Pulse Ox O2 Delivery O2 Flow Rate FiO2 08/05/16 08:00 Room Air 08/05/16 08:00 36.8 69 18 138/86 (103) 97 Room Air 08/05/16 04:28 36.7 71 16 136/85 (102) 94 Room Air 08/05/16 04:00 Room Air Last Recorded Weight Weight (Kilograms): 103.300 Physical Exam GENERAL: Middle-aged male , AAA x 3, in no distress. NECK: Supple, no JVD. CHEST: Left IJ tunnel dialysis catheter, area mildly tender but no significant swelling, erythema or bleeding. RESPIRATORY: Normal breathing efforts, no accessory muscle use, clear to auscultation bilaterally, no wheezes or rales. CARDIOVASCULAR: S1, S2 normal, rate rhythm regular. EXTREMITY: No lower extremity edema NEURO: speech fluent. PSYCHIATRY: Normal mood and judgment Family History Patient reports no known family medical history. Social History Marital Status: single Occupation: unemployed Laboratory Results Past 24 Hours 08/05/16 06:07 08/05/16 06:07 Test 08/04/16 16:13 08/04/16 20:18 08/05/16 06:07 08/05/16 06:59 Bedside Glucose 94 mg/dl (70-99) 114 mg/dl (70-99) 72 mg/dl (70-99) Red Blood Count 3.62 M/uL (4.7-6.1) Mean Corpuscular Volume 89.5 fL (80-100) Mean Corpuscular Hemoglobin 28.7 pg (25-34) Mean Corpuscular Hemoglobin Concent 32.1 g/dl (32-36) RDW Standard Deviation 48.9 fL (36.4-46.3) RDW Coefficient of Variation 15.0 % (11.5-14.5) Mean Platelet Volume 11.1 fL (7.4-10.4) Anion Gap 16.0 mmol/L (3-11) Est Creatinine Clear Calc Drug Dose 15.7 ml/min Estimated GFR () 8.7 Estimated GFR (Non- 7.5 BUN/Creatinine Ratio (10-20) Calcium Level 10.1 mg/dl (8.5-10.1) Phosphorus Level 8.8 mg/dl (2.5-4.9) Albumin 2.5 gm/dl (3.4-5.0) Test 08/05/16 11:15 Bedside Glucose 82 mg/dl (70-99) Allergies Coded Allergies: Cat Dander (Verified Allergy, Intermediate, RESPIRATORY SX, 08/02/16) Dust (Verified Allergy, Intermediate, ASTHMA SYMPTOMS, 08/02/16) Heparin (Verified Allergy, Intermediate, GI SYMPTOMS, 08/02/16) Unclassified Drugs (Verified Allergy, Unknown, SOB/COUGH FROM CIGARETTE SMOKE, 08/05/16) Medications Current Inpatient Medications Medications (Trade) Dose Ordered Sig/Niki Route Start Time Stop Time Status Last Admin Dose Admin Aspirin (Ecotrin Tab) 81 mg DAILY PO 08/02/16 09:00 09/01/16 08:59 08/05/16 08:58 81 MG Hydralazine HCl (Apresoline Tab) 50 mg TID PO 08/02/16 09:00 09/01/16 08:59 08/05/16 08:59 50 MG Isosorbide Dinitrate (Isordil Tab) 20 mg BID@0700,1200 PO 08/02/16 12:00 09/01/16 11:59 08/05/16 11:23 20 MG Metolazone (Zaroxolyn Tab) 5 mg DAILY PO 08/02/16 09:00 09/01/16 08:59 08/05/16 08:59 5 MG Spironolactone (Aldactone Tab) 25 mg DAILY@0930 PO 08/02/16 09:30 09/01/16 09:29 08/05/16 09:00 25 MG Torsemide (Demadex Tab) 20 mg DAILY@1700 PO 08/02/16 17:00 09/01/16 16:59 08/03/16 16:38 20 MG Torsemide (Demadex Tab) 100 mg QAM PO 08/02/16 09:00 09/01/16 08:59 08/05/16 08:59 100 MG Tobramycin Sulfate (Tobrex Oph Soln) 1 drops DAILY OPL 08/02/16 09:00 08/12/16 08:59 08/05/16 09:00 1 DROPS Insulin Aspart (novoLOG ASPART) SLIDING SCALE If C... ACHS SC 08/02/16 11:00 09/01/16 10:59 08/05/16 09:08 3 UNITS Glucose (Glucose 40% Gel) 15-30 GRAMS 15 GRAMS... UD PRN PO 08/02/16 08:45 09/01/16 08:44 Glucose (Glucose Chew Tab) 4-8 Tablets 4 Tabl... UD PRN PO 08/02/16 08:45 09/01/16 08:44 08/03/16 11:13 4 TABS Dextrose (Dextrose 50% 50ML Syringe) 25-50ML OF 50% DW IV FOR... UD PRN IV 08/02/16 08:45 09/01/16 08:44 Glucagon (Glucagon Inj) 1 mg UD PRN SQ 08/02/16 08:45 09/01/16 08:44 Acetaminophen/ Hydrocodone Bitart ([place] 5/325 Tab) 1 tab Q8 PRN PO 08/02/16 08:45 08/16/16 08:44 08/04/16 11:21 1 TAB Albuterol/ Ipratropium (Duoneb) 3 ml Q4R PRN INH 08/02/16 08:45 09/01/16 08:44 Guaifenesin (Organidin Nr Tab) 200 mg Q8 PRN PO 08/02/16 08:45 09/01/16 08:44 08/05/16 08:57 200 MG Sevelamer HCl (Renvela) 800 mg AC PO 08/02/16 16:15 09/01/16 16:14 08/05/16 11:23 800 MG Clonidine HCl (Catapres Tab) 0.1 mg Q6H PRN PO 08/02/16 12:00 09/01/16 11:59 Miscellaneous Information (Consult Glycemic Management Pharmacy) 1 ea UD PRN N/A 08/02/16 14:11 09/01/16 14:10 Metoprolol Succinate (Toprol Xl Tab) 12.5 mg BID PO 08/02/16 21:00 09/01/16 20:59 08/05/16 08:58 12.5 MG Piperacillin Sod/ Tazobactam Sod (Consult) 1 ea UD PRN N/A 08/02/16 20:15 09/01/16 20:14 Piperacillin Sod/ Tazobactam Sod 3.375 gm/Dextrose 115 ml @ 28.75 mls/ hr Q12H IV 08/03/16 04:00 08/13/16 03:59 08/05/16 04:28 28.75 MLS/HR Albuterol (Ventolin Hfa Inhaler) 2 puffs Q6H PRN INH 08/03/16 09:00 09/02/16 08:59 Vitamin B Complex/ Vit C/Folic Acid (Nephrocaps) 1 cap QAM PO 08/05/16 09:00 09/04/16 08:59 08/05/16 08:57 1 CAP Calcitriol (Rocaltrol Cap) 0.5 mcg TuThSa@0900 PO 08/04/16 11:00 09/03/16 10:59 08/04/16 11:21 0.5 MCG Insulin Glargine (Lantus Solostar Pen) 20 unit QPM SC 08/05/16 21:00 09/04/16 20:59 Cyclobenzaprine HCl (Flexeril Tab) 10 mg TID PRN PO 08/05/16 10:45 09/04/16 10:44 Impression (1) CKD (chronic kidney disease), stage IV (2) Chest pain (3) Sciatica (4) Anemia (5) Idiopathic cardiomyopathy Cliff is a 41-year-old male with idiopathic cardiomyopathy, history of ventricular arrhythmia, hypertension, diabetes mellitus, and chronic kidney disease class V A3. Cliff has ESRD with significant azotemia, early signs of uremia and hypervolemia. I suspect he will feel better starting hemodialysis at this time. He does plan to transition to PD in the near future once PD catheter is placed. Recommendations -- plan for next hemodialysis treatment tomorrow for 3 hours, [facility] dialysis center with low blood flow considering significant azotemia -- Outpatient HD to be arranged at [facility] under the care of Dr. Barrios -- Repeat metabolic profile in AM -- Renal diet -- Nephrocaps once a day -- start on Venofer.
--- NOTE | 2016-08-05 15:11 | ORTHOPEDIC CONSULTATION ---
DATE OF CONSULTATION: 08/05/2016 HISTORY OF PRESENT ILLNESS: This is a 41-year-old right-hand dominant gentleman who complains of right upper extremity weakness, pain and feeling of "cotton sensation" of his right palm, particularly the fourth and fifth digits and the palm extending proximally just proximal to the wrist crease. He has also noted a lesion that formed approximately 2 weeks ago on his right ulnar aspect of the wrist. He denies any trauma, denies any loss of consciousness. He did recently moved from [place] to [place] to live with his mother and he is on hemodialysis for end-stage renal disease. He notes no lesions or other trauma that he can recall to the right upper extremity. He has noted some weakness in the hand as well. PAST MEDICAL HISTORY: Atrial fibrillation, hypertension, chronic kidney disease stage V, cardiomyopathy, diabetes mellitus since approximately 1994. PAST SURGICAL HISTORY: Indwelling [id number] and defibrillator placed, cardiac catheterization. ALLERGIES: CAT DANDER, DUST, AND HEPARIN WITH GI SYMPTOMS, CIGARETTE SMOKE AND WEATHER CHANGES. MEDICATIONS: Please note the medications listed in the medical record. SOCIAL HISTORY: Denies tobacco, alcohol or drug use. He is a former smoker. He is single. He is on disability and he just recently moved to [place] to live with his mother. PHYSICAL EXAMINATION: The right upper extremity demonstrates skin, an unidentifiable lesion on the ulnar aspect volar right wrist with tenderness to palpation. He is noted to have what appears to be muscular atrophy of the interosseous and lumbrical muscles of the right hand with no bruising or swelling. He has limited strength particularly with flexion and extension of the fourth and fifth digits and weakness of the interosseous and lumbrical muscle with strength testing. Radial and median nerve sensory and motor functions are intact. Ulnar nerve sensory and motor function intact. Diminished. He has dysesthesias over the ulnar aspect, ulnar half of the right hand and palm. Vicente's test is slow to reperfuse. Radiographs and CT scans reviewed demonstrating no obvious fractures. There are multiple atherosclerotic plaques noted in the hand and wrist. LABORATORY DATA: Reviewed. IMPRESSION: 1. Right arm ulnar nerve neuropraxia/neuropathy. 2. Muscular atrophy in the right hand, interosseous muscles. RECOMMENDATIONS: 1. MRI of the right hand and wrist. 2. EMG/nerve conduction study right upper extremity to assess function of radial, median and ulnar nerves. Will reassess after testing is completed. 3. Velcro wrist brace for comfort right wrist Thank you for the opportunity to consult in the care of this patient. CODEY
[2016-08-05 15:31] VITALS: BP 141/81; PULSE 67; TEMP 36.6; O2SAT 98
[2016-08-05 19:04] VITALS: BP 157/81; PULSE 70; TEMP 36.5; O2SAT 98
[2016-08-05] MEDS ORDERED: INSULIN GLARGINE SOLOSTAR 100 UNITS/ML 3 ML PEN SC SCH (21:00)
[2016-08-05] MEDS: HYDROCODONE/ACETAMOPHEN 5/325MG TAB PO PRN (21:16)
[2016-08-06] VITALS (20 sets, daily range): BP systolic 130–183; BP diastolic 76–107; PULSE 70–79; TEMP 36.2–36.8; O2SAT 98–99; BMI 28.7
[2016-08-06] MEDS: DOXYCYCLINE HYCLATE 100 MG CAP PO SCH ×3 (01:08→21:19)
[2016-08-06] MEDS ORDERED: IRON SUCROSE INJ 200 MG in SYRINGE 0 ML IV SCH (06:00)
[2016-08-06] MEDS: ISOSORBIDE DINITRATE 20 MG TAB PO SCH ×2 (07:00→14:18)
[2016-08-06] MEDS: RENVELA 800 MG PO SCH ×3 (07:59→17:02)
[2016-08-06] MEDS: TOBRAMYCIN SULF 0.3% OP SOLN 5 ML BTL OPL SCH (07:59)
[2016-08-06] MEDS: ASPIRIN 81 MG ECTAB PO SCH (08:00)
[2016-08-06] MEDS: NEPHROCAPS PO SCH (08:00)
[2016-08-06] MEDS: INSULIN ASPART 100 UNITS/ML 3 ML PEN SC SCH ×4 (08:02→21:00)
[2016-08-06 08:29] LABS: BASO % 0.9 %; COMPLETE YES; EOS % 5.3 %; HEMATOCRIT 32.4 % (42-52); IG% 0.3 %; LYMPH % 12.1 %; LYMPH ABS # 1.34 K/uL (1.2-3.4); MEAN CELL VOLUME 89.3 fL (80-100); MEAN CORPUSCULAR HEMOGLOBIN 30.6 pg (25-34); MEAN CORPUSCULAR HGB CONC 34.3 g/dl (32-36); MEAN PLATELET VOLUME 11.5 fL (7.4-10.4); MONO % 15.2 %; NEUT % 66.2 %; PLATELET COUNT 258 K/uL (130-400); RED BLOOD COUNT 3.63 M/uL (4.7-6.1); WHITE BLOOD COUNT 11.09 K/uL (4.8-10.8)
[2016-08-06] MEDS: METOPROLOL SUCC 25MG EXT REL TAB PO SCH ×2 (09:00→21:20)
[2016-08-06 09:19] LABS: CALCIUM 10.2 mg/dl (8.5-10.1); CREATININE 8.8 mg/dl (0.60-1.40); MAGNESIUM 2.6 mg/dl (1.8-2.4); POTASSIUM 4.4 mmol/L (3.5-5.1)
[2016-08-06 09:34] LABS: BUN/CREATININE RATIO 18.8 (10-20); PHOSPHORUS 8.3 mg/dl (2.5-4.9)
--- NOTE | 2016-08-06 09:36 | Pharmacy Progress Note ---
Glycemic Control Progress Note Date of Service Aug 06, 2016. Scope Glycemic Pharmacist consulted for glycemic control to write orders per formerly [facility] inpatient glycemic control protocol. Objective Accuchecks BSG (last 24hrs): Test 08/05/16 11:15 08/05/16 16:30 08/05/16 20:20 08/06/16 07:03 Bedside Glucose 82 mg/dl (70-99) 78 mg/dl (70-99) 145 mg/dl (70-99) 71 mg/dl (70-99) Test 08/06/16 08:08 Random Glucose 68 mg/dl (70-99) HbA1c: Test 08/02/16 11:18 Hemoglobin A1c 8.1 % (4.5-5.6) H Recent Pertinent Medications The patient is currently receiving: * Basal insulin: Lantus 20 units HS * Correctional Insulin: Novolog Correction per scale ACHS Goal Range: Low 110 mg/dL - High 150 mg/dL Correction Factor: 25 mg/dL/unit * Prandial insulin: Per carb ratio of 1 unit per 9 grams CHO consumed Outpatient Anti-Diabetic Meds Lantus 38 units PM Novolog 10-14 units TIDM Total daily dose = 68-80 units Assessment & Plan ASSESSMENT: * See progress note from 08/02 for more background info, in short: * Pt receiving SQ basal bolus insulin regimen for hyperglycemia secondary to baseline DM,stress/infection, recent surgery {cardiac cath DIRECTOR ASSET}, * Patient is currently receiving an average of ~30 units of insulin per day. This is less than outpatient dosing of 68-80units/day most likely d/t controlled CHO intake hospital diet, insulin sensitivity changes with starting HD, ?non-compliance as an outpatient? * BSGs 72, 82, 78, 145 mg/dl over the past 24hrs * Changes needed to insulin regimen: * AM Fasting BSG = 71 mg/dl. This is below goal range for patient based on inpatient targets and co-morbidities. Therefore Basal insulin needs decreased. Current dosing is already decreased as compared to outpatient dosing but further decrease warranted based on AM fasting BSG trends * Post-prandial BSGs remain euglycemic; however, with new HD schedule I would be more comfortable for BSGs to be ~100 mg/dL as inpatient. Loosen CF/CR significantly. PLAN FOR INPATIENT GLYCEMIC CONTROL: * Basal insulin * Decrease Lantus from 20 to 10 units units SQ HS * Bolus insulin: Loosen * NovoLog per scale ACHS or Q6hrs while NPO * Goal Range: Low 110 mg/dL - High 150 mg/dL * Correction Factor: 50 mg/dL/unit * Nutritional / Prandial insulin per carb ratio of 1 unit per 20 grams CHO consumed * Please note that the plan above was derived based on current level of insulin resistance and hospital stress. These recommendations are appropriate for inpatient admission only. Plan of care upon discharge will need to be reassessed to avoid potential outpatient hypo/hyperglycemia. Thank you.
--- NOTE | 2016-08-06 09:43 | Progress Note ---
Subjective Date of Service: Aug 06, 2016. Subjective wound culture with MRSA, changed to doxy, tolerating well. afebrile, wbc overall improved, zosyn stopped. undergoing local wound care. would like to follow in [place] at d/c as this is close to his home. no overnight events. Problem List Medical Problems: (1) Acute non-ST segment elevation myocardial infarction Status: Acute (2) Acute renal failure Status: Acute (3) Hypomagnesemia Status: Acute Objective Vital Signs Date Time Temp Pulse Resp B/P (MAP) Pulse Ox O2 Delivery O2 Flow Rate FiO2 08/06/16 07:37 36.4 73 19 147/82 (103) 98 Room Air 08/06/16 04:00 Room Air 08/06/16 03:23 36.6 72 20 152/90 (110) 99 Room Air 08/06/16 00:00 36.7 75 16 152/83 (106) 98 Room Air 08/06/16 00:00 Room Air 08/05/16 20:00 Room Air 08/05/16 19:04 36.5 70 16 157/81 (106) 98 08/05/16 16:00 Room Air 08/05/16 15:31 36.6 67 18 141/81 (101) 98 08/05/16 12:00 Room Air 08/05/16 12:00 36.4 68 18 127/76 (93) 96 Room Air Laboratory Results Item Value Date Time Blood Culture - Preliminary Resulted 08/04/162107 Blood NO GROWTH TO DATE. Blood Culture - Preliminary Resulted 08/04/162104 Blood NO GROWTH TO DATE. Gram Stain - Final Resulted 08/03/16 0000 Ulcer Buttock Left Last 24 Hours Test 08/05/16 11:15 08/05/16 16:30 08/05/16 20:20 08/06/16 07:03 Bedside Glucose 82 mg/dl 78 mg/dl 145 mg/dl 71 mg/dl Test 08/06/16 08:08 White Blood Count 11.09 K/uL Red Blood Count 3.63 M/uL Hemoglobin 11.1 g/dL Hematocrit 32.4 % Mean Corpuscular Volume 89.3 fL Mean Corpuscular Hemoglobin 30.6 pg Mean Corpuscular Hemoglobin Concent 34.3 g/dl Platelet Count 258 K/uL Mean Platelet Volume 11.5 fL Neutrophils (%) (Auto) 66.2 % Lymphocytes (%) (Auto) 12.1 % Monocytes (%) (Auto) 15.2 % Eosinophils (%) (Auto) 5.3 % Basophils (%) (Auto) 0.9 % Neutrophils # (Auto) 7.34 K/uL Lymphocytes # (Auto) 1.34 K/uL Monocytes # (Auto) 1.69 K/uL Eosinophils # (Auto) 0.59 K/uL Basophils # (Auto) 0.10 K/uL RDW Standard Deviation 49.0 fL RDW Coefficient of Variation 15.2 % Immature Granulocyte % (Auto) 0.3 % Immature Granulocyte # (Auto) 0.03 K/uL Sodium Level 136 mmol/L Potassium Level 4.4 mmol/L Chloride Level 97 mmol/L Carbon Dioxide Level 22 mmol/L Anion Gap 17.0 mmol/L Blood Urea Nitrogen 165 mg/dl Creatinine 8.80 mg/dl Est Creatinine Clear Calc Drug Dose 14.0 ml/min Estimated GFR () 7.7 Estimated GFR (Non- 6.6 BUN/Creatinine Ratio 18.8 Random Glucose 68 mg/dl Calcium Level 10.2 mg/dl Phosphorus Level 8.3 mg/dl Magnesium Level 2.6 mg/dl Albumin 2.7 gm/dl Assessment and Plan (1) Wound infection Assessment & Plan: agree with franky, especially with underlying renal disease, would give 21 days and suggest close follow up with wound center in [place] upon d/c. blood cultures negative. ok for d/c when medically stable.
[2016-08-06] MEDS: TORSEMIDE 20 MG TAB PO SCH ×2 (09:44→17:06)
[2016-08-06] MEDS: METOLAZONE 5 MG TAB PO SCH (09:46)
[2016-08-06] MEDS: SPIRONOLACTONE 25 MG TAB PO SCH (09:46)
--- NOTE | 2016-08-06 10:57 | Nephrology Progress Note ---
Nephrology Progress Note Date of Service Aug 06, 2016. Chief Complaint Follow-up for end-stage renal disease. Iraida Coronado was seen and examined in his room this morning. He has a lying in bed, otherwise comfortable. Denies any shortness of breath, chest pain. Pain at catheter area improved. Blood pressure, electrolyte volume status acceptable. Denies any nausea or vomiting. Review of Systems A complete review of systems was performed. Pertinent positives are noted above. All other systems are negative. Vital Signs Last 8 Hrs Date Time Temp Pulse Resp B/P (MAP) Pulse Ox O2 Delivery O2 Flow Rate FiO2 08/06/16 10:31 Room Air 08/06/16 10:29 36.5 71 18 183/107 (132) 99 Room Air 08/06/16 08:00 98 Room Air 08/06/16 07:37 36.4 73 19 147/82 (103) 98 Room Air 08/06/16 04:00 Room Air 08/06/16 03:23 36.6 72 20 152/90 (110) 99 Room Air Last Recorded Weight Weight (Kilograms): 101.700 Physical Exam GENERAL: Middle-aged male , AAA x 3, in no distress. NECK: Supple, no JVD. CHEST: Left IJ tunnel dialysis catheter, area mildly tender but no significant swelling, erythema or bleeding. RESPIRATORY: Normal breathing efforts, no accessory muscle use, clear to auscultation bilaterally, no wheezes or rales. CARDIOVASCULAR: S1, S2 normal, rate rhythm regular. EXTREMITY: No lower extremity edema NEURO: speech fluent. PSYCHIATRY: Normal mood and judgment Family History Patient reports no known family medical history. Social History Marital Status: single Occupation: unemployed Laboratory Results Past 24 Hours 08/06/16 08:08 Red Blood Count 3.63, Mean Corpuscular Volume 89.3, Mean Corpuscular Hemoglobin 30.6, Mean Corpuscular Hemoglobin Concent 34.3, Mean Platelet Volume 11.5, Neutrophils (%) (Auto) 66.2, Lymphocytes (%) (Auto) 12.1, Monocytes (%) (Auto) 15.2, Eosinophils (%) (Auto) 5.3, Basophils (%) (Auto) 0.9, Neutrophils # (Auto ) 7.34, Lymphocytes # (Auto) 1.34, Monocytes # (Auto) 1.69, Eosinophils # (Auto ) 0.59, Basophils # (Auto) 0.10 08/06/16 08:08 Test 08/05/16 11:15 08/05/16 16:30 08/05/16 20:20 08/06/16 07:03 Bedside Glucose 82 mg/dl (70-99) 78 mg/dl (70-99) 145 mg/dl (70-99) 71 mg/dl (70-99) Test 08/06/16 08:08 White Blood Count 11.09 K/uL (4.8-10.8) Red Blood Count 3.63 M/uL (4.7-6.1) Hemoglobin 11.1 g/dL (14.0-18.0) Hematocrit 32.4 % (42-52) Mean Corpuscular Volume 89.3 fL (80-100) Mean Corpuscular Hemoglobin 30.6 pg (25-34) Mean Corpuscular Hemoglobin Concent 34.3 g/dl (32-36) Platelet Count 258 K/uL (130-400) Mean Platelet Volume 11.5 fL (7.4-10.4) Neutrophils (%) (Auto) 66.2 % Lymphocytes (%) (Auto) 12.1 % Monocytes (%) (Auto) 15.2 % Eosinophils (%) (Auto) 5.3 % Basophils (%) (Auto) 0.9 % Neutrophils # (Auto) 7.34 K/uL (1.4-6.5) Lymphocytes # (Auto) 1.34 K/uL (1.2-3.4) Monocytes # (Auto) 1.69 K/uL (0.11-0.59) Eosinophils # (Auto) 0.59 K/uL (0-0.5) Basophils # (Auto) 0.10 K/uL (0-0.2) RDW Standard Deviation 49.0 fL (36.4-46.3) RDW Coefficient of Variation 15.2 % (11.5-14.5) Immature Granulocyte % (Auto) 0.3 % Immature Granulocyte # (Auto) 0.03 K/uL (0.00-0.02) Anion Gap 17.0 mmol/L (3-11) Est Creatinine Clear Calc Drug Dose 14.0 ml/min Estimated GFR () 7.7 Estimated GFR (Non- 6.6 BUN/Creatinine Ratio 18.8 (10-20) Calcium Level 10.2 mg/dl (8.5-10.1) Phosphorus Level 8.3 mg/dl (2.5-4.9) Magnesium Level 2.6 mg/dl (1.8-2.4) Albumin 2.7 gm/dl (3.4-5.0) Allergies Coded Allergies: Cat Dander (Verified Allergy, Intermediate, RESPIRATORY SX, 08/02/16) Dust (Verified Allergy, Intermediate, ASTHMA SYMPTOMS, 08/02/16) Heparin (Verified Allergy, Intermediate, GI SYMPTOMS, 08/02/16) Unclassified Drugs (Verified Allergy, Unknown, SOB/COUGH FROM CIGARETTE SMOKE, 08/05/16) Medications Current Inpatient Medications Medications (Trade) Dose Ordered Sig/Niki Route Start Time Stop Time Status Last Admin Dose Admin Aspirin (Ecotrin Tab) 81 mg DAILY PO 08/02/16 09:00 09/01/16 08:59 08/06/16 08:00 81 MG Hydralazine HCl (Apresoline Tab) 50 mg TID PO 08/02/16 09:00 09/01/16 08:59 08/05/16 21:10 50 MG Isosorbide Dinitrate (Isordil Tab) 20 mg BID@0700,1200 PO 08/02/16 12:00 09/01/16 11:59 08/05/16 11:23 20 MG Metolazone (Zaroxolyn Tab) 5 mg DAILY PO 08/02/16 09:00 09/01/16 08:59 08/06/16 09:46 5 MG Spironolactone (Aldactone Tab) 25 mg DAILY@0930 PO 08/02/16 09:30 09/01/16 09:29 08/06/16 09:46 25 MG Torsemide (Demadex Tab) 20 mg DAILY@1700 PO 08/02/16 17:00 09/01/16 16:59 08/05/16 16:46 20 MG Torsemide (Demadex Tab) 100 mg QAM PO 08/02/16 09:00 09/01/16 08:59 08/06/16 09:44 100 MG Tobramycin Sulfate (Tobrex Oph Soln) 1 drops DAILY OPL 08/02/16 09:00 08/12/16 08:59 08/06/16 07:59 1 DROPS Insulin Aspart (novoLOG ASPART) SLIDING SCALE If C... ACHS SC 08/02/16 11:00 09/01/16 10:59 08/06/16 08:02 5 UNITS Glucose (Glucose 40% Gel) 15-30 GRAMS 15 GRAMS... UD PRN PO 08/02/16 08:45 09/01/16 08:44 Glucose (Glucose Chew Tab) 4-8 Tablets 4 Tabl... UD PRN PO 08/02/16 08:45 09/01/16 08:44 08/03/16 11:13 4 TABS Dextrose (Dextrose 50% 50ML Syringe) 25-50ML OF 50% DW IV FOR... UD PRN IV 08/02/16 08:45 09/01/16 08:44 Glucagon (Glucagon Inj) 1 mg UD PRN SQ 08/02/16 08:45 09/01/16 08:44 Acetaminophen/ Hydrocodone Bitart ([place] 5/325 Tab) 1 tab Q8 PRN PO 08/02/16 08:45 08/16/16 08:44 08/05/16 21:16 1 TAB Albuterol/ Ipratropium (Duoneb) 3 ml Q4R PRN INH 08/02/16 08:45 09/01/16 08:44 Guaifenesin (Organidin Nr Tab) 200 mg Q8 PRN PO 08/02/16 08:45 09/01/16 08:44 08/05/16 08:57 200 MG Sevelamer HCl (Renvela) 800 mg AC PO 08/02/16 16:15 09/01/16 16:14 08/06/16 07:59 800 MG Clonidine HCl (Catapres Tab) 0.1 mg Q6H PRN PO 08/02/16 12:00 09/01/16 11:59 Miscellaneous Information (Consult Glycemic Management Pharmacy) 1 ea UD PRN N/A 08/02/16 14:11 09/01/16 14:10 Metoprolol Succinate (Toprol Xl Tab) 12.5 mg BID PO 08/02/16 21:00 09/01/16 20:59 08/05/16 21:09 12.5 MG Albuterol (Ventolin Hfa Inhaler) 2 puffs Q6H PRN INH 08/03/16 09:00 09/02/16 08:59 Vitamin B Complex/ Vit C/Folic Acid (Nephrocaps) 1 cap QAM PO 08/05/16 09:00 09/04/16 08:59 08/06/16 08:00 1 CAP Calcitriol (Rocaltrol Cap) 0.5 mcg TuThSa@0900 PO 08/04/16 11:00 09/03/16 10:59 08/04/16 11:21 0.5 MCG Cyclobenzaprine HCl (Flexeril Tab) 10 mg TID PRN PO 08/05/16 10:45 09/04/16 10:44 Iron Sucrose 200 mg/Syringe 10 ml @ 2 mls/min MoWeFr@0600 IV 08/06/16 06:00 08/15/16 18:00 Doxycycline Hyclate (Vibramycin Cap) 100 mg BID PO 08/05/16 23:15 08/15/16 23:14 08/06/16 09:45 100 MG Insulin Glargine (Lantus Solostar Pen) 15 unit QPM SC 08/06/16 21:00 09/05/16 20:59 Impression (1) CKD (chronic kidney disease), stage IV (2) Chest pain (3) Sciatica (4) Anemia (5) Idiopathic cardiomyopathy Cliff is a 41-year-old male with idiopathic cardiomyopathy, history of ventricular arrhythmia, hypertension, diabetes mellitus, and chronic kidney disease class V A3. Cliff has ESRD with significant azotemia, early signs of uremia and hypervolemia. I suspect he will feel better starting hemodialysis at this time. He does plan to transition to PD in the near future once PD catheter is placed. Recommendations -- hemodialysis this morning for 3 hours, [facility] dialysis center with low blood flow considering significant azotemia -- Outpatient HD to be arranged at [facility] under the care of Dr. Barrios -- Repeat metabolic profile in AM -- Renal diet -- Nephrocaps once a day -- continue on Venofer.
--- NOTE | 2016-08-06 13:26 | Progress Note ---
Medicine Progress Note Date & Time of Visit: Aug 06, 2016 at 10:50. Subjective 41 yo diabetic male with HTN, CAD, cardiomyopathy and ESRD recently started on HD yesterday who presented a few days ago with chest pain though 2/2 uncontrolled BP. Cards has titrated meds and BP is better controlled with resolution of chest pain. -denies any symptoms today -somewhat bothered by the placement of his HD catheter -tolerating PO -more ambulatory per his report today with back/buttock pain improved. -denies fevers, chills, no reports of cough or SOB today -overall feels improved -states that he would like to go home today. Objective Last 8 Hrs Date Time Temp Pulse Resp B/P (MAP) Pulse Ox O2 Delivery O2 Flow Rate FiO2 08/06/16 10:31 Room Air 08/06/16 10:29 36.5 71 18 183/107 (132) 99 Room Air 08/06/16 08:00 98 Room Air 08/06/16 07:37 36.4 73 19 147/82 (103) 98 Room Air 08/06/16 04:00 Room Air 08/06/16 03:23 36.6 72 20 152/90 (110) 99 Room Air Physical Exam: GEN: WNWD, in no acute distress, alert and appropriate HEENT: NC/AT,normal sclerae CARDIO: reg rate, S1/2 heard without m/g/r CHEST: L anterior perm cath in place covered with dressing, c/d/i, no erythema LUNGS: CTA bilaterally ABD: +BS, soft, non-tender, non-distended, no rebound or guarding BUTTOCK: L medial wound with no surrounding erythema or drainage. Packing in place with wick exposed. EXTREMITY: no LE swelling or edema, extremities are warm and well-perfused, multiple lower extremity scabbing noted on lower legs L>R-no open wounds. There is a purplish macule with an irregular linear shape to it on R forearm just proximal to wrist. No drainage is noted and there is a central punctum. No erythema around the wound but there is significant tenderness around it. NEURO: CN 2-12 grossly intact, sensation intact throughout with the following exceptions: weakness in ulnar distribution of R hand to just proximal of wound , weakness on tops of feet to ankles bilaterally. MUSC: moves all extremities equally SKIN: warm and dry with changes noted above. Laboratory Results: 08/06/16 08:08 Red Blood Count 3.63, Mean Corpuscular Volume 89.3, Mean Corpuscular Hemoglobin 30.6, Mean Corpuscular Hemoglobin Concent 34.3, Mean Platelet Volume 11.5, Neutrophils (%) (Auto) 66.2, Lymphocytes (%) (Auto) 12.1, Monocytes (%) (Auto) 15.2, Eosinophils (%) (Auto) 5.3, Basophils (%) (Auto) 0.9, Neutrophils # (Auto ) 7.34, Lymphocytes # (Auto) 1.34, Monocytes # (Auto) 1.69, Eosinophils # (Auto ) 0.59, Basophils # (Auto) 0.10 08/06/16 08:08 Test 08/02/16 05:35 08/02/16 11:18 08/02/16 17:17 08/02/16 18:00 Red Blood Cell Morphology Unremarkable Prothrombin Time 12.5 SECONDS (9.0-12.0) Prothromb Time International Ratio 1.2 (0.9-1.1) Total Bilirubin 1.0 mg/dl (0.2-1) Aspartate Amino Transf (AST/SGOT) 18 U/L (15-37) Alanine Aminotransferase (ALT/SGPT) 20 U/L (12-78) Alkaline Phosphatase 194 U/L (45-117) Total Creatine Kinase 177 U/L (39-308) Total Protein 8.7 gm/dl (6.4-8.2) Globulin 5.8 gm/dl (2.5-4.0) Albumin/Globulin Ratio 0.5 (0.9-2) Estimated Average Glucose 186 mg/dl Hemoglobin A1c 8.1 % (4.5-5.6) Creatine Kinase MB 16.3 ng/ml (0.5-3.6) Creatine Kinase MB Ratio (0-3.0) Troponin I 0.231 ng/ml (0-0.045) Urine Color YELLOW Urine Appearance CLEAR (CLEAR) Urine pH 5.5 (4.5-7.5) Urine Specific [place] 1.014 (1.000-1.030) Urine Protein 2+ (NEG) Urine Glucose (UA) NEG (NEG) Urine Ketones NEG (NEG) Urine Occult Blood NEG (NEG) Urine Nitrite NEG (NEG) Urine Bilirubin NEG (NEG) Urine Urobilinogen NEG (NEG) Urine Leukocyte Esterase NEG (NEG) Urine WBC (Auto) 1-5 /hpf (0-5) Urine RBC (Auto) 0-4 /hpf (0-4) Urine Hyaline Casts (Auto) 0 /lpf (0-5) Urine Epithelial Cells (Auto) 0-5 /lpf (0-5) Urine Bacteria (Auto) NEG (NEG) Test 08/03/16 17:45 08/04/16 06:37 08/06/16 08:08 08/06/16 11:49 Hepatitis B Surface Antigen NEG (NEG) Hepatitis B Surface Antibody NEG Iron Level 33 mcg/dl (35-175) Total Iron Binding Capacity 283 mcg/dl (250-450) Transferrin 232 mg/dl (200-360) Transferrin % Saturation 10 % (20-50) Ferritin 92.6 ng/ml (8.0-388.0) White Blood Count 11.09 K/uL (4.8-10.8) Red Blood Count 3.63 M/uL (4.7-6.1) Hemoglobin 11.1 g/dL (14.0-18.0) Hematocrit 32.4 % (42-52) Mean Corpuscular Volume 89.3 fL (80-100) Mean Corpuscular Hemoglobin 30.6 pg (25-34) Mean Corpuscular Hemoglobin Concent 34.3 g/dl (32-36) Platelet Count 258 K/uL (130-400) Mean Platelet Volume 11.5 fL (7.4-10.4) Neutrophils (%) (Auto) 66.2 % Lymphocytes (%) (Auto) 12.1 % Monocytes (%) (Auto) 15.2 % Eosinophils (%) (Auto) 5.3 % Basophils (%) (Auto) 0.9 % Neutrophils # (Auto) 7.34 K/uL (1.4-6.5) Lymphocytes # (Auto) 1.34 K/uL (1.2-3.4) Monocytes # (Auto) 1.69 K/uL (0.11-0.59) Eosinophils # (Auto) 0.59 K/uL (0-0.5) Basophils # (Auto) 0.10 K/uL (0-0.2) RDW Standard Deviation 49.0 fL (36.4-46.3) RDW Coefficient of Variation 15.2 % (11.5-14.5) Immature Granulocyte % (Auto) 0.3 % Immature Granulocyte # (Auto) 0.03 K/uL (0.00-0.02) Anion Gap 17.0 mmol/L (3-11) Est Creatinine Clear Calc Drug Dose 14.0 ml/min Estimated GFR () 7.7 Estimated GFR (Non- 6.6 BUN/Creatinine Ratio 18.8 (10-20) Calcium Level 10.2 mg/dl (8.5-10.1) Phosphorus Level 8.3 mg/dl (2.5-4.9) Magnesium Level 2.6 mg/dl (1.8-2.4) Albumin 2.7 gm/dl (3.4-5.0) Bedside Glucose 78 mg/dl (70-99) Date/Time Source Procedure Growth Status 08/04/16 21:08 Blood Blood Culture - Preliminary NO GROWTH TO DATE. Resulted 08/03/16 00:00 Ulcer Buttock Left Gram Stain - Final Complete 08/03/16 00:00 Wound Culture - Final Corynebacterium Species Staphylococcus Aureus Complete 08/06/16 08:08 Red Blood Count 3.63, Mean Corpuscular Volume 89.3, Mean Corpuscular Hemoglobin 30.6, Mean Corpuscular Hemoglobin Concent 34.3, Mean Platelet Volume 11.5, Neutrophils (%) (Auto) 66.2, Lymphocytes (%) (Auto) 12.1, Monocytes (%) (Auto) 15.2, Eosinophils (%) (Auto) 5.3, Basophils (%) (Auto) 0.9, Neutrophils # (Auto ) 7.34, Lymphocytes # (Auto) 1.34, Monocytes # (Auto) 1.69, Eosinophils # (Auto ) 0.59, Basophils # (Auto) 0.10 08/06/16 08:08 Test 08/02/16 05:35 08/02/16 11:18 08/02/16 17:17 08/02/16 18:00 Red Blood Cell Morphology Unremarkable Prothrombin Time 12.5 SECONDS (9.0-12.0) Prothromb Time International Ratio 1.2 (0.9-1.1) Total Bilirubin 1.0 mg/dl (0.2-1) Aspartate Amino Transf (AST/SGOT) 18 U/L (15-37) Alanine Aminotransferase (ALT/SGPT) 20 U/L (12-78) Alkaline Phosphatase 194 U/L (45-117) Total Creatine Kinase 177 U/L (39-308) Total Protein 8.7 gm/dl (6.4-8.2) Globulin 5.8 gm/dl (2.5-4.0) Albumin/Globulin Ratio 0.5 (0.9-2) Estimated Average Glucose 186 mg/dl Hemoglobin A1c 8.1 % (4.5-5.6) Creatine Kinase MB 16.3 ng/ml (0.5-3.6) Creatine Kinase MB Ratio (0-3.0) Troponin I 0.231 ng/ml (0-0.045) Urine Color YELLOW Urine Appearance CLEAR (CLEAR) Urine pH 5.5 (4.5-7.5) Urine Specific [place] 1.014 (1.000-1.030) Urine Protein 2+ (NEG) Urine Glucose (UA) NEG (NEG) Urine Ketones NEG (NEG) Urine Occult Blood NEG (NEG) Urine Nitrite NEG (NEG) Urine Bilirubin NEG (NEG) Urine Urobilinogen NEG (NEG) Urine Leukocyte Esterase NEG (NEG) Urine WBC (Auto) 1-5 /hpf (0-5) Urine RBC (Auto) 0-4 /hpf (0-4) Urine Hyaline Casts (Auto) 0 /lpf (0-5) Urine Epithelial Cells (Auto) 0-5 /lpf (0-5) Urine Bacteria (Auto) NEG (NEG) Test 08/03/16 17:45 08/04/16 06:37 08/06/16 07:03 08/06/16 08:08 Hepatitis B Surface Antigen NEG (NEG) Hepatitis B Surface Antibody NEG Iron Level 33 mcg/dl (35-175) Total Iron Binding Capacity 283 mcg/dl (250-450) Transferrin 232 mg/dl (200-360) Transferrin % Saturation 10 % (20-50) Ferritin 92.6 ng/ml (8.0-388.0) Bedside Glucose 71 mg/dl (70-99) White Blood Count 11.09 K/uL (4.8-10.8) Red Blood Count 3.63 M/uL (4.7-6.1) Hemoglobin 11.1 g/dL (14.0-18.0) Hematocrit 32.4 % (42-52) Mean Corpuscular Volume 89.3 fL (80-100) Mean Corpuscular Hemoglobin 30.6 pg (25-34) Mean Corpuscular Hemoglobin Concent 34.3 g/dl (32-36) Platelet Count 258 K/uL (130-400) Mean Platelet Volume 11.5 fL (7.4-10.4) Neutrophils (%) (Auto) 66.2 % Lymphocytes (%) (Auto) 12.1 % Monocytes (%) (Auto) 15.2 % Eosinophils (%) (Auto) 5.3 % Basophils (%) (Auto) 0.9 % Neutrophils # (Auto) 7.34 K/uL (1.4-6.5) Lymphocytes # (Auto) 1.34 K/uL (1.2-3.4) Monocytes # (Auto) 1.69 K/uL (0.11-0.59) Eosinophils # (Auto) 0.59 K/uL (0-0.5) Basophils # (Auto) 0.10 K/uL (0-0.2) RDW Standard Deviation 49.0 fL (36.4-46.3) RDW Coefficient of Variation 15.2 % (11.5-14.5) Immature Granulocyte % (Auto) 0.3 % Immature Granulocyte # (Auto) 0.03 K/uL (0.00-0.02) Anion Gap 17.0 mmol/L (3-11) Est Creatinine Clear Calc Drug Dose 14.0 ml/min Estimated GFR () 7.7 Estimated GFR (Non- 6.6 BUN/Creatinine Ratio 18.8 (10-20) Calcium Level 10.2 mg/dl (8.5-10.1) Phosphorus Level 8.3 mg/dl (2.5-4.9) Magnesium Level 2.6 mg/dl (1.8-2.4) Albumin 2.7 gm/dl (3.4-5.0) Date/Time Source Procedure Growth Status 08/04/16 21:08 Blood Blood Culture - Preliminary NO GROWTH TO DATE. Resulted 08/03/16 00:00 Ulcer Buttock Left Gram Stain - Final Complete 08/03/16 00:00 Wound Culture - Final Corynebacterium Species Staphylococcus Aureus Complete Last 24 Hours Test 08/05/16 11:15 08/05/16 16:30 08/05/16 20:20 08/06/16 07:03 Bedside Glucose 82 mg/dl 78 mg/dl 145 mg/dl 71 mg/dl Test 08/06/16 08:08 White Blood Count 11.09 K/uL Red Blood Count 3.63 M/uL Hemoglobin 11.1 g/dL Hematocrit 32.4 % Mean Corpuscular Volume 89.3 fL Mean Corpuscular Hemoglobin 30.6 pg Mean Corpuscular Hemoglobin Concent 34.3 g/dl Platelet Count 258 K/uL Mean Platelet Volume 11.5 fL Neutrophils (%) (Auto) 66.2 % Lymphocytes (%) (Auto) 12.1 % Monocytes (%) (Auto) 15.2 % Eosinophils (%) (Auto) 5.3 % Basophils (%) (Auto) 0.9 % Neutrophils # (Auto) 7.34 K/uL Lymphocytes # (Auto) 1.34 K/uL Monocytes # (Auto) 1.69 K/uL Eosinophils # (Auto) 0.59 K/uL Basophils # (Auto) 0.10 K/uL RDW Standard Deviation 49.0 fL RDW Coefficient of Variation 15.2 % Immature Granulocyte % (Auto) 0.3 % Immature Granulocyte # (Auto) 0.03 K/uL Sodium Level 136 mmol/L Potassium Level 4.4 mmol/L Chloride Level 97 mmol/L Carbon Dioxide Level 22 mmol/L Anion Gap 17.0 mmol/L Blood Urea Nitrogen 165 mg/dl Creatinine 8.80 mg/dl Est Creatinine Clear Calc Drug Dose 14.0 ml/min Estimated GFR () 7.7 Estimated GFR (Non- 6.6 BUN/Creatinine Ratio 18.8 Random Glucose 68 mg/dl Calcium Level 10.2 mg/dl Phosphorus Level 8.3 mg/dl Magnesium Level 2.6 mg/dl Albumin 2.7 gm/dl Assessment & Plan 41 yo diabetic male with HTN, CAD, cardiomyopathy and ESRD recently started on HD yesterday who presented a few days ago with chest pain though 2/2 uncontrolled BP. Cards has titrated meds and BP is better controlled with resolution of chest pain. 1. Right wrist wound with R hand ulnar numbness and circumferential pain and numbness around the wound. Pt denies trauma and suggests bugbite as the cause. Wound has been there for 1-2 weeks at this point per patient and he feels it is improving but numbness and decreased 5th finger function is very limiting. Ortho has been consulted for evaluation and recommends MRI but we cannot do that because of his ICD. Neuro was initially consulted for evaluation and possible NCV/EMG however, this is something they do only as an outpatient. I will give him instructions to follow-up with them at discharge. 2. L buttock furuncle with spontaneous drainage at home 6 weeks ago--packing in place with no surrounding erythema and fevers/chills have resolved per patient. Zosyn and Azithro initially->changes to Keflex per ID-->after wound culture revealed GPCs he was changed to doxy last night. MRSA positive this morning. Per ID will cont 21 days of doxy as outpatient. Cont daily packing changes per wound care through home health. Will need nursing for daily packing and home wound care as pt lives with girlfriend and states she will be unable to do this. Will need to follow-up with Dr. Briceno as outpatient in one week. 3. ESRD-perm cath placed 08/03 and first HD was 08/04. No issues except some minor discomfort with the catheter next to his nipple. Next HD treatment is today. Cont per Nephro recs. Appreciate CM assistance with setting up transportation to and from outpatient as patient states that his cataracts have left him unable to drive. 4. Chest pain in setting of h/o DMII, CAD and cardiomyopathy--resolved after titration of BP meds and better control of HTN 5. L buttock pain with radiculopathy x 4 weeks. On exam there was TTP of the L piriformis muscle and when patient changes position during exam he develops acute spasms that cause him severe pain. On SLR test he was noted to be extremely inflexible but SLR test was negative. He reports PT showed him some stretching exercises. My initial impression is that this may be related to some compensation from the wound on his L buttock and trying to sit in strange positions to stay off of it. Increased dose of Flexeril to 10mg PRN yesterday, hwoever, he has not tried this or needed this and states that his mobility has increased. 6. Atypical chest pain-resolved with improvement of BP, continues to deny 7. Bronchitis-improved/finished course of azithro. Lungs are clear. No cough reported. Denies other symptoms at this time. 8. Anemia-likely multifactorial 2/2 iron deficiency, ESRD and frequent phlebotomy in the hospital. Per Kelly Kirkpatrick started. Will need outpatient follow-up. 9. HTN-at goal on current meds 10. Chronic systolic heart failure-compensated. ICD in place. Cont medical management including metolazone, spironolactone and torsemide 11. DMII-A1C was 8.2 in May 2016. Currently controlled. Cont Lantus/ISS per glycemic pharmacist recs. DVT prophy-SCDs, per prior notes, patient reports episodes of nausea wtih heparin and declined heparin verbalizing understanding of the risks assoc with hospital-acquired blood clots. CODE STATUS FULL CODE Dispo: uncertain at this time. recently moved from [facility] to [facility] lives with mother currently in the process of establishing care in [place] area also will need to establish care with Job Coach/Job Developer in [place], close to home- Dr. Wild arranging needs to establish care with [facility] Consultants: Cards, Vascular Surgery, General Surgery, ID, Nephro, Ortho Current Inpatient Medications: Current Inpatient Medications Medications (Trade) Dose Ordered Sig/Niki Route Start Time Stop Time Status Last Admin Dose Admin Aspirin (Ecotrin Tab) 81 mg DAILY PO 08/02/16 09:00 09/01/16 08:59 08/06/16 08:00 81 MG Hydralazine HCl (Apresoline Tab) 50 mg TID PO 08/02/16 09:00 09/01/16 08:59 08/05/16 21:10 50 MG Isosorbide Dinitrate (Isordil Tab) 20 mg BID@0700,1200 PO 08/02/16 12:00 09/01/16 11:59 08/05/16 11:23 20 MG Metolazone (Zaroxolyn Tab) 5 mg DAILY PO 08/02/16 09:00 09/01/16 08:59 08/06/16 09:46 5 MG Spironolactone (Aldactone Tab) 25 mg DAILY@0930 PO 08/02/16 09:30 09/01/16 09:29 08/06/16 09:46 25 MG Torsemide (Demadex Tab) 20 mg DAILY@1700 PO 08/02/16 17:00 09/01/16 16:59 08/05/16 16:46 20 MG Torsemide (Demadex Tab) 100 mg QAM PO 08/02/16 09:00 09/01/16 08:59 08/06/16 09:44 100 MG Tobramycin Sulfate (Tobrex Oph Soln) 1 drops DAILY OPL 08/02/16 09:00 08/12/16 08:59 08/06/16 07:59 1 DROPS Insulin Aspart (novoLOG ASPART) SLIDING SCALE If C... ACHS SC 08/02/16 11:00 09/01/16 10:59 08/06/16 08:02 5 UNITS Glucose (Glucose 40% Gel) 15-30 GRAMS 15 GRAMS... UD PRN PO 08/02/16 08:45 09/01/16 08:44 Glucose (Glucose Chew Tab) 4-8 Tablets 4 Tabl... UD PRN PO 08/02/16 08:45 09/01/16 08:44 08/03/16 11:13 4 TABS Dextrose (Dextrose 50% 50ML Syringe) 25-50ML OF 50% DW IV FOR... UD PRN IV 08/02/16 08:45 09/01/16 08:44 Glucagon (Glucagon Inj) 1 mg UD PRN SQ 08/02/16 08:45 09/01/16 08:44 Acetaminophen/ Hydrocodone Bitart ([place] 5/325 Tab) 1 tab Q8 PRN PO 08/02/16 08:45 08/16/16 08:44 08/05/16 21:16 1 TAB Albuterol/ Ipratropium (Duoneb) 3 ml Q4R PRN INH 08/02/16 08:45 09/01/16 08:44 Guaifenesin (Organidin Nr Tab) 200 mg Q8 PRN PO 08/02/16 08:45 09/01/16 08:44 08/05/16 08:57 200 MG Sevelamer HCl (Renvela) 800 mg AC PO 08/02/16 16:15 09/01/16 16:14 08/06/16 07:59 800 MG Clonidine HCl (Catapres Tab) 0.1 mg Q6H PRN PO 08/02/16 12:00 09/01/16 11:59 Miscellaneous Information (Consult Glycemic Management Pharmacy) 1 ea UD PRN N/A 08/02/16 14:11 09/01/16 14:10 Metoprolol Succinate (Toprol Xl Tab) 12.5 mg BID PO 08/02/16 21:00 09/01/16 20:59 08/05/16 21:09 12.5 MG Albuterol (Ventolin Hfa Inhaler) 2 puffs Q6H PRN INH 08/03/16 09:00 09/02/16 08:59 Vitamin B Complex/ Vit C/Folic Acid (Nephrocaps) 1 cap QAM PO 08/05/16 09:00 09/04/16 08:59 08/06/16 08:00 1 CAP Calcitriol (Rocaltrol Cap) 0.5 mcg TuThSa@0900 PO 08/04/16 11:00 09/03/16 10:59 08/04/16 11:21 0.5 MCG Cyclobenzaprine HCl (Flexeril Tab) 10 mg TID PRN PO 08/05/16 10:45 09/04/16 10:44 Iron Sucrose 200 mg/Syringe 10 ml @ 2 mls/min MoWeFr@0600 IV 08/06/16 06:00 08/15/16 18:00 Doxycycline Hyclate (Vibramycin Cap) 100 mg BID PO 08/05/16 23:15 08/15/16 23:14 08/06/16 09:45 100 MG Insulin Glargine (Lantus Solostar Pen) 15 unit QPM SC 08/06/16 21:00 09/05/16 20:59
[2016-08-06] MEDS ORDERED: NURSING VERBAL MED ORDER ONE (14:45)
[2016-08-06] MEDS: GLUCOSE 10 TABS/TUBE PO PRN (15:47)
--- NOTE | 2016-08-06 16:33 | Surgery Progress Note ---
Surgery Progress Note Date of Service Aug 06, 2016. Subjective No new complaints Objective Vital Signs: Date Time Temp Pulse Resp B/P (MAP) Pulse Ox O2 Delivery O2 Flow Rate FiO2 08/06/16 15:58 36.5 71 18 130/76 (94) 98 Room Air 08/06/16 15:15 Room Air 08/06/16 14:00 36.2 72 143/91 (108) 08/06/16 13:30 73 148/94 08/06/16 13:15 72 146/92 08/06/16 13:02 73 143/91 08/06/16 12:45 72 139/92 08/06/16 12:30 72 151/94 08/06/16 12:15 72 146/96 08/06/16 12:00 72 146/93 08/06/16 11:45 72 148/96 08/06/16 11:30 71 155/100 08/06/16 11:15 72 154/96 08/06/16 11:00 72 157/100 08/06/16 10:36 36.5 70 161/101 (121) 08/06/16 10:31 Room Air 08/06/16 10:29 36.5 71 18 183/107 (132) 99 Room Air 08/06/16 08:00 98 Room Air 08/06/16 07:37 36.4 73 19 147/82 (103) 98 Room Air 08/06/16 04:00 Room Air 08/06/16 03:23 36.6 72 20 152/90 (110) 99 Room Air 08/06/16 00:00 36.7 75 16 152/83 (106) 98 Room Air 08/06/16 00:00 Room Air 08/05/16 20:00 Room Air 08/05/16 19:04 36.5 70 16 157/81 (106) 98 Laboratory Results: Results Past 24 Hours Test 08/05/16 16:30 08/05/16 20:20 08/06/16 07:03 08/06/16 08:08 Range/Units Bedside Glucose 78 145 71 70-99 mg/dl White Blood Count 11.09 4.8-10.8 K/uL Red Blood Count 3.63 4.7-6.1 M/uL Hemoglobin 11.1 14.0-18.0 g/dL Hematocrit 32.4 42-52 % Mean Corpuscular Volume 89.3 80-100 fL Mean Corpuscular Hemoglobin 30.6 25-34 pg Mean Corpuscular Hemoglobin Concent 34.3 32-36 g/dl Platelet Count 258 130-400 K/uL Mean Platelet Volume 11.5 7.4-10.4 fL Neutrophils (%) (Auto) 66.2 % Lymphocytes (%) (Auto) 12.1 % Monocytes (%) (Auto) 15.2 % Eosinophils (%) (Auto) 5.3 % Basophils (%) (Auto) 0.9 % Neutrophils # (Auto) 7.34 1.4-6.5 K/uL Lymphocytes # (Auto) 1.34 1.2-3.4 K/uL Monocytes # (Auto) 1.69 0.11-0.59 K/uL Eosinophils # (Auto) 0.59 0-0.5 K/uL Basophils # (Auto) 0.10 0-0.2 K/uL RDW Standard Deviation 49.0 36.4-46.3 fL RDW Coefficient of Variation 15.2 11.5-14.5 % Immature Granulocyte % (Auto) 0.3 % Immature Granulocyte # (Auto) 0.03 0.00-0.02 K/uL Sodium Level 136 136-145 mmol/L Potassium Level 4.4 3.5-5.1 mmol/L Chloride Level 97 98-107 mmol/L Carbon Dioxide Level 22 21-32 mmol/L Anion Gap 17.0 3-11 mmol/L Blood Urea Nitrogen 165 7-18 mg/dl Creatinine 8.80 0.60-1.40 mg/dl Est Creatinine Clear Calc Drug Dose 14.0 ml/min Estimated GFR () 7.7 Estimated GFR (Non- 6.6 BUN/Creatinine Ratio 18.8 10-20 Random Glucose 68 70-99 mg/dl Calcium Level 10.2 8.5-10.1 mg/dl Phosphorus Level 8.3 2.5-4.9 mg/dl Magnesium Level 2.6 1.8-2.4 mg/dl Albumin 2.7 3.4-5.0 gm/dl Test 08/06/16 11:49 08/06/16 16:10 Range/Units Bedside Glucose 78 83 70-99 mg/dl Buttock with packing in place No evidence of abscess If this area does not heal with anabiotics consider consult with colorectal surgery for evaluation of a possible fistula. Will sign off. Please let us know if we can be of further service.
[2016-08-06] MEDS ORDERED: B-COCAP20 PO (17:13)
[2016-08-06] MEDS ORDERED: INSDGIPEN SC (17:13)
[2016-08-06] MEDS ORDERED: DXY100 PO (17:13)
[2016-08-06] MEDS ORDERED: TPRSR25 PO (17:13)
[2016-08-06] MEDS ORDERED: RCL25 PO (17:23)
--- NOTE | 2016-08-06 20:14 | DERMATOLOGY CONSULTATION ---
DATE OF CONSULTATION: 08/06/2016 CHIEF COMPLAINT: Rash on right arm. HISTORY OF PRESENT ILLNESS: Mr. Tuckre is a 41-year-old male, who was admitted several days ago for chest pain. A week to a week and a half ago, he noted a rash on his right forearm. This was preceded by about a week with pain in the right wrist and right hand, which has persisted and is quite bothersome. Denies any injury to the hand or wrist. Denies any puncture wounds. He has not been working in any sheds, anil, attics, basements where he might have encountered spiders. Denies having any other previous similar rashes or pain and he denies any other skin involvement other than a recurrent lesion on the buttock that has been present for several months, has drained and has been treated with several antibiotics including Keflex. MEDICATIONS: As per his intake form. PHYSICAL EXAMINATION: GENERAL: He is a well-developed, well-nourished -[place] male with type 3 to type 4 skin. He is alert and oriented x3. Mood and affect are normal. EXTREMITIES: Examination of the extremities revealed an angular erythematous, but not indurated macule on the ulnar right wrist. It is exquisitely tender to touch. This tenderness extend in to the right hand, right little finger, right middle finger and right ring finger. There is no other skin involvement of the hand. There were no vesicles or pustules. Remainder of the hands, arms, back, face, neck, scalp, chest, and legs were unremarkable. He does have some hyperpigmentation stasis change in the legs. There is no pedal edema. Pedal pulses are diminished, but the feet are warm to the touch. He does have a skin opening, which appears to be possibly a fistulous tract with no pus-like drainage as there is a drain in place on the right medial buttock. IMPRESSION: 1. Fistulous tract on the right buttock concerned for pilonidal disease, now currently not infected. 2. Healing erythematous eruption of unclear etiology on the right wrist. X-rays and CT scan reveal really no significant abnormalities. This may represent a neurological issue with severe pain without any obvious etiology. The skin source appears to be traumatic, but again etiology is unclear. There did not appear to be any foreign body by exam or by CT scan. PLAN: EMG as per neurology for the right wrist and hand. Moisturizers and just local wound care to the right wrist. For the buttock, the wound has being kept packed and he has been completing his Keflex. I would recommend that the general surgery follow this up for possible pilonidal disease. I will see him on an outpatient on an as needed basis. CODEY
[2016-08-06] MEDS ORDERED: INSULIN GLARGINE SOLOSTAR 100 UNITS/ML 3 ML PEN SC SCH ×2 (21:00)
[2016-08-06] MEDS: HYDROCODONE/ACETAMOPHEN 5/325MG TAB PO PRN (22:06)
[2016-08-07 05:50] LABS: HEMATOCRIT 33.5 % (42-52); MEAN CELL VOLUME 90.3 fL (80-100); MEAN CORPUSCULAR HEMOGLOBIN 29.1 pg (25-34); MEAN CORPUSCULAR HGB CONC 32.2 g/dl (32-36); MEAN PLATELET VOLUME 11.5 fL (7.4-10.4); PLATELET COUNT 263 K/uL (130-400); RED BLOOD COUNT 3.71 M/uL (4.7-6.1); WHITE BLOOD COUNT 10.68 K/uL (4.8-10.8)
[2016-08-07 06:50] LABS: CREATININE 7.4 mg/dl (0.60-1.40); PHOSPHORUS 7.4 mg/dl (2.5-4.9); POTASSIUM 4.5 mmol/L (3.5-5.1)
[2016-08-07 07:02] VITALS: BP_SYST 148; BP_SYST 157; BP_DIAS 91; PULSE 73; TEMP 37; O2SAT 97
[2016-08-07] MEDS: RENVELA 800 MG PO SCH ×2 (08:17→12:24)
[2016-08-07] MEDS: ISOSORBIDE DINITRATE 20 MG TAB PO SCH ×2 (08:18→12:24)
[2016-08-07] MEDS: TOBRAMYCIN SULF 0.3% OP SOLN 5 ML BTL OPL SCH (08:18)
[2016-08-07] MEDS: ASPIRIN 81 MG ECTAB PO SCH (08:19)
[2016-08-07] MEDS: DOXYCYCLINE HYCLATE 100 MG CAP PO SCH (08:20)
[2016-08-07] MEDS: CALCITRIOL 0.25 MCG CAP PO SCH (08:20)
[2016-08-07] MEDS: NEPHROCAPS PO SCH (08:20)
[2016-08-07] MEDS: INSULIN ASPART 100 UNITS/ML 3 ML PEN SC SCH ×2 (08:22→12:29)
--- NOTE | 2016-08-07 08:40 | Pharmacy Progress Note ---
Glycemic Control Progress Note Date of Service Aug 07, 2016. Scope Glycemic Pharmacist consulted for glycemic control to write orders per [facility] inpatient glycemic control protocol. Objective Accuchecks BSG (last 24hrs): Test 08/06/16 11:49 08/06/16 16:10 08/06/16 21:11 08/07/16 05:30 Bedside Glucose 78 mg/dl (70-99) 83 mg/dl (70-99) 102 mg/dl (70-99) Random Glucose 66 mg/dl (70-99) Test 08/07/16 07:19 Bedside Glucose 69 mg/dl (70-99) HbA1c: Test 08/02/16 11:18 Hemoglobin A1c 8.1 % (4.5-5.6) H Recent Pertinent Medications The patient is currently receiving: * Basal insulin: Lantus 20 units HS * Correctional Insulin: Novolog Correction per scale ACHS Goal Range: Low 110 mg/dL - High 150 mg/dL Correction Factor: 25 mg/dL/unit * Prandial insulin: Per carb ratio of 1 unit per 9 grams CHO consumed Outpatient Anti-Diabetic Meds Basal Insulin & Bolus Insulin Assessment & Plan ASSESSMENT: * See progress note from 08/02 for more background info, in short: * Pt receiving SQ basal bolus insulin regimen for hyperglycemia secondary to baseline DM,stress/infection, recent surgery {cardiac cath [employer]ICE [employer]NER}, * Since the initiation of HD, patient's insulin sensitivity has increased dramatically. Over the past 48 hours, patient has continued to require less and less insulin. She used a total of 16 units yesterday which still ended up being too much. * BSGs 71, 78, 83, 102 mg/dl over the past 24hrs * Changes needed to insulin regimen: * AM Fasting BSG = 69 mg/dl. This is below goal range for patient based on inpatient targets and co-morbidities. At this point, hold basal insulin and allow BSGs to recover and re-initiate basal insulin when BSGs consistently >140 mg/dL. * Post-prandial BSGs remain euglycemic; however, with new HD schedule I would be more comfortable for BSGs to be ~100 mg/dL as inpatient. Continue loosened CF /CR. PLAN FOR INPATIENT GLYCEMIC CONTROL: * Basal insulin * HOLD Lantus at this time * Bolus insulin: Loosen goal range * NovoLog per scale ACHS or Q6hrs while NPO * Goal Range: Low 140 mg/dL - High 180 mg/dL * Correction Factor: 50 mg/dL/unit * Nutritional / Prandial insulin per carb ratio of 1 unit per 20 grams CHO consumed * Please note that the plan above was derived based on current level of insulin resistance and hospital stress. These recommendations are appropriate for inpatient admission only. Plan of care upon discharge will need to be reassessed to avoid potential outpatient hypo/hyperglycemia. Thank you.
--- NOTE | 2016-08-07 10:16 | Nephrology Progress Note ---
Nephrology Progress Note Date of Service Aug 07, 2016. Chief Complaint Follow-up for end-stage renal disease. Iraida Coronado Was seen and examined in his room this morning. He was overall feeling well but a bit frustrated and waiting to be discharged. volume status, blood pressure and electrolyte acceptable. He reports that he did not feel good during dialysis yesterday, had lot of cramping. Review of Systems A complete review of systems was performed. Pertinent positives are noted above. All other systems are negative. Vital Signs Last 8 Hrs Date Time Temp Pulse Resp B/P (MAP) Pulse Ox O2 Delivery O2 Flow Rate FiO2 08/07/16 07:02 37.0 73 16 157/91 (113) 97 148/91 (110) Last Recorded Weight Weight (Kilograms): 100.800 Physical Exam GENERAL: Middle-aged male , AAA x 3, in no distress. NECK: Supple, no JVD. CHEST: Left IJ tunnel dialysis catheter, area mildly tender but no significant swelling, erythema or bleeding. RESPIRATORY: Normal breathing efforts, no accessory muscle use, clear to auscultation bilaterally, no wheezes or rales. CARDIOVASCULAR: S1, S2 normal, rate rhythm regular. EXTREMITY: No lower extremity edema NEURO: speech fluent. PSYCHIATRY: Normal mood and judgment Family History Patient reports no known family medical history. Social History Marital Status: single Occupation: unemployed Laboratory Results Past 24 Hours 08/07/16 05:30 08/07/16 05:30 Test 08/06/16 11:49 08/06/16 16:10 08/06/16 21:11 08/07/16 05:30 Bedside Glucose 78 mg/dl (70-99) 83 mg/dl (70-99) 102 mg/dl (70-99) Red Blood Count 3.71 M/uL (4.7-6.1) Mean Corpuscular Volume 90.3 fL (80-100) Mean Corpuscular Hemoglobin 29.1 pg (25-34) Mean Corpuscular Hemoglobin Concent 32.2 g/dl (32-36) RDW Standard Deviation 49.6 fL (36.4-46.3) RDW Coefficient of Variation 15.4 % (11.5-14.5) Mean Platelet Volume 11.5 fL (7.4-10.4) Anion Gap 10.0 mmol/L (3-11) Est Creatinine Clear Calc Drug Dose 15.4 ml/min Estimated GFR () 9.5 Estimated GFR (Non- 8.2 BUN/Creatinine Ratio 15.0 (10-20) Phosphorus Level 7.4 mg/dl (2.5-4.9) Albumin 2.8 gm/dl (3.4-5.0) Test 08/07/16 07:19 Bedside Glucose 69 mg/dl (70-99) Allergies Coded Allergies: Cat Dander (Verified Allergy, Intermediate, RESPIRATORY SX, 08/02/16) Dust (Verified Allergy, Intermediate, ASTHMA SYMPTOMS, 08/02/16) Heparin (Verified Allergy, Intermediate, GI SYMPTOMS, 08/02/16) Unclassified Drugs (Verified Allergy, Unknown, SOB/COUGH FROM CIGARETTE SMOKE, 08/05/16) Medications Current Inpatient Medications Medications (Trade) Dose Ordered Sig/Niki Route Start Time Stop Time Status Last Admin Dose Admin Aspirin (Ecotrin Tab) 81 mg DAILY PO 08/02/16 09:00 09/01/16 08:59 08/07/16 08:19 81 MG Hydralazine HCl (Apresoline Tab) 50 mg TID PO 08/02/16 09:00 09/01/16 08:59 08/06/16 21:20 50 MG Isosorbide Dinitrate (Isordil Tab) 20 mg BID@0700,1200 PO 08/02/16 12:00 09/01/16 11:59 08/07/16 08:18 20 MG Metolazone (Zaroxolyn Tab) 5 mg DAILY PO 08/02/16 09:00 09/01/16 08:59 08/06/16 09:46 5 MG Spironolactone (Aldactone Tab) 25 mg DAILY@0930 PO 08/02/16 09:30 09/01/16 09:29 08/06/16 09:46 25 MG Torsemide (Demadex Tab) 20 mg DAILY@1700 PO 08/02/16 17:00 09/01/16 16:59 08/06/16 17:06 20 MG Torsemide (Demadex Tab) 100 mg QAM PO 08/02/16 09:00 09/01/16 08:59 08/06/16 09:44 100 MG Tobramycin Sulfate (Tobrex Oph Soln) 1 drops DAILY OPL 08/02/16 09:00 08/12/16 08:59 08/07/16 08:18 1 DROPS Insulin Aspart (novoLOG ASPART) SLIDING SCALE If C... ACHS SC 08/02/16 11:00 09/01/16 10:59 08/06/16 17:52 1 UNITS Glucose (Glucose 40% Gel) 15-30 GRAMS 15 GRAMS... UD PRN PO 08/02/16 08:45 09/01/16 08:44 08/06/16 15:24 15 GM Glucose (Glucose Chew Tab) 4-8 Tablets 4 Tabl... UD PRN PO 08/02/16 08:45 09/01/16 08:44 08/06/16 15:47 2 TABS Dextrose (Dextrose 50% 50ML Syringe) 25-50ML OF 50% DW IV FOR... UD PRN IV 08/02/16 08:45 09/01/16 08:44 Glucagon (Glucagon Inj) 1 mg UD PRN SQ 08/02/16 08:45 09/01/16 08:44 Acetaminophen/ Hydrocodone Bitart ([place]ell 5/325 Tab) 1 tab Q8 PRN PO 08/02/16 08:45 08/16/16 08:44 08/06/16 22:06 1 TAB Albuterol/ Ipratropium (Duoneb) 3 ml Q4R PRN INH 08/02/16 08:45 09/01/16 08:44 Guaifenesin (Organidin Nr Tab) 200 mg Q8 PRN PO 08/02/16 08:45 09/01/16 08:44 08/05/16 08:57 200 MG Sevelamer HCl (Renvela) 800 mg AC PO 08/02/16 16:15 09/01/16 16:14 08/07/16 08:17 800 MG Clonidine HCl (Catapres Tab) 0.1 mg Q6H PRN PO 08/02/16 12:00 09/01/16 11:59 Miscellaneous Information (Consult Glycemic Management Pharmacy) 1 ea UD PRN N/A 08/02/16 14:11 09/01/16 14:10 Metoprolol Succinate (Toprol Xl Tab) 12.5 mg BID PO 08/02/16 21:00 09/01/16 20:59 08/06/16 21:20 12.5 MG Albuterol (Ventolin Hfa Inhaler) 2 puffs Q6H PRN INH 08/03/16 09:00 09/02/16 08:59 Vitamin B Complex/ Vit C/Folic Acid (Nephrocaps) 1 cap QAM PO 08/05/16 09:00 09/04/16 08:59 08/07/16 08:20 1 CAP Calcitriol (Rocaltrol Cap) 0.5 mcg TuThSa@0900 PO 08/04/16 11:00 09/03/16 10:59 08/07/16 08:20 0.5 MCG Cyclobenzaprine HCl (Flexeril Tab) 10 mg TID PRN PO 08/05/16 10:45 09/04/16 10:44 Iron Sucrose 200 mg/Syringe 10 ml @ 2 mls/min MoWeFr@0600 IV 08/06/16 06:00 08/15/16 18:00 08/06/16 11:52 2 MLS/MIN Doxycycline Hyclate (Vibramycin Cap) 100 mg BID PO 08/05/16 23:15 08/15/16 23:14 08/07/16 08:20 100 MG Impression (1) CKD (chronic kidney disease), stage IV (2) Chest pain (3) Sciatica (4) Anemia (5) Idiopathic cardiomyopathy Cliff is a 41-year-old male with idiopathic cardiomyopathy, history of ventricular arrhythmia, hypertension, diabetes mellitus, and chronic kidney disease class V A3. Cliff has ESRD with significant azotemia, early signs of uremia and hypervolemia. I suspect he will feel better starting hemodialysis at this time. He does plan to transition to PD in the near future once PD catheter is placed. Recommendations -- patient clinically stable, blood pressure, volume status, electrolyte acceptable. -- Outpatient HD to be arranged at [facility] under the care of Dr. Barrios. social service has been working with [facility] and helping with transportation issues. Appreciate the help. -- if there is outpatient dialysis spot available for tomorrow, will skip dialysis today and patient can be discharged any time however, if his next dialysis is on at outpatient unit, in that case Will do the dialysis today before discharge -- Renal diet, Continue renvela with meal -- Nephrocaps once a day -- continue on Venofer.
[2016-08-07 10:30] VITALS: BP 150/68; PULSE 72
[2016-08-07] MEDS: METOPROLOL SUCC 25MG EXT REL TAB PO SCH (10:31)
[2016-08-07] MEDS: TORSEMIDE 20 MG TAB PO SCH (10:32)
[2016-08-07] MEDS: SPIRONOLACTONE 25 MG TAB PO SCH (10:33)
[2016-08-07] MEDS: METOLAZONE 5 MG TAB PO SCH (10:33)
--- NOTE | 2016-08-07 10:52 | Orthopedic Progress Note ---
Orthopedic Progress Note Date of Service Aug 07, 2016. Subjective Additional Notes: Pt sitting in chair in his room. Hoping that he may be going home today. States that he continues to have shooting pains in his 4th/5th right digits and weakness in the hand. Numbness over the dorsum of the hand. No new complaints. Objective continues with numbness in the 5th finger with partial numbness in the 4th. Minimal movement with the 5th finger. Having shooting pains into both fingers off and on. No overt swelling. No erythema. Noted area on the wrist. ? insect bite vs ? Date Time Temp Pulse Resp B/P (MAP) Pulse Ox O2 Delivery O2 Flow Rate FiO2 08/07/16 07:02 37.0 73 16 157/91 (113) 97 148/91 (110) 08/06/16 23:41 36.8 79 18 148/89 (108) 98 Room Air 08/06/16 15:58 36.5 71 18 130/76 (94) 98 Room Air 08/06/16 15:15 Room Air 08/06/16 14:00 36.2 72 143/91 (108) 08/06/16 13:30 73 148/94 08/06/16 13:15 72 146/92 08/06/16 13:02 73 143/91 08/06/16 12:45 72 139/92 08/06/16 12:30 72 151/94 08/06/16 12:15 72 146/96 08/06/16 12:00 72 146/93 08/06/16 11:45 72 148/96 08/06/16 11:30 71 155/100 08/06/16 11:15 72 154/96 08/06/16 11:00 72 157/100 08/06/16 10:36 36.5 70 161/101 (121) Laboratory Results 24 Hours: Test 08/07/16 05:30 Hematocrit 33.5 % Hemoglobin 10.8 g/dL Assessment & Plan Assessment: 1. Right arm ulnar nerve neuropraxia/neuropathy. 2. Muscular atrophy in the right hand, interosseous muscles. Plan: Unable to get MRI due to pt having implantable defribrillator. Likely he will be Dicharged today with plans to follow up with Neurology service in 1 week for EMG Will order Cock up splint per Dr Engle request. Continue splint regularly over the next week. Follow up with Dr Mccarty in 1 week. call for appt. [phone]
[2016-08-07] MEDS ORDERED: CALC0.5C PO (11:35)
--- NOTE | 2016-08-07 11:42 | Discharge Instructions ---
Discharge Instructions Date of Service Aug 06, 2016. Admission Reason for Admission: Chest Pain Discharge Discharge Diagnosis / Problem: Chest pain, ESRD, R hand numbness, sciatica Discharge Goals Goal(s): Prevent Disease Progression Activity Recommendations Activity Limitations: per Instructions/Follow-up section . Instructions / Follow-Up Instructions / Follow-Up Please take all medications as instructed. You have a follow-up appointment scheduled with Dr. Lidia Garay in [place] ([facility]) on , 08/09 @ 9:45 am. This is for follow-up from this hospitalization. At this appointment, referrals can be placed to see Neurology for outpatient evaluation for your hand. Please contact [facility] for an appointment to consider nerve conduction studies on your hand. The case was discussed with Pinky Varghese PA-C and Dr. Mike Pruitt is also aware. Their number is You will continue the Doxycycline antibiotic for the next 21 days. You will need to follow-up with Dr. Familia Briceno in [facility] office. The number to his office is . Please hold the Lantus until you see Dr. Garay, and please check your blood sugar at home and bring these readings to all your appointments. I would recommend am fasting readings and two hours after eating 1 or 2 meals. Be sure to document the time of day, too. You will need to follow-up with Dr. Mccarty's office (Orthopedics) in one week for re-evaluation of your hand. Please call [phone] for an appointment. A brace has been ordered for you. You were given a script for a wheeled walker to help with getting around. Home Health nursing has been ordered to help with daily packing of the wound until it closes. Continue all recommendations from Nephrology including weekly iron infusions which will be orchestrated during your dialysis treatments. Cont with dialysis treatments three times per week as scheduled in [place]. It was a pleasure taking care of you! Call if you have any questions or problems. You can reach a [facility] hospitalist on duty at [facility] 24 hours a day by calling [phone]. Take care of yourself. Lily Díaz, [facility] Hospitalist Current Hospital Diet Patient's current hospital diet: Diabetes Type 2 Diet, Renal Diet Discharge Diet Recommended Diet: Diabetes Type 2 Diet, Renal Diet Procedures Procedures Performed: Insertion of Perm Catheter, Left Internal Jugular Approach, Ultrasound Localization of Left Internal Jugular Vein, Fluoroscopy for positioning, Moderate Sedation from 1536 - 1404 Pending Studies Studies pending at discharge: no Laboratory Results Hemoglobin A1c Test 08/02/16 11:18 Range/Units Estimated Average Glucose 186 mg/dl Hemoglobin A1c 8.1 H 4.5-5.6 % Medical Emergencies . Who to Call and When: Medical Emergencies: If at any time you feel your situation is an emergency, please call 911 immediately. . Non-Emergent Contact Non-Emergency issues call your: Primary Care Provider . . "Provider Documentation" section prepared by Lily Díaz. . VTE Core Measure Inpt VTE Proph given/why not?: Refusal of treatmnt by pt
--- NOTE | 2016-08-07 11:47 | Discharge Summary ---
Discharge Summary Date of Service Aug 07, 2016. Discharge Summary Admission Date: Aug 02, 2016 at 06:27 Discharge Date: Aug 06, 2016 Discharge Disposition: Home with services Principal Diagnosis: Hypertension Atypical chest pain-resolved ESRD-on hemodialysis s/p perm cath placement this admission L buttock gluteal abscess -MRSA+ R wrist pain/numbness uncertain etiology L radicular pain/sciatica Acute Bronchitis Anemia NICM DMII Procedures: Insertion of Perm Catheter, Left Internal Jugular Approach, Ultrasound Localization of Left Internal Jugular Vein, Fluoroscopy for positioning, Moderate Sedation from 1536 - 1404 Vaccinations: Declined Pneumovax Consultations: Cards, Vascular Surgery, General Surgery, ID, Nephro, Ortho, Derm Pending Studies/Follow-Up: see instructions below Medication Reconciliation New Medications: B-Complex W/ C & Folic Acid (Renal) 1 Cap Cap 1 CAP PO QAM for 30 Days, #30 CAP Calcitriol (Calcitriol) 0.5 Mcg Cap 1 CAP PO MoWeFr@0900 for 30 Days, #15 CAP 1 Refill Doxycycline Hyclate (Doxycycline Hyclate) 100 Mg Cap 100 MG PO BID for 21 Days, #42 CAP Metoprolol Succinate (Metoprolol Succinate ER) 25 Mg Tabcr 12.5 MG PO BID for 30 Days, #30 TAB Continued Medications: Albuterol Hfa (Ventolin Hfa) 200 Puffs/04937 Mcg Aers 2 PUFFS INH Q6H PRN for SOB/Wheezing, INHALER Aspirin (Aspirin Ec) 81 Mg Tab 81 MG PO DAILY Hydralazine Hcl (Apresoline) 50 Mg Tab 50 MG PO TID, TAB Insulin Aspart (Novolog Flexpen) 100 Units/Ml Inj UNITS SC AC DOSED PER SLIDING SCALE Isosorbide Dinitrate (Isordil) 20 Mg Tab 20 MG PO BID TAKE AT 8am & 4pm Metolazone (Zaroxolyn) 5 Mg Tab 5 MG PO DAILY, TAB Sevelamer Carbonate (Renvela) 800 Mg Tab 1 TAB PO AC, 3 Refills Spironolactone (Aldactone) 25 Mg Tab 25 MG PO DAILY, TAB Tobramycin Sulfate (Ophth) (Tobrex Oph Jessica) 0.3 % Jessiac 1 DROPS OPL DAILY for 7 Days, #5 ML Torsemide (Demadex) 20 Mg Tab 20 MG PO QPM Torsemide (Demadex) 100 Mg Tab 100 MG PO QAM Discontinued Medications: Azithromycin (Zithromax Z-Chetan) 250 Mg Tab 1 PKT PO UD for 5 Days, #1 PKT Cyclobenzaprine Hcl (Flexeril) 5 Mg Tab 5 MG PO TID for 7 Days Insulin Glargine (Lantus Solostar) 100 Unit/Ml Inj 38 UNITS SC QPM, PEN Admission Information HPI (per Admitting provider): 41 year old male with PMH of DM, HTN, CKD stage 5, cardiomyopathy, ICD placement presents to the Emergency Room with complaints chest pain that started around last night. Pt recently moved [facility] to [place]. He does not yet establish with a PCP. Pt said that the pain located below his nipple area, sharp pain, grade 2/10. The pain is radiated to his back. He also complaint left shoulder pain, and right wrist pain associated with 4th and 5th fingers numbness. Pt said that currently he does not have any chest pain. He said that the pain come and goes and usually lasted a few second. he said that nothing triggers the Chest pain. The chest pain can occur at anytime. He also complains of bilateral lower extremity weakness and left leg pain which is similar to his previous sciatica pain. he said the pain kept him up all night. He has a defibrillator in place. He had a cardiac catheterization done 3yrs ago that was normal. He is scheduled to have vein mapping today In [place]. He continues to produce urine. He was recently dx with bronchitis and being treated with Zithromax. Denies any palpitation, SOB, fever and chills. Physical Exam (per Admitting): General Appearance: WD/WN, no apparent distress Head: normocephalic, atraumatic Eyes: normal inspection, PERRL ENT: hearing grossly normal Neck: supple, no JVD Respiratory/Chest: normal breath sounds, no respiratory distress, no accessory muscle use Cardiovascular: no JVD, no murmur Abdomen/GI: normal bowel sounds, non tender Back: no CVA tenderness, + pertinent finding (back pain) Extremities/Musculoskelatal: no calf tenderness Neurologic/Psych: alert, normal mood/affect, oriented x 3 Skin: warm/dry, no rash, + pertinent finding (Left buttock- (+) small open wound, lower left buttock, no erythema/warmth/tenderness) Hospital Course 41 yo diabetic male with HTN, CAD, cardiomyopathy and ESRD recently started on HD yesterday who presented a few days ago with chest pain though 2/2 uncontrolled BP. Cards has titrated meds and BP is better controlled with resolution of chest pain. 1. Right wrist wound with R hand ulnar numbness and circumferential pain and numbness around the wound. Pt denies trauma and suggests bugbite as the cause. Wound has been there for 1-2 weeks at this point per patient and he feels it is improving but numbness and decreased 5th finger function is very limiting. Ortho has been consulted for evaluation and recommends MRI but we cannot do that because of his ICD. Neuro was initially consulted for evaluation and possible NCV/EMG however, this is something they do only as an outpatient. I will give him instructions to follow-up with them at discharge. 2. L buttock furuncle with spontaneous drainage at home 6 weeks ago--packing in place with no surrounding erythema and fevers/chills have resolved per patient. Zosyn and Azithro initially->changes to Keflex per ID-->after wound culture revealed GPCs he was changed to doxy last night. MRSA positive this morning. Per ID will cont 21 days of doxy as outpatient. Cont daily packing changes per wound care through home health. Will need nursing for daily packing and home wound care as pt lives with girlfriend and states she will be unable to do this. Will need to follow-up with Dr. Briceno as outpatient in one week. 3. ESRD-perm cath placed 08/03 and first HD was 08/04. No issues except some minor discomfort with the catheter next to his nipple. Next HD treatment is today. Cont per Nephro recs. Appreciate CM assistance with setting up transportation to and from outpatient as patient states that his cataracts have left him unable to drive. 4. Chest pain in setting of h/o DMII, CAD and cardiomyopathy--resolved after titration of BP meds and better control of HTN 5. L buttock pain with radiculopathy x 4 weeks. On exam there was TTP of the L piriformis muscle and when patient changes position during exam he develops acute spasms that cause him severe pain. On SLR test he was noted to be extremely inflexible but SLR test was negative. He reports PT showed him some stretching exercises. My initial impression is that this may be related to some compensation from the wound on his L buttock and trying to sit in strange positions to stay off of it. Increased dose of Flexeril to 10mg PRN yesterday, hwoever, he has not tried this or needed this and states that his mobility has increased. 6. Atypical chest pain-resolved with improvement of BP, continues to deny 7. Bronchitis-improved/finished course of azithro. Lungs are clear. No cough reported. Denies other symptoms at this time. 8. Anemia-likely multifactorial 2/2 iron deficiency, ESRD and frequent phlebotomy in the hospital. Per Kelly Kirkpatrick started. Will need outpatient follow-up. 9. HTN-at goal on current meds 10. Chronic systolic heart failure-compensated. ICD in place. Cont medical management including metolazone, spironolactone and torsemide 11. DMII-A1C was 8.2 in May 2016. Currently controlled. Cont Lantus/ISS per glycemic pharmacist recs. DVT prophy-SCDs, per prior notes, patient reports episodes of nausea with heparin and declined heparin verbalizing understanding of the risks assoc with hospital-acquired blood clots. CODE STATUS FULL CODE Dispo: to home recently moved from [facility] to [facility] lives with mother currently in the process of establishing care in [place] area also will need to establish care with [employer] in [place], close to home- Dr. Wild arrjas needs to establish care with a [employer] Lily Díaz DO [facility] Hospitalist Total time spent on discharge = 60 minutes This includes examination of the patient, discharge planning, medication reconciliation, and communication with other providers. Discharge Instructions Discharge Instructions Date of Service Aug 06, 2016. Admission Reason for Admission: Chest Pain Discharge Discharge Diagnosis / Problem: Chest pain, ESRD, R hand numbness, sciatica Discharge Goals Goal(s): Prevent Disease Progression Activity Recommendations Activity Limitations: per Instructions/Follow-up section . Instructions / Follow-Up Instructions / Follow-Up Please take all medications as instructed. You have a follow-up appointment scheduled with Dr. Lidia Garay in [place] ([facility]) on 08/09 @ 9:45 am. This is for follow-up from this hospitalization. At this appointment, referrals can be placed to see Neurology for outpatient evaluation for your hand. Please contact [facility] for an appointment to consider nerve conduction studies on your hand. The case was discussed with Pinky Varghese PA-C and Dr. Mike Pruitt is also aware. Their number is You will continue the Doxycycline antibiotic for the next 21 days. You will need to follow-up with Dr. Familia Briceno in [facility] office. The number to his office is . Please hold the Lantus until you see Dr. Garay, and please check your blood sugar at home and bring these readings to all your appointments. I would recommend am fasting readings and two hours after eating 1 or 2 meals. Be sure to document the time of day, too. You will need to follow-up with Dr. Mccarty's office (Orthopedics) in one week for re-evaluation of your hand. Please call [phone] for an appointment. A brace has been ordered for you. You were given a script for a wheeled walker to help with getting around. Home Health nursing has been ordered to help with daily packing of the wound until it closes. Continue all recommendations from Nephrology including weekly iron infusions which will be orchestrated during your dialysis treatments. Cont with dialysis treatments three times per week as scheduled in [place]. It was a pleasure taking care of you! Call if you have any questions or problems. You can reach a [facility] hospitalist on duty at [facility] 24 hours a day by calling [phone]. Take care of yourself. Lily Díaz, DO [facility] Additional Copies To Lidia Garay D.O.
[2016-08-07 12:09] VITALS: Ht 190.5 cm; Wt 100.8 kg
[2016-08-07 12:34] VITALS: BP 148/91; PULSE 73; TEMP 37; O2SAT 97
[2016-08-07 13:24] LABS: CALCIUM 10.5 mg/dl (8.5-10.1)
[2016-11-01] MEDS ORDERED: METO25TA3 PO (13:30)
[2016-12-20] MEDS ORDERED: METR500T PO (10:36)
[2016-12-20] MEDS ORDERED: APIX1TAB PO (10:36)
== END 2016-08-07 12:50 | disposition home health service (06) | DRG 683 ==
LOC: C.EDB 05:28 → C.2T 06:27 → ENRESERV 06:41 → C.MS2W 08-06 10:17
PROVIDERS: ADMIT Internal Medicine; ATTEND Hospitalist
PROC: 02HV33Z Insertion of Infusion Device into Superior Vena Cava, Percutaneous Approach (ICD-10-PCS; principal; 2016-08-03 12:45)
DX: N17.9 Acute kidney failure, unspecified (principal); N18.6 End stage renal disease; I13.2 Hypertensive heart and chronic kidney disease with heart failure and with stage 5 chronic kidney disease, or end stage renal disease; I42.9 Cardiomyopathy, unspecified; L02.31 Cutaneous abscess of buttock; I50.22 Chronic systolic (congestive) heart failure; R07.89 Other chest pain; Z95.810 Presence of automatic (implantable) cardiac defibrillator; I48.91 Unspecified atrial fibrillation; Z87.891 Personal history of nicotine dependence; Z79.4 Long term (current) use of insulin; E83.42 Hypomagnesemia; E11.21 Type 2 diabetes mellitus with diabetic nephropathy; B95.62 Methicillin resistant Staphylococcus aureus infection as the cause of diseases classified elsewhere; S61.551A Open bite of right wrist, initial encounter; Y92.009 Unspecified place in unspecified non-institutional (private) residence as the place of occurrence of the external cause; I25.10 Atherosclerotic heart disease of native coronary artery without angina pectoris; J40 Bronchitis, not specified as acute or chronic; G56.21 Lesion of ulnar nerve, right upper limb; M62.541 Muscle wasting and atrophy, not elsewhere classified, right hand

== ENCOUNTER 2016-08-07 23:58 | Observation (INO) | payer OTHER ==
[~2016-08-07] VITALS: Ht 190.5 cm; Wt 103.4 kg
[~2016-08-07 23:58] MED LIST changes: +ASPI81TA28 PO; -AZITTAB PO; +B-COCAP20 PO; +CALC0.5C17 PO; -CYCL5TAB PO; +DXY100 PO; +HYDR-4717 PO; +INSDGIPEN SC; +ISOS20TA15 PO; +METO5TAB5 PO; +NVLGI/PEN SC; +RCL25 PO; +SEVE800T7 PO; +SPIR25TA PO; +TORS100T13 PO; +TORS20TA2 PO; +TPRSR25 PO; +VNTHFA/IN INH
[2016-08-08] VITALS (25 sets, daily range): BP systolic 135–172; BP diastolic 70–99; PULSE 77–90; TEMP 36.8–37.4; O2SAT 95–98; Ht 190.5 cm; Wt 103.4 kg
[2016-08-08 00:35] LABS: HEMATOCRIT 32.6 % (42-52)
--- NOTE | 2016-08-08 02:09 | EMERGENCY ROOM VISIT NOTE ---
ED Visit Note First contact with patient: 00:02 I have personally evaluated and examined this patient. I agree with assessment and plan of Lavinia Dumont PA-C. Left IJ dialysis port with some continued bleeding since this afternoon. Mild ooze without heavy bleeding. HgB stable.
[2016-08-08] MEDS ORDERED: IBUPROFEN 600 MG TAB PO STA (04:08)
[2016-08-08] MEDS ORDERED: MOTRIN HOME PACK 600 MG (4)BTL PO ONE (04:15)
[2016-08-08 04:24] LABS: BASO % 0.7 %; BASO ABS # 0.09 K/uL (0-0.2); COMPLETE YES; EOS % 2.9 %; IG% 0.3 %; LYMPH % 8.7 %; LYMPH ABS # 1.08 K/uL (1.2-3.4); MEAN CORPUSCULAR HEMOGLOBIN 29.9 pg (25-34); MEAN PLATELET VOLUME 11.5 fL (7.4-10.4); NEUT % 70.4 %; PLATELET COUNT 288 K/uL (130-400); RED BLOOD COUNT 3.64 M/uL (4.7-6.1); WHITE BLOOD COUNT 12.43 K/uL (4.8-10.8)
[2016-08-08 04:31] LABS: INR 1.1 (0.9-1.1); PARTIAL THROMBOPLASTIN RATIO 1.1; PROTHROMBIN TIME (PATIENT) 12.3 SECONDS (9.0-12.0)
[2016-08-08 04:36] LABS: MEAN CELL VOLUME 89.1 fL (80-100)
[2016-08-08 04:37] LABS: MEAN CORPUSCULAR HGB CONC 33.4 g/dl (32-36)
[2016-08-08 04:46] LABS: ALB/GLOB RATIO 0.4 (0.9-2); BUN/CREATININE RATIO 14.5 (10-20); CALCIUM 10.7 mg/dl (8.5-10.1); POTASSIUM 4.7 mmol/L (3.5-5.1)
--- NOTE | 2016-08-08 04:53 | History and Physical ---
History & Physical Date & Time of Service: Aug 08, 2016 at 04:53 Chief Complaint: Bleeding Primary Care Physician: No Doctor, Assigned History of Present Illness Source: patient, parent, hospital records Recent confinement August 02 for atypical chest pain, end-stage renal disease. Hemodialysis initiated during recent confinement via left IJ catheter placed by by Vascular Surgery. Yesterday afternoon patient noted bleeding on dialysis catheter site. No chest pain no shortness of breath. Denies trauma or undue exertion. At the ER, patient intolerant of manual pressure and sandbag intervention advised by vascular surgeon. Past Medical/Surgical History Medical Problems: (1) A-fib Status: Resolved (2) Diabetes Status: Chronic (3) Hypertension Status: Chronic Family History Patient reports no known family medical history. Social History Smoking Status: Never Smoker Alcohol Use: none Marital Status: single Occupational Status: unemployed, other (applying for disability) Multi-Drug Resistant Organisms Type of MDRO: MRSA (as per HPI, all other ROS negative) Allergies Coded Allergies: Cat Dander (Verified Allergy, Intermediate, RESPIRATORY SX, 08/08/16) Dust (Verified Allergy, Intermediate, ASTHMA SYMPTOMS, 08/08/16) Heparin (Verified Allergy, Intermediate, GI SYMPTOMS, 08/08/16) Unclassified Drugs (Verified Allergy, Unknown, SOB/COUGH FROM CIGARETTE SMOKE, 08/08/16) Home Medications Scheduled Aspirin (Aspirin Ec), 81 MG PO DAILY B-Complex W/ C & Folic Acid (Renal), 1 CAP PO QAM Calcitriol (Calcitriol), 1 CAP PO MoWeFr@0900 Doxycycline Hyclate (Doxycycline Hyclate), 100 MG PO BID Hydralazine Hcl (Apresoline), 50 MG PO TID Insulin Aspart (Novolog Flexpen), UNITS SC AC Isosorbide Dinitrate (Isordil), 20 MG PO BID Metolazone (Zaroxolyn), 5 MG PO DAILY Metoprolol Succinate (Metoprolol Succinate ER), 12.5 MG PO BID Sevelamer Carbonate (Renvela), 1 TAB PO AC Spironolactone (Aldactone), 25 MG PO DAILY Tobramycin Sulfate (Ophth) (Tobrex Oph Jessica), 1 DROPS OPL DAILY Torsemide (Demadex), 20 MG PO QPM Torsemide (Demadex), 100 MG PO QAM Scheduled PRN Albuterol Hfa (Ventolin Hfa), 2 PUFFS INH Q6H PRN for SOB/Wheezing Physical Exam Vital Signs Date Time Temp Pulse Resp B/P (MAP) Pulse Ox O2 Delivery O2 Flow Rate FiO2 08/08/16 04:10 79 08/08/16 03:54 79 16 152/97 94 Room Air 08/08/16 03:00 79 16 154/95 98 Room Air 08/08/16 02:07 78 16 155/95 95 Room Air 08/08/16 00:26 78 16 147/88 96 Room Air 08/08/16 00:04 80 08/08/16 00:00 36.8 80 16 147/90 99 Room Air 08/08/16 00:00 99 Room Air General Appearance: + pertinent finding (anxious) Head: normocephalic Eyes: + pertinent finding (pale palpebral conjunctivae, dry mucosa) Neck: supple Respiratory/Chest: + decreased breath sounds, + pertinent finding (dialysis catheter site on left anterior chest wall, dried blood under protective dressing ) Abdomen/GI: soft Extremities/Musculoskelatal: non-tender Neurologic/Psych: alert Skin: + pertinent finding (Sallow) Diagnostics Laboratory Results Results Past 24 Hours Test 08/08/16 00:10 Range/Units White Blood Count 12.43 4.8-10.8 K/uL Red Blood Count 3.64 4.7-6.1 M/uL Hemoglobin 10.9 14.0-18.0 g/dL Hematocrit 32.6 42-52 % Mean Corpuscular Volume 89.1 80-100 fL Mean Corpuscular Hemoglobin 29.9 25-34 pg Mean Corpuscular Hemoglobin Concent 33.4 32-36 g/dl Platelet Count 288 130-400 K/uL Mean Platelet Volume 11.5 7.4-10.4 fL Neutrophils (%) (Auto) 70.4 % Lymphocytes (%) (Auto) 8.7 % Monocytes (%) (Auto) 17.0 % Eosinophils (%) (Auto) 2.9 % Basophils (%) (Auto) 0.7 % Neutrophils # (Auto) 8.75 1.4-6.5 K/uL Lymphocytes # (Auto) 1.08 1.2-3.4 K/uL Monocytes # (Auto) 2.11 0.11-0.59 K/uL Eosinophils # (Auto) 0.36 0-0.5 K/uL Basophils # (Auto) 0.09 0-0.2 K/uL RDW Standard Deviation 49.5 36.4-46.3 fL RDW Coefficient of Variation 15.3 11.5-14.5 % Immature Granulocyte % (Auto) 0.3 % Immature Granulocyte # (Auto) 0.04 0.00-0.02 K/uL Prothrombin Time 12.3 9.0-12.0 SECONDS Prothromb Time International Ratio 1.1 0.9-1.1 Activated Partial Thromboplast Time 29.8 21.0-31.0 SECONDS Partial Thromboplastin Ratio 1.1 Sodium Level 137 136-145 mmol/L Potassium Level 4.7 3.5-5.1 mmol/L Chloride Level 98 98-107 mmol/L Carbon Dioxide Level 26 21-32 mmol/L Anion Gap 13.0 3-11 mmol/L Blood Urea Nitrogen 116 7-18 mg/dl Creatinine 8.00 0.60-1.40 mg/dl Est Creatinine Clear Calc Drug Dose 15.5 ml/min Estimated GFR () 8.6 Estimated GFR (Non- 7.4 BUN/Creatinine Ratio 14.5 10-20 Random Glucose 162 70-99 mg/dl Calcium Level 10.7 8.5-10.1 mg/dl Total Bilirubin 1.0 0.2-1 mg/dl Aspartate Amino Transf (AST/SGOT) 24 15-37 U/L Alanine Aminotransferase (ALT/SGPT) 12 12-78 U/L Alkaline Phosphatase 206 45-117 U/L Total Protein 9.0 6.4-8.2 gm/dl Albumin 2.7 3.4-5.0 gm/dl Globulin 6.3 2.5-4.0 gm/dl Albumin/Globulin Ratio 0.4 0.9-2 Impression Assessment and Plan Bleeding dialysis catheter site px hemodynamically stable (px intolerant of manual pressure/sandbag orders implemented in the ER) ESRD on HD chronic systolic HF 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 Y/N: Yes Risk Level: Moderate
[2016-08-08] MEDS ORDERED: GLUCAGON FOR INJ 1 MG VIAL SQ PRN (05:00)
[2016-08-08] MEDS ORDERED: IV FLUIDS COMPLETED PRN (05:00)
[2016-08-08] MEDS ORDERED: DEXTROSE 50% 50 ML SYR IV PRN (05:00)
[2016-08-08] MEDS ORDERED: ACETAMINOPHEN 325 MG TAB PO PRN (05:00)
[2016-08-08] MEDS ORDERED: LORAZEPAM 2 MG/ML 1 ML VIAL IV PRN (05:00)
[2016-08-08] MEDS ORDERED: GLUCOSE 40% GEL 15 GM TUBE PO PRN (05:00)
[2016-08-08] MEDS ORDERED: ONDANSETRON INJ 2 MG/ML 2 ML VIAL IV PRN (05:00)
[2016-08-08] MEDS ORDERED: TRAMADOL HCL 50 MG TAB PO PRN (05:00)
[2016-08-08] MEDS ORDERED: HYDROmorphone INJ 0.5 MG/0.5 ML SYR IV PRN (05:00)
[2016-08-08] MEDS ORDERED: GLUCOSE 10 TABS/TUBE PO PRN (05:00)
[2016-08-08] MEDS ORDERED: LORAZEPAM INJ 0.5 MG in SYRINGE 0.75 ML IV PRN (06:00)
[2016-08-08 06:21] LABS: HEMATOCRIT 33.6 % (42-52)
[2016-08-08] MEDS: ISOSORBIDE DINITRATE 20 MG TAB PO SCH ×2 (06:40→16:37)
[2016-08-08] MEDS ORDERED: PNEUMOCOCCAL POLYSACCHARIDES 25 MCG/0.5 ML VIAL/SYR IM. ONE (07:00)
[2016-08-08] MEDS ORDERED: PNEUMOCOCCAL ADMINISTRATION CHARGE ONE (07:00)
[2016-08-08] MEDS ORDERED: SEVELAMER CARBONATE PO SCH (08:00)
--- NOTE | 2016-08-08 08:24 | Medical Consult ---
Consultation Note Date of Service Aug 08, 2016. Consultation Note 41 yo m with multiple medical problems, seen by Dr Encarnacion for permcath insertion to initiate HD last week, seen today d/t bleeding from his permcath insertion site. Pt states he was discharged from [facility] yesterday and about 1.5hrs later began to have blood oozing from his catheter exit site. States the area has been sore since insertion. Came to [facility] ED, who contacted Dr Encarnacion. He recommended holding pressure to the site manually or using sandbags. Pt states he was unable to tolerate either d/t severe pain. Denies chest pain otherwise, SOB, fever, chills, N/V, other complaints. EXAM: CONST: thin, pale, chronically ill appearing male, NAD CHEST: LEFT chest exit site with recent dressing change. No active bleeding noted. Mild tenderness over catheter extending to IJ insertion site. No erythema. No hematoma. ASSESSMENT and PLAN: ESRD on HD Pt without active bleeding noted at this time. Recommended to nursing to hold manual pressure from IJ site to exit site for 40 minutes. If bleeding continues, recommend pressure dressing to area for 24 hrs. Pt not on anticoagulation. Discussed with pt regarding need for manual pressure/pressure dressing to area. Option of removing catheter also presented to pt, although pt would then require a new access for HD. Pt opting to allow manual pressure. No further dressing changes for at least 24 hrs.
[2016-08-08] MEDS: METOLAZONE 5 MG TAB PO SCH (08:29)
[2016-08-08] MEDS: DOXYCYCLINE HYCLATE 100 MG CAP PO SCH ×2 (08:31→20:54)
[2016-08-08] MEDS: METOPROLOL SUCC 25MG EXT REL TAB PO SCH ×2 (08:32→20:54)
[2016-08-08] MEDS: TOBRAMYCIN SULF 0.3% OP SOLN 5 ML BTL OPL SCH (08:34)
[2016-08-08] MEDS: INSULIN ASPART 100 UNITS/ML 3 ML PEN SC SCH ×4 (08:57→20:45)
[2016-08-08] MEDS: TORSEMIDE 20 MG TAB PO SCH (08:59)
[2016-08-08] MEDS ORDERED: INSULIN GLARGINE SOLOSTAR 100 UNITS/ML 3 ML PEN SC SCH (09:00)
[2016-08-08] MEDS ORDERED: CALCITRIOL 0.25 MCG CAP PO SCH (09:00)
--- NOTE | 2016-08-08 11:13 | Progress Note ---
Medicine Progress Note Date & Time of Visit: Aug 08, 2016 at 10:55. Subjective -pt concerned about bleeding -voices that staff holding pressure caused him discomfort denies symptoms anywhere else at this time -cough present but improved R hand stll affected with numbness and pain. Objective Last 8 Hrs Date Time Temp Pulse Resp B/P (MAP) Pulse Ox O2 Delivery O2 Flow Rate FiO2 08/08/16 07:36 Room Air 08/08/16 07:26 37.1 80 18 172/96 (121) 97 Room Air 08/08/16 06:42 157/91 (113) 08/08/16 05:52 37.0 78 20 154/99 98 Room Air 08/08/16 05:26 79 16 163/92 96 08/08/16 04:10 79 08/08/16 03:54 79 16 152/97 94 Room Air 08/08/16 03:00 79 16 154/95 98 Room Air Physical Exam: GEN: WNWD, in no acute distress, alert and appropriate HEENT: NC/AT, normal sclerae, MMM CARDIO: reg rate, S1/2 heard without m/g/r CHEST-catheter with dried blood, pressure dressing in place. LUNGS: CTA bilaterally, no crackles, rales or wheezes, good diaphragmatic excursion ABD: soft, non-tender, non-distended, no rebound or guarding, +BS EXTREMITY: RP and DP palpable 2+ bilat, no LE swelling or edema, extremities are warm and well-perfused. 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 Sensation loss an difficulty moving 5th finger. NEURO: CN 2-12 grossly intact, focal deficit in hand as above. MUSC: no gross focal deficits. SKIN: warm and dry and wounds as above. Of note he does have a buttock wound, however, this was not visualized at this time as patient is very private and mother is in the room and very concerned, and this was reportedly just evaluated by nursing staff. Laboratory Results: 08/08/16 00:10 Red Blood Count 3.64, Mean Corpuscular Volume 89.1, Mean Corpuscular Hemoglobin 29.9, Mean Corpuscular Hemoglobin Concent 33.4, Mean Platelet Volume 11.5, Neutrophils (%) (Auto) 70.4, Lymphocytes (%) (Auto) 8.7, Monocytes (%) (Auto) 17.0, Eosinophils (%) (Auto) 2.9, Basophils (%) (Auto) 0.7, Neutrophils # (Auto ) 8.75, Lymphocytes # (Auto) 1.08, Monocytes # (Auto) 2.11, Eosinophils # (Auto ) 0.36, Basophils # (Auto) 0.09 08/08/16 05:50 08/08/16 00:10 Test 08/08/16 00:10 08/08/16 08:13 White Blood Count 12.43 K/uL (4.8-10.8) Red Blood Count 3.64 M/uL (4.7-6.1) Hemoglobin 10.9 g/dL (14.0-18.0) Hematocrit 32.6 % (42-52) Mean Corpuscular Volume 89.1 fL (80-100) Mean Corpuscular Hemoglobin 29.9 pg (25-34) Mean Corpuscular Hemoglobin Concent 33.4 g/dl (32-36) Platelet Count 288 K/uL (130-400) Mean Platelet Volume 11.5 fL (7.4-10.4) Neutrophils (%) (Auto) 70.4 % Lymphocytes (%) (Auto) 8.7 % Monocytes (%) (Auto) 17.0 % Eosinophils (%) (Auto) 2.9 % Basophils (%) (Auto) 0.7 % Neutrophils # (Auto) 8.75 K/uL (1.4-6.5) Lymphocytes # (Auto) 1.08 K/uL (1.2-3.4) Monocytes # (Auto) 2.11 K/uL (0.11-0.59) Eosinophils # (Auto) 0.36 K/uL (0-0.5) Basophils # (Auto) 0.09 K/uL (0-0.2) RDW Standard Deviation 49.5 fL (36.4-46.3) RDW Coefficient of Variation 15.3 % (11.5-14.5) Immature Granulocyte % (Auto) 0.3 % Immature Granulocyte # (Auto) 0.04 K/uL (0.00-0.02) Prothrombin Time 12.3 SECONDS (9.0-12.0) Prothromb Time International Ratio 1.1 (0.9-1.1) Activated Partial Thromboplast Time 29.8 SECONDS (21.0-31.0) Partial Thromboplastin Ratio 1.1 Anion Gap 13.0 mmol/L (3-11) Est Creatinine Clear Calc Drug Dose 15.5 ml/min Estimated GFR () 8.6 Estimated GFR (Non- 7.4 BUN/Creatinine Ratio 14.5 (10-20) Calcium Level 10.7 mg/dl (8.5-10.1) Total Bilirubin 1.0 mg/dl (0.2-1) Aspartate Amino Transf (AST/SGOT) 24 U/L (15-37) Alanine Aminotransferase (ALT/SGPT) 12 U/L (12-78) Alkaline Phosphatase 206 U/L (45-117) Total Protein 9.0 gm/dl (6.4-8.2) Albumin 2.7 gm/dl (3.4-5.0) Globulin 6.3 gm/dl (2.5-4.0) Albumin/Globulin Ratio 0.4 (0.9-2) Bedside Glucose 137 mg/dl (70-99) Last 24 Hours Test 08/08/16 00:10 08/08/16 05:50 08/08/16 08:13 White Blood Count 12.43 K/uL Red Blood Count 3.64 M/uL Hemoglobin 10.9 g/dL 10.8 g/dL Hematocrit 32.6 % 33.6 % Mean Corpuscular Volume 89.1 fL Mean Corpuscular Hemoglobin 29.9 pg Mean Corpuscular Hemoglobin Concent 33.4 g/dl Platelet Count 288 K/uL Mean Platelet Volume 11.5 fL Neutrophils (%) (Auto) 70.4 % Lymphocytes (%) (Auto) 8.7 % Monocytes (%) (Auto) 17.0 % Eosinophils (%) (Auto) 2.9 % Basophils (%) (Auto) 0.7 % Neutrophils # (Auto) 8.75 K/uL Lymphocytes # (Auto) 1.08 K/uL Monocytes # (Auto) 2.11 K/uL Eosinophils # (Auto) 0.36 K/uL Basophils # (Auto) 0.09 K/uL RDW Standard Deviation 49.5 fL RDW Coefficient of Variation 15.3 % Immature Granulocyte % (Auto) 0.3 % Immature Granulocyte # (Auto) 0.04 K/uL Prothrombin Time 12.3 SECONDS Prothromb Time International Ratio 1.1 Activated Partial Thromboplast Time 29.8 SECONDS Partial Thromboplastin Ratio 1.1 Sodium Level 137 mmol/L Potassium Level 4.7 mmol/L Chloride Level 98 mmol/L Carbon Dioxide Level 26 mmol/L Anion Gap 13.0 mmol/L Blood Urea Nitrogen 116 mg/dl Creatinine 8.00 mg/dl Est Creatinine Clear Calc Drug Dose 15.5 ml/min Estimated GFR () 8.6 Estimated GFR (Non- 7.4 BUN/Creatinine Ratio 14.5 Random Glucose 162 mg/dl Calcium Level 10.7 mg/dl Total Bilirubin 1.0 mg/dl Aspartate Amino Transf (AST/SGOT) 24 U/L Alanine Aminotransferase (ALT/SGPT) 12 U/L Alkaline Phosphatase 206 U/L Total Protein 9.0 gm/dl Albumin 2.7 gm/dl Globulin 6.3 gm/dl Albumin/Globulin Ratio 0.4 Bedside Glucose 137 mg/dl Assessment & Plan 41 yo M with multiple medical problems presented to the hospital yesteray, same day as discharge, after L anterior chets hemodialysis catheter began bleeding. The patient reports calling the Hospitalist pager and was advised. He reports monitoring the area but states that the bleeding continued so he called EMS as he currently cannot drive and his mother advised him she wanted him to take an ambulance, she would not pick him up. In the ER, he reports the pressure application was hurting too much and so was the sandbag. He was advised that this is the treatment and unfortunately it is not always the most comfortable. He subsequently received a pressure bandage and Vascular surgery saw him and recommends to continue pressure on the area for 24 hours. The patient is not on blood thinners. Home aspirin was held. Incidentally he is also refusing SCDs an verbalized understanding of the risks of blood clots if not compliant. Mother witnessed this conversation. We also discussed briefly the other possibilities such as AV grafting which is not immediate, and replacement of the HD catheter if the bleeding cannot be controlled. Will follow Vascular Surg recs. He is currently HD stable and has had no rop in H/H, bleeding is controlled with pressure bandage in place. Nephro to assist with inpatient dialysis while he is here. ISS ordered, Lantus placed on hold with recent hypoglycemia over the last few days; patient reports that he isn't eating like he normally does at home. Has a MRSA wound on butocks, which is not requiring packing at this time. Gen Surg follow-up is in one week and he continues on a 21 ay doxy course. He is compensated from a heart failure standpoint. Active problems: 1. Bleeding from HD cathether site placed 08/03 2. ESRD on HD as of 08/04 3. NICM 4. L butock MRSA wound-on doxy 5. Sciatica on L 6. Anemia-multifactorial in setting of ESRD-stable 7. Leukocytosis DVT proph: SCDs [facility] Consultants: Vascular, Nephro Current Inpatient Medications: Current Inpatient Medications Medications (Trade) Dose Ordered Sig/Niki Route Start Time Stop Time Status Last Admin Dose Admin Miscellaneous (Iv Fluids Completed) 1 ea PRN PRN N/A 08/08/16 05:00 08/08/17 04:59 Acetaminophen (Tylenol Tab) 650 mg Q4H PRN PO 08/08/16 05:00 09/07/16 04:59 Insulin Aspart (novoLOG ASPART) SLIDING SCALE If C... ACHS SC 08/08/16 07:00 09/07/16 06:59 Glucose (Glucose 40% Gel) 15-30 GRAMS 15 GRAMS... UD PRN PO 08/08/16 05:00 09/07/16 04:59 Glucose (Glucose Chew Tab) 4-8 Tablets 4 Tabl... UD PRN PO 08/08/16 05:00 09/07/16 04:59 Dextrose (Dextrose 50% 50ML Syringe) 25-50ML OF 50% DW IV FOR... UD PRN IV 08/08/16 05:00 09/07/16 04:59 Glucagon (Glucagon Inj) 1 mg UD PRN SQ 08/08/16 05:00 09/07/16 04:59 Hydromorphone HCl (Dilaudid Inj) 0.5 mg Q6H PRN IV 08/08/16 05:00 08/22/16 04:59 Ondansetron HCl (Zofran Inj) 4 mg Q6H PRN IV 08/08/16 05:00 09/07/16 04:59 Tramadol HCl (Ultram Tab) 25 mg Q6H PRN PO 08/08/16 05:00 09/07/16 04:59 Doxycycline Hyclate (Vibramycin Cap) 100 mg BID PO 08/08/16 09:00 08/15/16 08:59 08/08/16 08:31 100 MG Hydralazine HCl (Apresoline Tab) 50 mg TID PO 08/08/16 09:00 09/07/16 08:59 08/08/16 08:34 50 MG Isosorbide Dinitrate (Isordil Tab) 20 mg BID@0700,1200 PO 08/08/16 07:00 09/07/16 06:59 08/08/16 06:40 20 MG Metolazone (Zaroxolyn Tab) 5 mg DAILY@0830 PO 08/08/16 08:30 09/07/16 08:29 08/08/16 08:29 5 MG Metoprolol Succinate (Toprol Xl Tab) 12.5 mg BID PO 08/08/16 09:00 09/07/16 08:59 08/08/16 08:32 12.5 MG Tobramycin Sulfate (Tobrex Oph Soln) 1 drops DAILY OPL 08/08/16 09:00 08/18/16 08:59 08/08/16 08:34 1 DROPS Torsemide (Demadex Tab) 20 mg QPM PO 08/08/16 21:00 09/07/16 20:59 Torsemide (Demadex Tab) 100 mg DAILY@0900 PO 08/08/16 09:00 09/07/16 08:59 08/08/16 08:59 100 MG Calcitriol (Rocaltrol Cap) 0.5 mcg MoWeFr@0900 PO 08/08/16 09:00 09/07/16 08:59 08/08/16 08:33 0.5 MCG Insulin Glargine (Lantus Solostar Pen) 10 unit BID SC 08/08/16 09:00 09/07/16 08:59 08/08/16 08:58 10 UNIT Lorazepam 0.5 mg/ Syringe 1 ml @ 1 mls/min Q4H PRN IV 08/08/16 06:00 09/07/16 05:59 Sevelamer HCl (Renvela) 800 mg AC PO 08/08/16 12:00 09/07/16 11:59
--- NOTE | 2016-08-08 11:24 | Nephrology Consultation ---
Nephrology Consultation Date & Providers Date of Consultation: Aug 08, 2016. Primary Care Provider: Miguelina Doctor, Assigned Referring Provider: History of Present Illness Cliff Is a 41-year-old male with past medical history significant for end-stage renal disease recently started on hemodialysis, hypertension, diabetes, idiopathic cardiomyopathy admitted to the hospital with have bleeding from tunnel dialysis catheter site. Nephrologic consult was requested to manage hemodialysis while in the hospital. Cliff was just recently admitted to the hospital when he was started on hemodialysis via tunnel dialysis catheter. He had his 2nd dialysis treatment on Saturday and yesterday he was discharged with a plan to have dialysis today at [facility] in [place]. After discharge he noticed bleeding from dialysis catheter area and he came back to the emergency department via EMS. He was seen by vascular surgery and currently has pressure dressing applied and bleeding seems to have stopped. Currently his blood pressure, volume status and electrolyte acceptable. He continues to make urine. Denies any nausea or abdominal pain, shortness of breath or chest pain. He is planned eventually to go to peritoneal dialysis. He has idiopathic cardiomyopathy with chronic systolic CHF, has an ICD and history of ventricular arrhythmia in the past. Has hypertension as well as adult onset diabetes mellitus. He underwent a left heart catheterization previously which did not show significant coronary artery disease. Most recent hemoglobin A1c was 8.2 in May. He denies significant retinopathy or neuropathy. He has visual loss associated with cataracts. He is planning on scheduling surgery for cataract extraction in the near future. This would be scheduled at [facility] in [facility]. Cliff also reports a significant history of morbid obesity. He has been able to lose nearly 100 lbs over the past several years using diet and regular walking exercise. Allergies Coded Allergies: Cat Dander (Verified Allergy, Intermediate, RESPIRATORY SX, 08/08/16) Dust (Verified Allergy, Intermediate, ASTHMA SYMPTOMS, 08/08/16) Heparin (Verified Allergy, Intermediate, GI SYMPTOMS, 08/08/16) Unclassified Drugs (Verified Allergy, Unknown, SOB/COUGH FROM CIGARETTE SMOKE, 08/08/16) Inpatient Medications Current Inpatient Medications Medications (Trade) Dose Ordered Sig/Niki Route Start Time Stop Time Status Last Admin Dose Admin Miscellaneous (Iv Fluids Completed) 1 ea PRN PRN N/A 08/08/16 05:00 08/08/17 04:59 Acetaminophen (Tylenol Tab) 650 mg Q4H PRN PO 08/08/16 05:00 09/07/16 04:59 Insulin Aspart (novoLOG ASPART) SLIDING SCALE If C... ACHS SC 08/08/16 07:00 09/07/16 06:59 Glucose (Glucose 40% Gel) 15-30 GRAMS 15 GRAMS... UD PRN PO 08/08/16 05:00 09/07/16 04:59 Glucose (Glucose Chew Tab) 4-8 Tablets 4 Tabl... UD PRN PO 08/08/16 05:00 09/07/16 04:59 Dextrose (Dextrose 50% 50ML Syringe) 25-50ML OF 50% DW IV FOR... UD PRN IV 08/08/16 05:00 09/07/16 04:59 Glucagon (Glucagon Inj) 1 mg UD PRN SQ 08/08/16 05:00 09/07/16 04:59 Hydromorphone HCl (Dilaudid Inj) 0.5 mg Q6H PRN IV 08/08/16 05:00 08/22/16 04:59 Ondansetron HCl (Zofran Inj) 4 mg Q6H PRN IV 08/08/16 05:00 09/07/16 04:59 Tramadol HCl (Ultram Tab) 25 mg Q6H PRN PO 08/08/16 05:00 09/07/16 04:59 Doxycycline Hyclate (Vibramycin Cap) 100 mg BID PO 08/08/16 09:00 08/15/16 08:59 08/08/16 08:31 100 MG Hydralazine HCl (Apresoline Tab) 50 mg TID PO 08/08/16 09:00 09/07/16 08:59 08/08/16 08:34 50 MG Isosorbide Dinitrate (Isordil Tab) 20 mg BID@0700,1200 PO 08/08/16 07:00 09/07/16 06:59 08/08/16 06:40 20 MG Metolazone (Zaroxolyn Tab) 5 mg DAILY@0830 PO 08/08/16 08:30 09/07/16 08:29 08/08/16 08:29 5 MG Metoprolol Succinate (Toprol Xl Tab) 12.5 mg BID PO 08/08/16 09:00 09/07/16 08:59 08/08/16 08:32 12.5 MG Tobramycin Sulfate (Tobrex Oph Soln) 1 drops DAILY OPL 08/08/16 09:00 08/18/16 08:59 08/08/16 08:34 1 DROPS Torsemide (Demadex Tab) 20 mg QPM PO 08/08/16 21:00 09/07/16 20:59 Torsemide (Demadex Tab) 100 mg DAILY@0900 PO 08/08/16 09:00 09/07/16 08:59 08/08/16 08:59 100 MG Calcitriol (Rocaltrol Cap) 0.5 mcg MoWeFr@0900 PO 08/08/16 09:00 09/07/16 08:59 08/08/16 08:33 0.5 MCG Insulin Glargine (Lantus Solostar Pen) 10 unit BID SC 08/08/16 09:00 09/07/16 08:59 08/08/16 08:58 10 UNIT Lorazepam 0.5 mg/ Syringe 1 ml @ 1 mls/min Q4H PRN IV 08/08/16 06:00 09/07/16 05:59 Sevelamer HCl (Renvela) 800 mg AC PO 08/08/16 12:00 09/07/16 11:59 UNV Family History Patient reports no known family medical history. Social History Smoking Status: Former Smoker Marital Status: single Occupation: unemployed Review of Systems A complete review of systems was performed. Pertinent positives are noted above. All other systems are negative. Physical Exam Date Time Temp Pulse Resp B/P (MAP) Pulse Ox O2 Delivery O2 Flow Rate FiO2 08/08/16 07:36 Room Air 08/08/16 07:26 37.1 80 18 172/96 (121) 97 Room Air 08/08/16 06:42 157/91 (113) 08/08/16 05:52 37.0 78 20 154/99 98 Room Air 08/08/16 05:26 79 16 163/92 96 08/08/16 04:10 79 08/08/16 03:54 79 16 152/97 94 Room Air 08/08/16 03:00 79 16 154/95 98 Room Air 08/08/16 02:07 78 16 155/95 95 Room Air 08/08/16 00:26 78 16 147/88 96 Room Air 08/08/16 00:04 80 08/08/16 00:00 36.8 80 16 147/90 99 Room Air 08/08/16 00:00 99 Room Air GENERAL: young male, AAA x 3, pleasant, healthy-appearing, not in any distress. HEENT: Atraumatic, normocephalic. NECK: Supple, no JVD, no carotid bruit appreciated. CHEST: left chest TDC exit area with pressure dressing, no active bleeding. ENT: No sinus tenderness MOUTH and THROAT: Moist oral mucosa, no oral ulcer or pharyngeal erythema RESPIRATORY: Normal breathing efforts, no accessory muscle use, clear to auscultation bilaterally, no wheezes or rales. CARDIOVASCULAR: S1, S2 normal, rate rhythm regular. ABDOMEN: Soft, nontender, positive bowel sound. MUSCULOSKELETAL: No CVA tenderness. No joint swelling, erythema or tenderness. Normal range of motion. SKIN: No skin rash EXTREMITY: No lower extremity edema NEURO: No gross focal neurological deficit, speech fluent. PSYCHIATRY: Normal mood and judgment Laboratory Results Last 24 Hours Test 08/08/16 00:10 08/08/16 05:50 White Blood Count 12.43 K/uL Red Blood Count 3.64 M/uL Hemoglobin 10.9 g/dL 10.8 g/dL Hematocrit 32.6 % 33.6 % Mean Corpuscular Volume 89.1 fL Mean Corpuscular Hemoglobin 29.9 pg Mean Corpuscular Hemoglobin Concent 33.4 g/dl Platelet Count 288 K/uL Mean Platelet Volume 11.5 fL Neutrophils (%) (Auto) 70.4 % Lymphocytes (%) (Auto) 8.7 % Monocytes (%) (Auto) 17.0 % Eosinophils (%) (Auto) 2.9 % Basophils (%) (Auto) 0.7 % Neutrophils # (Auto) 8.75 K/uL Lymphocytes # (Auto) 1.08 K/uL Monocytes # (Auto) 2.11 K/uL Eosinophils # (Auto) 0.36 K/uL Basophils # (Auto) 0.09 K/uL RDW Standard Deviation 49.5 fL RDW Coefficient of Variation 15.3 % Immature Granulocyte % (Auto) 0.3 % Immature Granulocyte # (Auto) 0.04 K/uL Prothrombin Time 12.3 SECONDS Prothromb Time International Ratio 1.1 Activated Partial Thromboplast Time 29.8 SECONDS Partial Thromboplastin Ratio 1.1 Sodium Level 137 mmol/L Potassium Level 4.7 mmol/L Chloride Level 98 mmol/L Carbon Dioxide Level 26 mmol/L Anion Gap 13.0 mmol/L Blood Urea Nitrogen 116 mg/dl Creatinine 8.00 mg/dl Est Creatinine Clear Calc Drug Dose 15.5 ml/min Estimated GFR () 8.6 Estimated GFR (Non- 7.4 BUN/Creatinine Ratio 14.5 Random Glucose 162 mg/dl Calcium Level 10.7 mg/dl Total Bilirubin 1.0 mg/dl Aspartate Amino Transf (AST/SGOT) 24 U/L Alanine Aminotransferase (ALT/SGPT) 12 U/L Alkaline Phosphatase 206 U/L Total Protein 9.0 gm/dl Albumin 2.7 gm/dl Globulin 6.3 gm/dl Albumin/Globulin Ratio 0.4 Impression (1) Secondary hyperparathyroidism of renal origin (2) ESRD (end stage renal disease) on dialysis (3) Anemia (4) Hemorrhage from dialysis catheter (5) Diabetes (6) Hypertension (7) Idiopathic cardiomyopathy 41-year-old gentlemen with end-stage renal disease, recent start on hemodialysis , discharged yesterday however he came back within few hours with bleeding from dialysis catheter area. Currently bleeding stopped with pressure dressing. He is due for dialysis today, blood pressure, electrolyte and volume status stable as he continues to make decent amount of urine daily. Currently he is otherwise asymptomatic. Recently had tunnel dialysis catheter placed, has spot available for outpatient dialysis at [facility] [place], eventually his plan to start on peritoneal dialysis. Past medical history significant for hypertension, diabetes, idiopathic cardiomyopathy with their chronic congestive heart failure, status post AICD. Recommendations --Plan for 4 hours dialysis today with F160 with low blood flow considering significant azotemia and 3rd treatment today, aim for UF 500 mL to 1 liters --avoid IV fluid --hemoglobin stable at 10.8, no need for RAYNA --continue on Renvela with each meal, nephrocaps --hopefully can be discharged by tomorrow and go to outpt dialysis unit for next Rx on Saturday Thank you for allowing me to participate in your patient's care. It was a pleasure to see Cliff This chart was completed utilizing [employer] Speech and voice recognition software. Grammatical errors, random word insertions, pronoun errors and incomplete sentences are occasional consequences of this system. Any questions or concerns about the content, text or information contained within the body of this dictation should be addressed directly to the physician for clarification.
[2016-08-08] MEDS: RENVELA 800 MG PO SCH ×2 (12:00→17:15)
[2016-08-08 17:06] LABS: HEMATOCRIT 32.6 % (42-52)
[2016-08-08] MEDS ORDERED: TORSEMIDE 20 MG TAB PO SCH (21:00)
[2016-08-09 02:35] VITALS: BP 149/85; PULSE 88; TEMP 37.3; O2SAT 97
[2016-08-09] MEDS: ISOSORBIDE DINITRATE 20 MG TAB PO SCH ×2 (06:27→13:31)
[2016-08-09 06:59] LABS: BASO % 0.7 %; BASO ABS # 0.09 K/uL (0-0.2); COMPLETE YES; EOS % 3.2 %; HEMATOCRIT 32.2 % (42-52); IG% 0.3 %; LYMPH ABS # 1.25 K/uL (1.2-3.4); MEAN CELL VOLUME 91.5 fL (80-100); MEAN CORPUSCULAR HEMOGLOBIN 29.8 pg (25-34); MEAN CORPUSCULAR HGB CONC 32.6 g/dl (32-36); MEAN PLATELET VOLUME 10.4 fL (7.4-10.4); MONO % 17.5 %; NEUT % 69.3 %; PLATELET COUNT 261 K/uL (130-400); RED BLOOD COUNT 3.52 M/uL (4.7-6.1); WHITE BLOOD COUNT 13.83 K/uL (4.8-10.8)
[2016-08-09 07:54] LABS: BUN/CREATININE RATIO 11.2 (10-20); CALCIUM 10.7 mg/dl (8.5-10.1); POTASSIUM 4.1 mmol/L (3.5-5.1)
[2016-08-09 08:06] VITALS: BP 138/76; PULSE 80; TEMP 37.2; O2SAT 95
[2016-08-09] MEDS: RENVELA 800 MG PO SCH ×2 (08:13→13:30)
[2016-08-09] MEDS: METOLAZONE 5 MG TAB PO SCH (08:14)
[2016-08-09] MEDS: DOXYCYCLINE HYCLATE 100 MG CAP PO SCH (08:59)
[2016-08-09] MEDS: METOPROLOL SUCC 25MG EXT REL TAB PO SCH (08:59)
[2016-08-09] MEDS: TOBRAMYCIN SULF 0.3% OP SOLN 5 ML BTL OPL SCH (08:59)
[2016-08-09] MEDS: TORSEMIDE 20 MG TAB PO SCH (09:00)
[2016-08-09] MEDS: INSULIN ASPART 100 UNITS/ML 3 ML PEN SC SCH ×2 (09:02→13:32)
--- NOTE | 2016-08-09 11:57 | Nephrology Progress Note ---
Nephrology Progress Note Date of Service Aug 09, 2016. Chief Complaint Follow-up for end-stage renal disease on hemodialysis. Subjective Cliff Was seen and examined in his room this morning. He had dialysis yesterday for 4 hours tolerated well however h felt it was too long. explained that that is standard minimum time for dialysis treatment. currently blood pressure, electrolyte and volume status acceptable. Tunnel catheter area with pressure dressing, bleeding seems to have stopped Review of Systems A complete review of systems was performed. Pertinent positives are noted above. All other systems are negative. Vital Signs Last 8 Hrs Date Time Temp Pulse Resp B/P (MAP) Pulse Ox O2 Delivery O2 Flow Rate FiO2 08/09/16 08:10 Room Air 08/09/16 08:06 37.2 80 18 138/76 (96) 95 Room Air 08/09/16 02:35 37.3 88 16 149/85 (106) 97 Room Air Last Recorded Weight Weight (Kilograms): 103.400 Physical Exam GENERAL: Young male, AAA x 3, pleasant, healthy-appearing, not in any distress. NECK: Supple, no JVD. Chest: Left chest IJ tunnel dialysis catheter area with pressure dressing, dressing soaked, with old blood and some blood clot. RESPIRATORY: Normal breathing efforts, no accessory muscle use, clear to auscultation bilaterally, no wheezes or rales. CARDIOVASCULAR: S1, S2 normal, rate rhythm regular. EXTREMITY: No lower extremity edema NEURO: speech fluent. PSYCHIATRY: Normal mood and judgment Family History Patient reports no known family medical history. Social History Alcohol Use: none Marital Status: single Occupation: unemployed, other (applying for disability) Laboratory Results Past 24 Hours 08/08/16 16:30 08/09/16 06:41 Red Blood Count 3.52, Mean Corpuscular Volume 91.5, Mean Corpuscular Hemoglobin 29.8, Mean Corpuscular Hemoglobin Concent 32.6, Mean Platelet Volume 10.4, Neutrophils (%) (Auto) 69.3, Lymphocytes (%) (Auto) 9.0, Monocytes (%) (Auto) 17.5, Eosinophils (%) (Auto) 3.2, Basophils (%) (Auto) 0.7, Neutrophils # (Auto ) 9.59, Lymphocytes # (Auto) 1.25, Monocytes # (Auto) 2.42, Eosinophils # (Auto ) 0.44, Basophils # (Auto) 0.09 08/09/16 06:41 Test 08/08/16 11:48 08/08/16 16:58 08/08/16 20:30 08/09/16 06:41 Bedside Glucose 137 mg/dl (70-99) 97 mg/dl (70-99) 143 mg/dl (70-99) White Blood Count 13.83 K/uL (4.8-10.8) Red Blood Count 3.52 M/uL (4.7-6.1) Hemoglobin 10.5 g/dL (14.0-18.0) Hematocrit 32.2 % (42-52) Mean Corpuscular Volume 91.5 fL (80-100) Mean Corpuscular Hemoglobin 29.8 pg (25-34) Mean Corpuscular Hemoglobin Concent 32.6 g/dl (32-36) Platelet Count 261 K/uL (130-400) Mean Platelet Volume 10.4 fL (7.4-10.4) Neutrophils (%) (Auto) 69.3 % Lymphocytes (%) (Auto) 9.0 % Monocytes (%) (Auto) 17.5 % Eosinophils (%) (Auto) 3.2 % Basophils (%) (Auto) 0.7 % Neutrophils # (Auto) 9.59 K/uL (1.4-6.5) Lymphocytes # (Auto) 1.25 K/uL (1.2-3.4) Monocytes # (Auto) 2.42 K/uL (0.11-0.59) Eosinophils # (Auto) 0.44 K/uL (0-0.5) Basophils # (Auto) 0.09 K/uL (0-0.2) RDW Standard Deviation 51.0 fL (36.4-46.3) RDW Coefficient of Variation 15.6 % (11.5-14.5) Immature Granulocyte % (Auto) 0.3 % Immature Granulocyte # (Auto) 0.04 K/uL (0.00-0.02) Anion Gap 10.0 mmol/L (3-11) Est Creatinine Clear Calc Drug Dose 20.7 ml/min Estimated GFR () 12.2 Estimated GFR (Non- 10.5 BUN/Creatinine Ratio 11.2 (10-20) Calcium Level 10.7 mg/dl (8.5-10.1) Test 08/09/16 08:07 Bedside Glucose 85 mg/dl (70-99) Allergies Coded Allergies: Cat Dander (Verified Allergy, Intermediate, RESPIRATORY SX, 08/08/16) Dust (Verified Allergy, Intermediate, ASTHMA SYMPTOMS, 08/08/16) Heparin (Verified Allergy, Intermediate, GI SYMPTOMS, 08/08/16) Unclassified Drugs (Verified Allergy, Unknown, SOB/COUGH FROM CIGARETTE SMOKE, 08/08/16) Medications Current Inpatient Medications Medications (Trade) Dose Ordered Sig/Niki Route Start Time Stop Time Status Last Admin Dose Admin Miscellaneous (Iv Fluids Completed) 1 ea PRN PRN N/A 08/08/16 05:00 08/08/17 04:59 Acetaminophen (Tylenol Tab) 650 mg Q4H PRN PO 08/08/16 05:00 09/07/16 04:59 Insulin Aspart (novoLOG ASPART) SLIDING SCALE If C... ACHS SC 08/08/16 07:00 09/07/16 06:59 Glucose (Glucose 40% Gel) 15-30 GRAMS 15 GRAMS... UD PRN PO 08/08/16 05:00 09/07/16 04:59 Glucose (Glucose Chew Tab) 4-8 Tablets 4 Tabl... UD PRN PO 08/08/16 05:00 09/07/16 04:59 Dextrose (Dextrose 50% 50ML Syringe) 25-50ML OF 50% DW IV FOR... UD PRN IV 08/08/16 05:00 09/07/16 04:59 Glucagon (Glucagon Inj) 1 mg UD PRN SQ 08/08/16 05:00 09/07/16 04:59 Hydromorphone HCl (Dilaudid Inj) 0.5 mg Q6H PRN IV 08/08/16 05:00 08/22/16 04:59 Ondansetron HCl (Zofran Inj) 4 mg Q6H PRN IV 08/08/16 05:00 09/07/16 04:59 Tramadol HCl (Ultram Tab) 25 mg Q6H PRN PO 08/08/16 05:00 09/07/16 04:59 Doxycycline Hyclate (Vibramycin Cap) 100 mg BID PO 08/08/16 09:00 08/15/16 08:59 08/08/16 20:54 100 MG Hydralazine HCl (Apresoline Tab) 50 mg TID PO 08/08/16 09:00 09/07/16 08:59 08/08/16 20:53 50 MG Isosorbide Dinitrate (Isordil Tab) 20 mg BID@0700,1200 PO 08/08/16 07:00 09/07/16 06:59 08/09/16 06:27 20 MG Metolazone (Zaroxolyn Tab) 5 mg DAILY@0830 PO 08/08/16 08:30 09/07/16 08:29 08/09/16 08:14 5 MG Metoprolol Succinate (Toprol Xl Tab) 12.5 mg BID PO 08/08/16 09:00 09/07/16 08:59 08/08/16 20:54 12.5 MG Tobramycin Sulfate (Tobrex Oph Soln) 1 drops DAILY OPL 08/08/16 09:00 08/18/16 08:59 08/08/16 08:34 1 DROPS Torsemide (Demadex Tab) 20 mg QPM PO 08/08/16 21:00 09/07/16 20:59 08/08/16 20:54 20 MG Torsemide (Demadex Tab) 100 mg DAILY@0900 PO 08/08/16 09:00 09/07/16 08:59 08/08/16 08:59 100 MG Calcitriol (Rocaltrol Cap) 0.5 mcg MoWeFr@0900 PO 08/08/16 09:00 09/07/16 08:59 08/08/16 08:33 0.5 MCG Insulin Glargine (Lantus Solostar Pen) 10 unit BID SC 08/08/16 09:00 09/07/16 08:59 Future Hold 08/08/16 08:58 10 UNIT Lorazepam 0.5 mg/ Syringe 1 ml @ 1 mls/min Q4H PRN IV 08/08/16 06:00 09/07/16 05:59 Sevelamer HCl (Renvela) 800 mg AC PO 08/08/16 12:00 09/07/16 11:59 08/09/16 08:13 800 MG Impression (1) Secondary hyperparathyroidism of renal origin (2) ESRD (end stage renal disease) on dialysis (3) Anemia (4) Hemorrhage from dialysis catheter (5) Diabetes (6) Hypertension (7) Idiopathic cardiomyopathy 41-year-old gentlemen with end-stage renal disease, recent start on hemodialysis , discharged yesterday however he came back within few hours with bleeding from dialysis catheter area. Currently bleeding stopped with pressure dressing. He is due for dialysis today, blood pressure, electrolyte and volume status stable as he continues to make decent amount of urine daily. Currently he is otherwise asymptomatic. Recently had tunnel dialysis catheter placed, has spot available for outpatient dialysis at [facility] in to [place], eventually his plan to start on peritoneal dialysis. Past medical history significant for hypertension, diabetes, idiopathic cardiomyopathy with their chronic congestive heart failure, status post AICD. Recommendations --Had 4 hours dialysis yesterday with F160 , tolerated well --avoid IV fluid --hemoglobin stable, no need for RAYNA --continue on Renvela with each meal, nephrocaps --dialysis tomorrow, however he still has the pressure dressing and blood clots and old bleeding although active bleeding seems to have stopped --suggest discussion with vascular surgery about the catheter dressing management before discharge. patient has spot available for treatment tomorrow at [place] dialysis unit. Will follow
[2016-08-09] MEDS ORDERED: LORAZEPAM 0.5 MG TAB PO PRN (12:15)
[2016-08-09] MEDS ORDERED: NURSING VERBAL MED ORDER ONE (12:30)
[2016-08-09] MEDS ORDERED: LIDOCAINE/EPINEPHRINE 1% 20 ML VIAL INFIL ONE (12:30)
--- NOTE | 2016-08-09 13:51 | Progress Note ---
Progress Note Date of Service Aug 09, 2016. Progress Note Minimal bleeding seen at exit site. this was injected with 1% lidocaine with epi. No further bleeding was noted. Dressings reapplied
[2016-08-09 16:00] VITALS: BP 135/72; PULSE 87; TEMP 37; O2SAT 96
[2016-08-09 17:35] VITALS: BP 135/72; PULSE 87; TEMP 37; O2SAT 96
--- NOTE | 2016-08-09 17:55 | Discharge Instructions ---
Discharge Instructions Date of Service Aug 09, 2016. Admission Reason for Admission: Hemorrhage From Dialysis Catheter Discharge Discharge Diagnosis / Problem: Bleeding from HD catheter Discharge Goals Goal(s): Prevent Disease Progression Activity Recommendations Activity Limitations: per Instructions/Follow-up section . Instructions / Follow-Up Instructions / Follow-Up Please take all medications as instructed. You have a follow-up appointment scheduled with Dr. Lidia Garay in [place] ([facility]) on 08/16 @ 2:45pm. This is for follow-up from this hospitalization. At this appointment, referrals can be placed to see Neurology for outpatient evaluation for your hand. Please contact [facility] Neurology for an appointment to consider nerve conduction studies on your hand. The case was discussed with Pinky Varghese PA-C and Dr. Mike Pruitt is also aware. Their number is You will continue the Doxycycline antibiotic as previously prescribed. Home Health nursing has been ordered to help with daily packing of the wound until it closes. You will need to follow-up with Dr. Familia Briceno in [facility]- General Surgery office in one week. The number to his office is . Please hold the Lantus until you see Dr. Garay, and please check your blood sugar at home and bring these readings to all your appointments. I would recommend am fasting readings and two hours after eating 1 or 2 meals. Be sure to document the time of day, too. You will need to follow-up with Dr. Mccarty's office (Orthopedics) in one week for re-evaluation of your hand. Please call [phone] for an appointment. A brace has been ordered for you. Continue all recommendations from Nephrology including weekly iron infusions which will be orchestrated during your dialysis treatments. Cont with dialysis treatments three times per week as scheduled in [place]. It was a pleasure taking care of you! Call if you have any questions or problems. You can reach a [facility] hospitalist on duty at [facility] 24 hours a day by calling [phone]. Take care of yourself. Lily Díaz, [facility] Hospitalist Current Hospital Diet Patient's current hospital diet: Diabetes Type 2 Diet, Renal Diet Discharge Diet Recommended Diet: Diabetes Type 2 Diet, Renal Diet Procedures Procedures Performed: Epi injection abhishek catheter Pending Studies Studies pending at discharge: no Laboratory Results Hemoglobin A1c Test 08/02/16 11:18 Range/Units Estimated Average Glucose 186 mg/dl Hemoglobin A1c 8.1 H 4.5-5.6 % Medical Emergencies . Who to Call and When: Medical Emergencies: If at any time you feel your situation is an emergency, please call 911 immediately. . Non-Emergent Contact Non-Emergency issues call your: Primary Care Provider . . "Provider Documentation" section prepared by Lily Díaz. . VTE Core Measure Inpt VTE Proph given/why not?: Refusal of treatmnt by pt
--- NOTE | 2016-08-09 17:58 | Discharge Summary ---
Discharge Summary Date of Service Aug 09, 2016. Discharge Summary Admission Date: Aug 08, 2016 at 04:53 Discharge Date: Aug 09, 2016 Discharge Disposition: Home with services Principal Diagnosis: Active problems: 1. Bleeding from HD cathether site placed 08/03-resolved 2. ESRD on HD as of 08/04 3. NICM 4. L buttock MRSA wound-on doxy 5. Sciatica on L-resolved per patient 6. Anemia-multifactorial in setting of ESRD-stable 7. Leukocytosis 8. Right wrist neuropathy/wound Procedures: epinephrine injection to subQ tissues around HD site after 24 hours of pressure dressing Vaccinations: None. Consultations: Vascular, Nephro Pending Studies/Follow-Up: see instructions below. Medication Reconciliation Continued Medications: Albuterol Hfa (Ventolin Hfa) 200 Puffs/13620 Mcg Aers 2 PUFFS INH Q6H PRN for SOB/Wheezing, INHALER Aspirin (Aspirin Ec) 81 Mg Tab 81 MG PO DAILY B-Complex W/ C & Folic Acid (Renal) 1 Cap Cap 1 CAP PO QAM for 30 Days, #30 CAP Calcitriol (Calcitriol) 0.5 Mcg Cap 1 CAP PO MoWeFr@0900 for 30 Days, #15 CAP 1 Refill Doxycycline Hyclate (Doxycycline Hyclate) 100 Mg Cap 100 MG PO BID for 21 Days, #42 CAP Hydralazine Hcl (Apresoline) 50 Mg Tab 50 MG PO TID, TAB Insulin Aspart (Novolog Flexpen) 100 Units/Ml Inj UNITS SC AC DOSED PER SLIDING SCALE Isosorbide Dinitrate (Isordil) 20 Mg Tab 20 MG PO BID TAKE AT 8am & 4pm Metolazone (Zaroxolyn) 5 Mg Tab 5 MG PO DAILY, TAB Metoprolol Succinate (Metoprolol Succinate ER) 25 Mg Tabcr 12.5 MG PO BID for 30 Days, #30 TAB Sevelamer Carbonate (Renvela) 800 Mg Tab 1 TAB PO AC, 3 Refills Spironolactone (Aldactone) 25 Mg Tab 25 MG PO DAILY, TAB Tobramycin Sulfate (Ophth) (Tobrex Oph Jessica) 0.3 % Jessica 1 DROPS OPL DAILY for 7 Days, #5 ML Torsemide (Demadex) 20 Mg Tab 20 MG PO QPM Torsemide (Demadex) 100 Mg Tab 100 MG PO QAM Admission Information HPI (per Admitting provider): Recent confinement August 02 for atypical chest pain, end-stage renal disease. Hemodialysis initiated during recent confinement via left IJ catheter placed by by Vascular Surgery. Yesterday afternoon patient noted bleeding on dialysis catheter site. No chest pain no shortness of breath. Denies trauma or undue exertion. At the ER, patient intolerant of manual pressure and sandbag intervention advised by vascular surgeon. Physical Exam (per Admitting): General Appearance: + pertinent finding (anxious) Head: normocephalic Eyes: + pertinent finding (pale palpebral conjunctivae, dry mucosa) Neck: supple Respiratory/Chest: + decreased breath sounds, + pertinent finding (dialysis catheter site on left anterior chest wall, dried blood under protective dressing ) Abdomen/GI: soft Extremities/Musculoskelatal: non-tender Neurologic/Psych: alert Skin: + pertinent finding ([place]) Hospital Course 41 yo M with multiple medical problems presented to the hospital yesteray, same day as discharge, after L anterior chets hemodialysis catheter began bleeding. The patient reports calling the Hospitalist pager and was advised. He reports monitoring the area but states that the bleeding continued so he called EMS as he currently cannot drive and his mother advised him she wanted him to take an ambulance, she would not pick him up. In the ER, he reports the pressure application was hurting too much and so was the sandbag. He was advised that this is the treatment and unfortunately it is not always the most comfortable. He subsequently received a pressure bandage and Vascular surgery saw him and recommends to continue pressure on the area for 24 hours. The patient is not on blood thinners. Home aspirin was held. Incidentally he is also refusing SCDs an verbalized understanding of the risks of blood clots if not compliant. Mother witnessed this conversation. We also discussed briefly the other possibilities such as AV grafting which is not immediate, and replacement of the HD catheter if the bleeding cannot be controlled. Will follow Vascular Surg recs. He is currently HD stable and has had no rop in H/H, bleeding is controlled with pressure bandage in place. Nephro to assist with inpatient dialysis while he is here. ISS ordered, Lantus placed on hold with recent hypoglycemia over the last few days; patient reports that he isn't eating like he normally does at home. Has a MRSA wound on butocks, which is not requiring packing at this time. Gen Surg follow-up is in one week and he continues on a 21 ay doxy course. He is compensated from a heart failure standpoint. Active problems: 1. Bleeding from HD cathether site placed 08/03 2. ESRD on HD as of 08/04 3. NICM 4. L butock MRSA wound-on doxy 5. Sciatica on L 6. Anemia-multifactorial in setting of ESRD-stable 7. Leukocytosis DVT proph: SCDs Full Code Lily Díaz DO [facility] Hospitalist Total time spent on discharge = 60 minutes This includes examination of the patient, discharge planning, medication reconciliation, and communication with other providers. Discharge Instructions Discharge Instructions Date of Service Aug 09, 2016. Admission Reason for Admission: Hemorrhage From Dialysis Catheter Discharge Discharge Diagnosis / Problem: Bleeding from HD catheter Discharge Goals Goal(s): Prevent Disease Progression Activity Recommendations Activity Limitations: per Instructions/Follow-up section . Instructions / Follow-Up Instructions / Follow-Up Please take all medications as instructed. You have a follow-up appointment scheduled with Dr. Lidia Garay in [place] ([facility]) on 08/16 @ 2:45pm. This is for follow-up from this hospitalization. At this appointment, referrals can be placed to see Neurology for outpatient evaluation for your hand. Please contact [facility] Neurology for an appointment to consider nerve conduction studies on your hand. The case was discussed with Pinky Varghese PA-C and Dr. Mike Pruitt is also aware. Their number is You will continue the Doxycycline antibiotic as previously prescribed. Home Health nursing has been ordered to help with daily packing of the wound until it closes. You will need to follow-up with Dr. Familia Briceno in [facility]- General Surgery office in one week. The number to his office is . Please hold the Lantus until you see Dr. Garay, and please check your blood sugar at home and bring these readings to all your appointments. I would recommend am fasting readings and two hours after eating 1 or 2 meals. Be sure to document the time of day, too. You will need to follow-up with Dr. Mccarty's office (Orthopedics) in one week for re-evaluation of your hand. Please call [phone] for an appointment. A brace has been ordered for you. Continue all recommendations from Nephrology including weekly iron infusions which will be orchestrated during your dialysis treatments. Cont with dialysis treatments three times per week as scheduled in [place]. It was a pleasure taking care of you! Call if you have any questions or problems. [facility] 24 hours a day by calling [phone]. Take care of yourself. Lily Díaz, DO [facility] Additional Copies To Lidia Garay D.O.
--- NOTE | 2016-08-10 23:39 | Progress Note ---
Medicine Progress Note Date & Time of Visit: Aug 09, 2016 at 12:16. Subjective no pain -pt reports no sciatica either -afebrile -tolerating PO Objective Last 8 Hrs Date Time Temp Pulse Resp B/P (MAP) Pulse Ox O2 Delivery O2 Flow Rate FiO2 08/09/16 08:10 Room Air 08/09/16 08:06 37.2 80 18 138/76 (96) 95 Room Air Physical Exam: GEN: WNWD, in no acute distress, alert and appropriate HEENT: NC/AT, normal sclerae, MMM CARDIO: reg rate, S1/2 heard without m/g/r CHEST-catheter with dried blood, pressure dressing in place. LUNGS: CTA bilaterally, no crackles, rales or wheezes, good diaphragmatic excursion ABD: soft, non-tender, non-distended, no rebound or guarding, +BS EXTREMITY: RP and DP palpable 2+ bilat, no LE swelling or edema, extremities are warm and well-perfused. R wrist with brown macular irregularly shaped lesion-m[place]ster in color, TTP around this area. Sensation loss an difficulty moving 5th finger. NEURO: CN 2-12 grossly intact, focal deficit in hand as above. MUSC: no gross focal deficits. SKIN: warm and dry and wounds as above. Of note he does have a buttock wound, however, this was not visualized at this time as patient is very private and mother is in the room and very concerned, and this was reportedly just evaluated by nursing staff. Laboratory Results: Last 24 Hours Test 08/08/16 16:30 08/08/16 16:58 08/08/16 20:30 08/09/16 06:41 Hemoglobin 11.0 g/dL 10.5 g/dL Hematocrit 32.6 % 32.2 % Bedside Glucose 97 mg/dl 143 mg/dl White Blood Count 13.83 K/uL Red Blood Count 3.52 M/uL Mean Corpuscular Volume 91.5 fL Mean Corpuscular Hemoglobin 29.8 pg Mean Corpuscular Hemoglobin Concent 32.6 g/dl Platelet Count 261 K/uL Mean Platelet Volume 10.4 fL Neutrophils (%) (Auto) 69.3 % Lymphocytes (%) (Auto) 9.0 % Monocytes (%) (Auto) 17.5 % Eosinophils (%) (Auto) 3.2 % Basophils (%) (Auto) 0.7 % Neutrophils # (Auto) 9.59 K/uL Lymphocytes # (Auto) 1.25 K/uL Monocytes # (Auto) 2.42 K/uL Eosinophils # (Auto) 0.44 K/uL Basophils # (Auto) 0.09 K/uL RDW Standard Deviation 51.0 fL RDW Coefficient of Variation 15.6 % Immature Granulocyte % (Auto) 0.3 % Immature Granulocyte # (Auto) 0.04 K/uL Sodium Level 136 mmol/L Potassium Level 4.1 mmol/L Chloride Level 98 mmol/L Carbon Dioxide Level 28 mmol/L Anion Gap 10.0 mmol/L Blood Urea Nitrogen 67 mg/dl Creatinine 6.00 mg/dl Est Creatinine Clear Calc Drug Dose 20.7 ml/min Estimated GFR () 12.2 Estimated GFR (Non- 10.5 BUN/Creatinine Ratio 11.2 Random Glucose 92 mg/dl Calcium Level 10.7 mg/dl Test 08/09/16 08:07 Bedside Glucose 85 mg/dl Assessment & Plan 41 yo M with multiple medical problems presented to the hospital yesteray, same day as discharge, after L anterior chets hemodialysis catheter began bleeding. The patient reports calling the Hospitalist pager and was advised. He reports monitoring the area but states that the bleeding continued so he called EMS as he currently cannot drive and his mother advised him she wanted him to take an ambulance, she would not pick him up. In the ER, he reports the pressure application was hurting too much and so was the sandbag. He was advised that this is the treatment and unfortunately it is not always the most comfortable. He subsequently received a pressure bandage and Vascular surgery saw him and recommends to continue pressure on the area for 24 hours. The patient is not on blood thinners. Home aspirin was held. Incidentally he is also refusing SCDs an verbalized understanding of the risks of blood clots if not compliant. Mother witnessed this conversation. We also discussed briefly the other possibilities such as AV grafting which is not immediate, and replacement of the HD catheter if the bleeding cannot be controlled. Will follow Vascular Surg recs. He is currently HD stable and has had no rop in H/H, bleeding is controlled with pressure bandage in place. Nephro to assist with inpatient dialysis while he is here. ISS ordered, Lantus placed on hold with recent hypoglycemia over the last few days; patient reports that he isn't eating like he normally does at home. Has a MRSA wound on butocks, which is not requiring packing at this time. Gen Surg follow-up is in one week and he continues on a 21 ay doxy course. He is compensated from a heart failure standpoint. Active problems: 1. Bleeding from HD cathether site placed 08/03 2. ESRD on HD as of 08/04 3. NICM 4. L butock MRSA wound-on doxy 5. Sciatica on L 6. Anemia-multifactorial in setting of ESRD-stable 7. Leukocytosis DVT proph: SCDs [facility] Hospital[facility] Consultants: Vascular, Nephro Current Inpatient Medications: Current Inpatient Medications Medications (Trade) Dose Ordered Sig/Niki Route Start Time Stop Time Status Last Admin Dose Admin Miscellaneous (Iv Fluids Completed) 1 ea PRN PRN N/A 08/08/16 05:00 08/08/17 04:59 Acetaminophen (Tylenol Tab) 650 mg Q4H PRN PO 08/08/16 05:00 09/07/16 04:59 Insulin Aspart (novoLOG ASPART) SLIDING SCALE If C... ACHS SC 08/08/16 07:00 09/07/16 06:59 Glucose (Glucose 40% Gel) 15-30 GRAMS 15 GRAMS... UD PRN PO 08/08/16 05:00 09/07/16 04:59 Glucose (Glucose Chew Tab) 4-8 Tablets 4 Tabl... UD PRN PO 08/08/16 05:00 09/07/16 04:59 Dextrose (Dextrose 50% 50ML Syringe) 25-50ML OF 50% DW IV FOR... UD PRN IV 08/08/16 05:00 09/07/16 04:59 Glucagon (Glucagon Inj) 1 mg UD PRN SQ 08/08/16 05:00 09/07/16 04:59 Hydromorphone HCl (Dilaudid Inj) 0.5 mg Q6H PRN IV 08/08/16 05:00 08/22/16 04:59 Ondansetron HCl (Zofran Inj) 4 mg Q6H PRN IV 08/08/16 05:00 09/07/16 04:59 Tramadol HCl (Ultram Tab) 25 mg Q6H PRN PO 08/08/16 05:00 09/07/16 04:59 Doxycycline Hyclate (Vibramycin Cap) 100 mg BID PO 08/08/16 09:00 08/15/16 08:59 08/09/16 08:59 100 MG Hydralazine HCl (Apresoline Tab) 50 mg TID PO 08/08/16 09:00 09/07/16 08:59 08/09/16 09:00 50 MG Isosorbide Dinitrate (Isordil Tab) 20 mg BID@0700,1200 PO 08/08/16 07:00 09/07/16 06:59 08/09/16 06:27 20 MG Metolazone (Zaroxolyn Tab) 5 mg DAILY@0830 PO 08/08/16 08:30 09/07/16 08:29 08/09/16 08:14 5 MG Metoprolol Succinate (Toprol Xl Tab) 12.5 mg BID PO 08/08/16 09:00 09/07/16 08:59 08/09/16 08:59 12.5 MG Tobramycin Sulfate (Tobrex Oph Soln) 1 drops DAILY OPL 08/08/16 09:00 08/18/16 08:59 08/09/16 08:59 1 DROPS Torsemide (Demadex Tab) 20 mg QPM PO 08/08/16 21:00 09/07/16 20:59 08/08/16 20:54 20 MG Torsemide (Demadex Tab) 100 mg DAILY@0900 PO 08/08/16 09:00 09/07/16 08:59 08/09/16 09:00 100 MG Calcitriol (Rocaltrol Cap) 0.5 mcg MoWeFr@0900 PO 08/08/16 09:00 09/07/16 08:59 08/08/16 08:33 0.5 MCG Insulin Glargine (Lantus Solostar Pen) 10 unit BID SC 08/08/16 09:00 09/07/16 08:59 Future Hold 08/08/16 08:58 10 UNIT Lorazepam 0.5 mg/ Syringe 1 ml @ 1 mls/min Q4H PRN IV 08/08/16 06:00 09/07/16 05:59 Sevelamer HCl (Renvela) 800 mg AC PO 08/08/16 12:00 09/07/16 11:59 08/09/16 08:13 800 MG
--- NOTE | 2016-09-04 21:39 | EMERGENCY ROOM VISIT NOTE ---
History First contact with patient: 00:02 Chief Complaint: BLEEDING Stated Complaint: BLEEDING Nursing Triage Summary: Patient presents with bleeding from dialysis catheter insertion site Dialysis catheter was inserted on 08/03/[address] Encarnacion for acute renal failure Reports he was discharged today at around 1330 and bleeding began at 1430 History of Present Illness The patient is a 41 year old male who presents to the Emergency Room with complaints of bleeding from permacath site that was placed [address] Encarnacion for end-stage renal disease. Patient had 2 rounds of hemodialysis without difficulties. Patient states today around 2:00 he felt some leaking from the area. Has been slowly oozing since. He is on baby aspirin. No injury to the area. Patient denies chest pain, dyspnea, lightheadedness, dizziness or any other medical complaints. Review of Systems See HPI for pertinent positives & negatives. A total of 6 systems reviewed and were otherwise negative. Past Medical/Surgical History Medical Problems: (1) A-fib (2) Anemia (3) Chest pain (4) Chest pain (5) CKD (chronic kidney disease), stage IV (6) Diabetes (7) ESRD (end stage renal disease) on dialysis (8) Hemorrhage from dialysis catheter (9) Hypertension (10) Idiopathic cardiomyopathy (11) Sciatica (12) Secondary hyperparathyroidism of renal origin (13) Wound infection Family History Patient reports no known family medical history. Social History Smoking Status: Unknown if Ever Smoked Alcohol Use: none Drug Use: none Marital Status: single Occupation Status: unemployed Current/Historical Medications Scheduled Aspirin (Aspirin Ec), 81 MG PO DAILY B-Complex W/ C & Folic Acid (Renal), 1 CAP PO QAM Calcitriol (Calcitriol), 1 CAP PO MoWeFr@0900 Doxycycline Hyclate (Doxycycline Hyclate), 100 MG PO BID Hydralazine Hcl (Apresoline), 50 MG PO TID Insulin Aspart (Novolog Flexpen), UNITS SC AC Isosorbide Dinitrate (Isordil), 20 MG PO BID Metolazone (Zaroxolyn), 5 MG PO DAILY Metoprolol Succinate (Metoprolol Succinate ER), 12.5 MG PO BID Sevelamer Carbonate (Renvela), 1 TAB PO AC Spironolactone (Aldactone), 25 MG PO DAILY Tobramycin Sulfate (Ophth) (Tobrex Oph Jessica), 1 DROPS OPL DAILY Torsemide (Demadex), 20 MG PO QPM Torsemide (Demadex), 100 MG PO QAM Scheduled PRN Albuterol Hfa (Ventolin Hfa), 2 PUFFS INH Q6H PRN for SOB/Wheezing Allergies Coded Allergies: Cat Dander (Verified Allergy, Intermediate, RESPIRATORY SX, 08/08/16) Dust (Verified Allergy, Intermediate, ASTHMA SYMPTOMS, 08/08/16) Heparin (Verified Allergy, Intermediate, GI SYMPTOMS, 08/08/16) Unclassified Drugs (Verified Allergy, Unknown, SOB/COUGH FROM CIGARETTE SMOKE, 08/08/16) Physical Exam Vital Signs Date Time Temp Pulse Resp B/P (MAP) Pulse Ox O2 Delivery O2 Flow Rate FiO2 08/08/16 04:10 79 08/08/16 03:54 79 16 152/97 94 Room Air 08/08/16 03:00 79 16 154/95 98 Room Air 08/08/16 02:07 78 16 155/95 95 Room Air 08/08/16 00:26 78 16 147/88 96 Room Air 08/08/16 00:04 80 08/08/16 00:00 36.8 80 16 147/90 99 Room Air 08/08/16 00:00 99 Room Air Physical Exam VITALS: Vitals are noted on the nurse's note and reviewed by myself. Vital signs stable. GENERAL: Pleasant male, in no acute distress, nondiaphoretic, well-developed well-nourished. SKIN: Capillary reflex less than 2 seconds. HEENT: Normocephalic. PERRLA. EOMI. Nares patent. Mucous membranes moist. Neck is supple without nuchal rigidity. HEART: Regular rate and rhythm 2/6 systolic murmur; left sided chest with permacath insertion of the left internal jugular vein with minimal amount of bright red blood oozing from the site. No signs of infection. LUNGS: Clear to auscultation bilaterally without wheezes, rales or rhonchi. No retractions or accessory muscle use. ABDOMEN: Positive bowel sounds x 4. Normal tympanic percussion. Soft, nontender, without masses or organomegaly. Arvizu sign negative. No guarding or rebound tenderness. MUSCULOSKELETAL: No gross musculoskeletal defects. NEURO: Patient was alert and oriented to person place and time. Normal sensation to light and sharp touch. No focal neurological deficits. Medical Decision & Procedures Laboratory Results Test 08/08/16 00:10 Prothrombin Time 12.3 SECONDS (9.0-12.0) Prothromb Time International Ratio 1.1 (0.9-1.1) Activated Partial Thromboplast Time 29.8 SECONDS (21.0-31.0) Partial Thromboplastin Ratio 1.1 Total Bilirubin 1.0 mg/dl (0.2-1) Aspartate Amino Transf (AST/SGOT) 24 U/L (15-37) Alanine Aminotransferase (ALT/SGPT) 12 U/L (12-78) Alkaline Phosphatase 206 U/L (45-117) Total Protein 9.0 gm/dl (6.4-8.2) Albumin 2.7 gm/dl (3.4-5.0) Globulin 6.3 gm/dl (2.5-4.0) Albumin/Globulin Ratio 0.4 (0.9-2) ED Course Prior records reviewed and summarized as above. Triage Nursing notes reviewed. Additional history obtained from family. The patient's history was concerning for bleeding from permacath site Differential diagnosis: Etiologies such as coagulopathy, open wound, infection, complication of permacath, as well as others were entertained.. Physical examination: As above ER treatment provided: Pressure dressing On reassessment the patient felt better. Diagnostics interpreted by me: The labs revealed stable H&H per chart review Consultation: A consultation was placed with Dr. Encarnacion. The case was discussed and diagnostics were reviewed. He recommends direct pressure and have the patient go to his dialysis appointment today. I consulted Dr. Welch, medicine and will evaluate the patient for possible admission as the permacath site will not stop bleeding. This appears to be bleeding from permacath.. Patient was not compliant with blood in the nares apply direct pressure and states is too painful for him. Light pressure and the sandbag was placed for a few hours with no real resolution of this slow trickle of blood. Patient will be evaluated by medicine for possible admission. Several attempts were made to stop the bleeding. Patient cannot tolerate the pressure and refused further pressure on his chest. By the evaluation outlined above emergent etiologies such as infection, as well as others were deemed relatively unlikely. The pt informed about the findings as listed above. All questions were answered and pleased with the treatment. Case reviewed with my attending Medical Decision As above Impression Primary Impression: Bleeding due to dialysis catheter placement Departure Information Dispostion Being Evaluated By Hospitalist Condition FAIR Referrals No Doctor, Assigned (PCP) Patient Instructions My [facility] Problem Qualifiers Primary Impression: Bleeding due to dialysis catheter placement Encounter type: initial encounter Qualified Codes: T82.838A - Hemorrhage due to vascular prosthetic devices, implants and grafts, initial encounter
[2016-11-01] MEDS ORDERED: METO25TA3 PO (13:30)
== END 2016-08-09 19:05 | disposition home or self-care (01) ==
LOC: EDBD 23:58 → C.EDB 23:59 → C.MSW 08-08 04:53 → ENRESERV 08-08 04:59
PROVIDERS: ADMIT Hospitalist; ATTEND Hospitalist
DX: T85.838A Hemorrhage due to other internal prosthetic devices, implants and grafts, initial encounter (principal); Y83.1 Surgical operation with implant of artificial internal device as the cause of abnormal reaction of the patient, or of later complication, without mention of misadventure at the time of the procedure; S31.809A Unspecified open wound of unspecified buttock, initial encounter; X58.XXXA Exposure to other specified factors, initial encounter; B95.62 Methicillin resistant Staphylococcus aureus infection as the cause of diseases classified elsewhere; D63.1 Anemia in chronic kidney disease; Z79.82 Long term (current) use of aspirin; Z79.4 Long term (current) use of insulin; E11.9 Type 2 diabetes mellitus without complications; I10 Essential (primary) hypertension; I50.22 Chronic systolic (congestive) heart failure; I42.9 Cardiomyopathy, unspecified; E66.01 Morbid (severe) obesity due to excess calories; Z87.891 Personal history of nicotine dependence; Z95.810 Presence of automatic (implantable) cardiac defibrillator

== ENCOUNTER → 2016-09-13 | Outpatient (CLI) | payer OTHER ==
[~2016-09-13] MED LIST changes: -INSDGIPEN SC; +METO25TA3 PO; -RCL25 PO
[2016-09-13 13:03] LABS: ESTIMATED AVERAGE GLUCOSE 140 mg/dl; HA1C FLAG Normal (Normal)
[2016-09-13 13:10] LABS: CHOLESTEROL/HDL RATIO 3.1
== END | disposition home or self-care (01) ==
LOC: C.LABPBG 10:12
PROVIDERS: ATTEND Neuromusculoskeletal Medicine & OMM
DX: Z00.00 Encounter for general adult medical examination without abnormal findings (principal); E11.9 Type 2 diabetes mellitus without complications

== ENCOUNTER → 2016-11-27 | Day surgery (SDC) | payer OTHER ==
[2016-11-01 13:31] VITALS: Ht 190.5 cm; Wt 104.5 kg
[~2016-11-27] VITALS: Ht 190.5 cm; Wt 104.5 kg
[~2016-11-27] MED LIST changes: +500ML BSS 0.3ML EPI 1:1000PF IRRIG ONE; +ACETAMINOPHEN 325 MG TAB PO PRN; +AMVISC PLUS 0.8ML SYRINGE INT OCU ONE; +ATROPINE SULFATE 0.1 MG/ML 5ML SYR IV PRN; -B-COCAP20 PO; +BSS FLUSH ONE; -CALC0.5C17 PO; +DEXTROSE 5% 1000ML 1,000 ML IV SCH; -DXY100 PO; +EpHEDrine SULFATE INJ 50 MG/ML AMP IV PRN; +EpINEphrine INJ 1MG/ML AMP 1 MG/ML AMP ONE; +LACTATED RINGER'S 1000ML 500 ML IV SCH; +LIDOCAINE 3.5% OPH GEL PER APPLICATION CHARGE ONE; +LIDOCAINE HCL 1% MPF 2 ML VIAL ONE; -METO5TAB5 PO; +MIDAZOLAM HCL 1 MG/ML 2ML VIAL ONE; +NURSING VERBAL MED ORDER ONE; +OCUCOAT 1 ML SOLN IO ONE; +POVIDONE-IODINE OP SOLN 30 ML BTL ONE; +PROPARACAINE 0.5% OP SOLN PER DROP CHARGE OPR SCH; -SPIR25TA PO; -TOBR0.3S4 OPL; +TOBRAMYCIN/DEXAMETHASONE OPH OINT PER APPLN CHARGE ONE; -TPRSR25 PO; -VNTHFA/IN INH
--- NOTE | 2016-11-27 07:58 | History & Physical Bridge - SC ---
H&P Re-Evaluation Bridge Note: I have examined the patient, reviewed the History & Physical and in the interval since the performance of the History & Physical I have noted the following changes of clinical significance: No changes noted
[2016-11-27] MEDS: PHENYLEPHRINE HCL 2.5% OP SOLN PER DROP CHARGE OPR SCH ×2 (08:17→08:23)
[2016-11-27] MEDS: TROPICAMIDE 1% OP SOLN PER DROP CHARGE OPR SCH ×2 (08:18→08:24)
[2016-11-27] MEDS: CYCLOPENTOLATE HCL 1% OP SOLN PER DROP CHARGE OPR SCH ×2 (08:19→08:25)
[2016-11-27] MEDS: KETOROLAC 0.5% OP SOLN PER DROP CHARGE OPR SCH ×2 (08:20→08:26)
[2016-11-27] MEDS: GATIFLOXACIN OP SOLN PER DROP CHARGE OPR SCH ×2 (08:21→08:31)
--- NOTE | 2016-11-27 09:05 | Discharge Instructions-SurgCtr ---
Discharge Instructions Date of Service Nov 27, 2016. Visit Reason for Visit: Cataract Right Eye Discharge Discharge Diagnosis / Problem: cataract Discharge Goals Goal(s): Improve function Activity Recommendations Activity Limitations: per Instructions/Follow-up section Anesthesia . Post Anesthesia Instructions: If you have had General Anesthesia or IV Sedation: * Do not drive today. * Resume driving when surgeon permits. * Do not make important decisions or sign legal documents today. * Call surgeon for: 1. Temperature elevations greater than 101 degrees F. 2. Uncontrollable pain. 3. Excessive bleeding. 4. Persistent nausea and vomiting. 5. Medication intolerance (nausea, vomiting or rash). * For nausea and vomiting use only clear liquids such as: tea, soda, bouillon until nausea subsides, then gradually increase diet as tolerated. * If you have any concerns or questions, call your surgeon's office. If physician is unavailable and it is an emergency, call 911 or go to the nearest emergency room. . Diet Recommendations Home Diet: resume previous diet Procedures Procedures Performed: Right Cataract Phacoemulsification With Intraocular Lens Implant Pending Studies Studies pending at discharge: no Medical Emergencies . Who to Call and When: Medical Emergencies: If at any time you feel your situation is an emergency, please call 911 immediately. . Non-Emergent Contact Non-Emergency issues call your: Nursing Informatics Analyst . . "Provider Documentation" section prepared by Rubin Draper. .
--- NOTE | 2016-11-27 09:06 | [facility] Operative Report ---
Operative Report Date of Service Nov 27, 2016. Operative Report 1. PREOPERATIVE DIAGNOSIS: Cataract of the right eye. 2. POSTOPERATIVE DIAGNOSIS: Same. 3. PROCEDURE: Phacoemulsification with intraocular lens implantation of the right eye. SURGEON: Dr. Rubin Draper. ANESTHESIA: Topical Lidocaine gel, 1% Non- Preserved intracameral Lidocaine, and monitored intravenous sedation. INDICATIONS FOR THE PROCEDURE: The patient is a 41 - year-old male with a history of cataract of the right eye causing significant visual impairment. The details of the proposed procedure were explained to the patient who asked appropriate questions and following discussion of all risks, benefits and alternatives agreed to have the procedure done. 4. OPERATION AND FINDINGS: DESCRIPTION OF PROCEDURE: After informed consent was obtained, the patient was brought to the Operating Room at the [facility]. The patient was placed in a supine position and then the right eye was prepped and draped in the usual sterile fashion for intraocular surgery. A drop of topical Lidocaine gel was placed in the operative eye. A wire lid speculum was then placed in the fornices. A corneal paracentesis was then created temporally. The Non-Preserved Lidocaine was then instilled into the anterior chamber. The anterior chamber was then pressurized with viscoelastic. A 2.0 mm clear corneal incision was then created temporally. A cystotome was inserted into the anterior chamber and used to create a tear in the anterior lens capsule. This capsular tear was then used to create a small flap and the flap was dragged in a counterclockwise direction in order to create a continuous curvilinear capsulorrhexis. Hydrodissection was accomplished with balanced salt solution. Phacoemulsification of the lens nucleus was then performed in a standard [id number]-[id number] technique. The phaco time was 19 seconds with an average power of 6 %. The remaining cortical material was removed using irrigation aspiration. The capsular bag was then filled with viscoelastic. A Bausch [employer] Lomb MI60L +19.5 diopters lens was then loaded into the injector and injected into the capsular bag. The remaining viscoelastic was removed with the irrigation aspiration handpiece. The wound was hydrated and then checked and found to be watertight. The intraocular pressure was checked and found to be adequate. The wire lid speculum was removed and the patient's face was cleaned and dried. TobraDex ointment was placed in the inferior fornix. The patient was discharged to the Recovery Room having tolerated the procedure well. There were no complications. The patient will be seen tomorrow in the office for follow-up. I attest to the content of the Intraoperative Record and any orders documented therein. Any exceptions are noted below.
[2016-11-27 09:08] VITALS: TEMP 36.4
[2016-11-27 09:37] VITALS: BP 109/73; PULSE 74; O2SAT 97
--- NOTE | 2016-11-27 09:49 | Anesthesiology Progress Note ---
Anesthesia Post Op Note Date & Time Nov 27, 2016 at 09:48 Vital Signs Pain Intensity: 0 Vital Signs Past 12 Hours Date Time Temp Pulse Resp B/P (MAP) Pulse Ox O2 Delivery O2 Flow Rate FiO2 11/27/16 09:37 74 16 109/73 (85) 97 Room Air 11/27/16 09:08 36.4 79 16 115/77 (90) 95 Room Air 11/27/16 08:10 36.7 77 16 93/51 (65) 96 Room Air Notes Mental Status: alert / awake / arousable, participated in evaluation Nausea / Vomiting: adequately controlled Pain: adequately controlled Airway Patency, RR, SpO2: stable & adequate BP & HR: stable & adequate Hydration State: stable & adequate Anesthetic Complications: no major complications apparent Patient with repeat BG of 76 and drinking orange juice to bring it up further
== END | disposition home or self-care (01) ==
LOC: X.SURG 07:19
PROVIDERS: ATTEND Ophthalmology
DX: H26.9 Unspecified cataract (principal); E11.36 Type 2 diabetes mellitus with diabetic cataract; I48.91 Unspecified atrial fibrillation; I10 Essential (primary) hypertension; J45.909 Unspecified asthma, uncomplicated; Z99.2 Dependence on renal dialysis; Z68.28 Body mass index [BMI] 28.0-28.9, adult; Z79.4 Long term (current) use of insulin; Z79.82 Long term (current) use of aspirin

== ENCOUNTER → 2016-12-25 | Day surgery (SDC) | payer OTHER ==
[2016-12-20 10:37] VITALS: Ht 190.5 cm; Wt 111.4 kg
[~2016-12-25] VITALS: Ht 190.5 cm; Wt 111.4 kg
[~2016-12-25] MED LIST changes: -500ML BSS 0.3ML EPI 1:1000PF IRRIG ONE; -ACETAMINOPHEN 325 MG TAB PO PRN; -AMVISC PLUS 0.8ML SYRINGE INT OCU ONE; +APIX1TAB PO; -ATROPINE SULFATE 0.1 MG/ML 5ML SYR IV PRN; -BSS FLUSH ONE; +CYCLOPENTOLATE HCL 1% OP SOLN PER DROP CHARGE OPL SCH; -DEXTROSE 5% 1000ML 1,000 ML IV SCH; -EpHEDrine SULFATE INJ 50 MG/ML AMP IV PRN; -EpINEphrine INJ 1MG/ML AMP 1 MG/ML AMP ONE; +GATIFLOXACIN OP SOLN PER DROP CHARGE OPL SCH; -HYDR-4717 PO; -ISOS20TA15 PO; +KETOROLAC 0.5% OP SOLN PER DROP CHARGE OPL SCH; -LIDOCAINE 3.5% OPH GEL PER APPLICATION CHARGE ONE; -LIDOCAINE HCL 1% MPF 2 ML VIAL ONE; +METR500T PO; -MIDAZOLAM HCL 1 MG/ML 2ML VIAL ONE; -NURSING VERBAL MED ORDER ONE; -OCUCOAT 1 ML SOLN IO ONE; +PHENYLEPHRINE HCL 10% OP SOLN PER DROP CHARGE OPL SCH; +PHENYLEPHRINE HCL 2.5% OP SOLN PER DROP CHARGE OPL SCH; -POVIDONE-IODINE OP SOLN 30 ML BTL ONE; +PROPARACAINE 0.5% OP SOLN PER DROP CHARGE OPL SCH; -PROPARACAINE 0.5% OP SOLN PER DROP CHARGE OPR SCH; -TOBRAMYCIN/DEXAMETHASONE OPH OINT PER APPLN CHARGE ONE; -TORS100T13 PO; -TORS20TA2 PO; +TROPICAMIDE 1% OP SOLN PER DROP CHARGE OPL SCH; +VANC1CAP3 PO
== END | disposition home or self-care (01) ==
LOC: EDSTATUS 12:00 → C.PAT 12:01
PROVIDERS: ATTEND Ophthalmology
DX: Z01.818 Encounter for other preprocedural examination (principal); I48.91 Unspecified atrial fibrillation; I42.9 Cardiomyopathy, unspecified; I13.2 Hypertensive heart and chronic kidney disease with heart failure and with stage 5 chronic kidney disease, or end stage renal disease; I50.9 Heart failure, unspecified; Z95.810 Presence of automatic (implantable) cardiac defibrillator; N18.6 End stage renal disease; E11.22 Type 2 diabetes mellitus with diabetic chronic kidney disease; E11.42 Type 2 diabetes mellitus with diabetic polyneuropathy; Z99.2 Dependence on renal dialysis; M54.5 Low back pain; Z79.82 Long term (current) use of aspirin; Z79.4 Long term (current) use of insulin; Z79.899 Other long term (current) drug therapy; Z53.8 Procedure and treatment not carried out for other reasons; H26.9 Unspecified cataract

== ENCOUNTER → 2017-01-15 | Outpatient (CLI) | payer OTHER ==
[~2017-01-15] MED LIST changes: -CYCLOPENTOLATE HCL 1% OP SOLN PER DROP CHARGE OPL SCH; -GATIFLOXACIN OP SOLN PER DROP CHARGE OPL SCH; -KETOROLAC 0.5% OP SOLN PER DROP CHARGE OPL SCH; -LACTATED RINGER'S 1000ML 500 ML IV SCH; -PHENYLEPHRINE HCL 10% OP SOLN PER DROP CHARGE OPL SCH; -PHENYLEPHRINE HCL 2.5% OP SOLN PER DROP CHARGE OPL SCH; -PROPARACAINE 0.5% OP SOLN PER DROP CHARGE OPL SCH; -TROPICAMIDE 1% OP SOLN PER DROP CHARGE OPL SCH
[2017-01-15 17:25] LABS: HEMATOCRIT 28.9 % (42-52); HEMOGLOBIN 9.5 g/dL (14.0-18.0); MEAN CELL VOLUME 98.3 fL (80-100); MEAN CORPUSCULAR HEMOGLOBIN 32.3 pg (25-34); MEAN CORPUSCULAR HGB CONC 32.9 g/dl (32-36); MEAN PLATELET VOLUME 11.2 fL (7.4-10.4); PLATELET COUNT 215 K/uL (130-400); RED CELL DISTRIBUTION WIDTH CV 17.4 % (11.5-14.5); RED CELL DISTRIBUTION WIDTH SD 62.5 fL (36.4-46.3); WHITE BLOOD COUNT 11.92 K/uL (4.8-10.8)
[2017-01-15 17:34] LABS: INR 1.1 (0.9-1.1)
[2017-01-15 18:27] LABS: BLOOD UREA NITROGEN 65 mg/dl (7-18); CALCIUM 9.8 mg/dl (8.5-10.1); CARBON DIOXIDE 21 mmol/L (21-32); CREATININE 7.24 mg/dl (0.60-1.40); GLUCOSE 117 mg/dl (70-99); POTASSIUM 5.1 mmol/L (3.5-5.1); SODIUM 132 mmol/L (136-145)
== END | disposition home or self-care (01) ==
LOC: C.LABPBG 12:50
PROVIDERS: ATTEND Ophthalmology
DX: H33 Retinal detachments and breaks (principal)

== ENCOUNTER → 2017-01-22 | Day surgery (SDC) | payer OTHER ==
[2017-01-16 11:28] VITALS: Ht 190.5 cm; Wt 104.5 kg
[~2017-01-22] VITALS: Ht 190.5 cm; Wt 104.5 kg
[~2017-01-22] MED LIST changes: +500ML BSS 0.3ML EPI 1:1000PF IRRIG ONE; +ACETAMINOPHEN 325 MG TAB PO PRN; +AMVISC PLUS 0.8ML SYRINGE INT OCU ONE; +ATROPINE SULFATE 0.1 MG/ML 5ML SYR IV PRN; +BSS FLUSH ONE; +EpHEDrine SULFATE INJ 50 MG/ML AMP IV PRN; +EpINEphrine INJ 1MG/ML AMP 1 MG/ML AMP ONE; +FENTANYL CITRATE INJ 50 MCG/1 ML 2 ML VIAL ONE; +LACTATED RINGER'S 1000ML 500 ML IV SCH; +LIDOCAINE 3.5% OPH GEL PER APPLICATION CHARGE ONE; +LIDOCAINE HCL 1% MPF 2 ML VIAL ONE; +MIDAZOLAM HCL 1 MG/ML 2ML VIAL ONE; +OCUCOAT 1 ML SOLN IO ONE; +PHENYLEPHRINE HCL 10% OP SOLN PER DROP CHARGE OPL SCH; +POVIDONE-IODINE OP SOLN 30 ML BTL ONE; +PROPARACAINE 0.5% OP SOLN PER DROP CHARGE OPL SCH; +TOBRAMYCIN/DEXAMETHASONE OPH OINT PER APPLN CHARGE ONE; +TRYPAN BLUE 0.15% FOR SURGI CENTER ONLY OP ONE
[2017-01-22] MEDS: PHENYLEPHRINE HCL 2.5% OP SOLN PER DROP CHARGE OPL SCH ×2 (08:35→08:41)
[2017-01-22] MEDS: TROPICAMIDE 1% OP SOLN PER DROP CHARGE OPL SCH ×2 (08:36→08:41)
[2017-01-22] MEDS: CYCLOPENTOLATE HCL 1% OP SOLN PER DROP CHARGE OPL SCH ×2 (08:37→08:42)
[2017-01-22] MEDS: KETOROLAC 0.5% OP SOLN PER DROP CHARGE OPL SCH ×2 (08:38→08:43)
[2017-01-22] MEDS: GATIFLOXACIN OP SOLN PER DROP CHARGE OPL SCH ×2 (08:39→08:53)
--- NOTE | 2017-01-22 09:37 | Discharge Instructions-SurgCtr ---
Discharge Instructions Date of Service Jan 22, 2017. Visit Reason for Visit: Left Cataract Discharge Discharge Diagnosis / Problem: cataract Discharge Goals Goal(s): Improve function Medications Stopped Medications Name(s): has been off blood thinners x 2 weeks Activity Recommendations Activity Limitations: per Instructions/Follow-up section Anesthesia . Post Anesthesia Instructions: If you have had General Anesthesia or IV Sedation: * Do not drive today. * Resume driving when surgeon permits. * Do not make important decisions or sign legal documents today. * Call surgeon for: 1. Temperature elevations greater than 101 degrees F. 2. Uncontrollable pain. 3. Excessive bleeding. 4. Persistent nausea and vomiting. 5. Medication intolerance (nausea, vomiting or rash). * For nausea and vomiting use only clear liquids such as: tea, soda, bouillon until nausea subsides, then gradually increase diet as tolerated. * If you have any concerns or questions, call your surgeon's office. If physician is unavailable and it is an emergency, call 911 or go to the nearest emergency room. . Diet Recommendations Home Diet: resume previous diet Procedures Procedures Performed: Left Cataract Phacoemulsification With Intraocular Lens Implant Pending Studies Studies pending at discharge: no Medical Emergencies . Who to Call and When: Medical Emergencies: If at any time you feel your situation is an emergency, please call 911 immediately. . Non-Emergent Contact Non-Emergency issues call your: Right Of Way Worker . . "Provider Documentation" section prepared by Rubin Draper. .
--- NOTE | 2017-01-22 09:38 | [facility] Operative Report ---
Operative Report Date of Service Jan 22, 2017. Operative Report 1. PREOPERATIVE DIAGNOSIS: Cataract of the left eye. 2. POSTOPERATIVE DIAGNOSIS: Same. 3. PROCEDURE: Phacoemulsification with intraocular lens implantation of the left eye. SURGEON: Dr. Rubin Draper. ANESTHESIA: Topical Lidocaine gel, 1% Non- Preserved intracameral Lidocaine, and monitored intravenous sedation. INDICATIONS FOR THE PROCEDURE: The patient is a 42 - year-old male with a history of cataract of the left eye causing significant visual impairment. The details of the proposed procedure were explained to the patient who asked appropriate questions and following discussion of all risks, benefits and alternatives agreed to have the procedure done. The patient had a mature cataract and therefore plans were made preoperatively to use Vision Blue dye. 4. OPERATION AND FINDINGS: DESCRIPTION OF PROCEDURE: After informed consent was obtained, the patient was brought to the Operating Room at the [facility]. The patient was placed in a supine position and then the left eye was prepped and draped in the usual sterile fashion for intraocular surgery. A drop of topical Lidocaine gel was placed in the operative eye. A wire lid speculum was then placed in the fornices. A corneal paracentesis was then created temporally. The Non-Preserved Lidocaine was then instilled into the anterior chamber. Under an air bubble the anterior lens capsule was painted with Vision Blue dye. The excess dye was then irrigated from the eye using balanced salt solution. The anterior chamber was then pressurized with viscoelastic. A 2.0 mm clear corneal incision was then created temporally. A cystotome was inserted into the anterior chamber and used to create a tear in the anterior lens capsule. This capsular tear was then used to create a small flap and the flap was dragged in a counterclockwise direction in order to create a continuous curvilinear capsulorrhexis. Hydrodissection was accomplished with balanced salt solution. Phacoemulsification of the lens nucleus was then performed in a standard [id number] technique. The phaco time was 20 seconds with an average power of 9 %. The remaining cortical material was removed using irrigation aspiration. The capsular bag was then filled with viscoelastic. A Bausch & Lomb MI60L +19.5 diopters lens was then loaded into the injector and injected into the capsular bag. The remaining viscoelastic was removed with the irrigation aspiration handpiece. The wound was hydrated and then checked and found to be watertight. The intraocular pressure was checked and found to be adequate. The wire lid speculum was removed and the patient's face was cleaned and dried. TobraDex ointment was placed in the inferior fornix. The patient was discharged to the Recovery Room having tolerated the procedure well. There were no complications. The patient will be seen tomorrow in the office for follow-up. I attest to the content of the Intraoperative Record and any orders documented therein. Any exceptions are noted below.
[2017-01-22 09:40] VITALS: TEMP 36.7
--- NOTE | 2017-01-22 10:20 | Anesthesia Progress Nt - [facility] ---
Anesthesia Post Op Note Date & Time Jan 22, 2017 at 10:20 Vital Signs Pain Intensity: 0 Vital Signs Past 12 Hours Date Time Temp Pulse Resp B/P (MAP) Pulse Ox O2 Delivery O2 Flow Rate FiO2 01/22/17 08:22 36.7 93 18 117/78 (91) 92 Room Air Notes Mental Status: alert / awake / arousable, participated in evaluation Pt Amnestic to Procedure: Yes Nausea / Vomiting: adequately controlled Pain: adequately controlled Airway Patency, RR, SpO2: stable & adequate BP & HR: stable & adequate Hydration State: stable & adequate Anesthetic Complications: no major complications apparent
[2017-01-22 10:24] VITALS: BP 111/72; PULSE 86; O2SAT 96
== END | disposition home or self-care (01) ==
LOC: X.SURG 07:45
PROVIDERS: ATTEND Ophthalmology
DX: H26.9 Unspecified cataract (principal); I73.9 Peripheral vascular disease, unspecified; I48.91 Unspecified atrial fibrillation; E11.9 Type 2 diabetes mellitus without complications; I10 Essential (primary) hypertension; Z79.82 Long term (current) use of aspirin; Z79.4 Long term (current) use of insulin